=== PATIENT | female | born 1935 | race Hispanic/Latino ===

== ENCOUNTER 2016-05-26 16:02 | Inpatient (IN) | payer OTHER, MEDICARE ==
[2016-05-26 16:33] VITALS: BMI 25.3
[2016-05-26] MEDS ORDERED: Levalbuterol 0.63 MG/3 ML Inhal Soln UD IH PRN (17:02)
[2016-05-26] MEDS: Silver Sulfadiazine 1% Cream (20 gm) TOP SCH (18:01)
[2016-05-26] MEDS: Levalbuterol 0.63 MG/3 ML Inhal Soln UD IH SCH (20:22)
[2016-05-27] MEDS: Levalbuterol 0.63 MG/3 ML Inhal Soln UD IH SCH ×3 (07:45→20:16)
--- NOTE | 2016-05-27 08:32 | CON ---
DATE: 05/26/2016 REFERRING PHYSICIAN: Dr. England. REASON FOR CONSULT: Cough and shortness of breath, history of pulmonary hypertension, also has sleep apnea syndrome but noncompliant with CPAP and BiPAP. HISTORY OF PRESENT ILLNESS: This is an 80-year-old female with past medical history significant for chronic obstructive lung disease, gastroesophageal reflux disease, cardiac diastolic dysfunction, pul monary hypertension, hyperlipidemia, memory impairment, history of rheumatoid arthritis, who came in to acute side of the hospital with shortness of breath, cough, leg swelling. Received diuretics and felt much better. Presently admitted to [facility] to continue care. She has a known history of sleep temperature regulator pyrometer ea syndrome. Did not use CPAP and BiPAP, was claustrophobic. PAST MEDICAL HISTORY: Chronic obstructive lung disease, history of cardiac diastolic dysfunction, sl eep apnea syndrome, hypertension, hyperlipidemia, coronary artery disease; rheumatoid arthritis, been on methotrexate; and thrombocytopenia. ALLERGIES: SHE IS ALLERGIC TO LEVAQUIN, ALBUTEROL, CODEINE. SOCIAL HISTORY: Presently nonsmoker, nondrinker. FAMILY HISTORY: No significant cardiopulmonary disease reported. MEDICATIONS: She is on Colace 100 mg twice a day, Coreg 3.125 mg twice a day, Ecotrin 81 mg daily, L asix 40 mg twice a day, Lipitor 40 mg daily, Lovenox 40 mg daily, Pepcid 40 mg at bedtime, Plavix 75 mg daily, Remeron 30 mg at bedtime, Rocephin 1 g IV daily, Xopenex inhaler q. 6 hours p.r.n. and q. 8 hours around the clock. REVIEW OF SYSTEMS: No headache. Has a stuffy nose and rhinitis, short of breath, mild cough. No ch est pain. No nausea, no vomiting, no diarrhea. Still has trace leg swelling with some erythema. PHYSICAL EXAMINATION: GENERAL: Sitting up in a chair in no acute distress. VITAL SIGNS: Temp is 98, heart rate is 84, respiratory rate is 20, blood pressure 137/85, pulse ox 9 5% on room air. HEENT: Moist mucous membrane. Crowded airway. Nasal mucosa is congested. NECK: Supple. No JVD. LUNGS: Has scattered rhonchi. HEART: S1, S2. ABDOMEN: Soft, nontender. No organomegaly. EXTREMITIES: Does have a trace edema with mild erythema. NEUROLOGIC: Awake, alert, follows simple commands, but forgetful. LABORATORY DATA: Shows hemoglobin 12.9, hematocrit 37.3, WBC 4.8, platelet is 121. INR is 1.14 and PTT 26. Had blood gases done 3 days ago which shows VBG pH 7.31, pCO2 of 61 and O2 of 24. Sodium 14 4, potassium 3.9, chloride 101, bicarbonate 34, BUN 29, creatinine 1.1, glucose is 85, calcium is 9.6 , phosphorus is 4.4, magnesium 2.0. TSH 3.37. She had a V/Q scan done today which shows limited study, particularly the ventilation study. No defi nite evidence of segmental mismatched perfusion defect. Low probability ventilation perfusion scan o f pulmonary embolism. Venous ultrasound: There is no DVT. Had echocardiogram done which shows righ t ventricle systolic pressure is 46, left ventricular ejection fraction is 65, and there is diastolic left ventricular heart failure. Chest x-ray done 3 days ago shows no active pulmonary disease repor lula. There is a pacemaker device. IMPRESSION AND PLAN: Cardiac diastolic dysfunction with pulmonary hypertension, history of chronic l dennis disease, also has a history of sleep apnea syndrome; rheumatoid arthritis, been on methotrexate; recently has a loss of memory, is this Alzheimer's type dementia? I will suggest trying her on CPAP 7 cm, 35% oxygen, while sleeping. I doubt she can keep it but it is worth to try it because, especia lly with cognitive deficits, pulmonary hypertension may be the contribution from sleep apnea syndrome . Continue inhaled bronchodilator. Continue diuretics. Fall precautions. Pulmonary hypertension c ould also be contribution from her connective tissue disease. Thank you, and will follow with you. Berenice Whitt MD cc: [id number] TT: 05/27/2016 08:31:12 Confirmation # [id number] Dictation # [id number] mn
[2016-05-27] MEDS ORDERED: Enoxaparin 40 mg Syringe SC SCH (10:00)
[2016-05-27] MEDS ORDERED: cefTRIAXone 1 gm 100 ML IVPB SCH (10:00)
[2016-05-27] MEDS: Silver Sulfadiazine 1% Cream (20 gm) TOP SCH ×2 (10:20→17:37)
[2016-05-27] MEDS: Multivitamin With Minerals Tab PO SCH (10:21)
[2016-05-27] MEDS: Fluticasone Nasal 50 mcg/Spray NS SCH (10:54)
--- NOTE | 2016-05-27 12:40 | CON ---
DATE: 05/27/2016 REASON FOR CONSULTATION: Cardiac evaluation, shortness of breath, leg edema and congestive heart modesta lure. BRIEF CLINICAL HISTORY: This is an 80-year-old female with past medical history of coronary artery d isease and multiple stents, history of paroxysmal atrial fibrillation, history of obstructive sleep a pnea, history of pharyngeal dysphagia, history of sick sinus syndrome, status post permanent pacemake r, admitted with decompensated congestive heart failure. The patient underwent treatment for CHF in acute medical care floor in telemetry. Now patient transferred to TCU for continuity of the care. C ardiac consult was called for continuity of the care in transitional care unit. PAST MEDICAL HISTORY: Significant for sick sinus syndrome, status post permanent pacemaker; loop rec order that was implanted because of recurrent syncope, found to have 6-second pause, so loop recorder was upgraded to permanent pacemaker; history of cardiac catheterization in 2015. Last stent was do ne on 05/28/2015 where the patient had a stent in the circumflex. History of thrombocytopenia post s tent; off of Plavix for a while. MOST RECENT CARDIAC WORKUP: The patient had echocardiography 05/27/2015 shows normal LV function, mi ld aortic stenosis, trace to mild mitral regurgitation, mild tricuspid regurgitation. Last stress te st 11/18/2015 shows no reversible ischemia 6 months post PTCA, ejection fraction 71%. Last catheteri zation on 05/28/2015 that revealed dominant right coronary artery, left anterior descending artery pa tent stent noted with mild stenosis/40% stenosis noted, distal circumflex and ramus intermedius small caliber vessels, right coronary artery is a large caliber vessel, 60-70%, FFR of 0.79 so not done. PTCA of the circumflex was done and plain balloon angioplasty of the circumflex was done. Again, FFR was 0.91 RCA, so PTCA of RCA was not done. SOCIAL HISTORY: Denies smoking. Denies any history of alcohol abuse. CURRENT MEDICATIONS: The patient is taking multivitamin, Xopenex, Pepcid, Colace, Plavix, aspirin, B enicar, atorvastatin. REVIEW OF SYSTEMS: As per HPI. PHYSICAL EXAMINATION: VITAL SIGNS: Temperature afebrile, heart rate 70, blood pressure 133/75. HEENT: PERRLA. Extraocular muscles intact. NECK: Supple. No carotid bruits. No thyromegaly. CHEST: Clear to auscultation. HEART: S1, S2 regular. ABDOMEN: Soft. EXTREMITIES: Clubbing and cyanosis negative. BLOOD WORKUP: WBC 4.8, hemoglobin 12.9, hematocrit 37.3, platelet count 121. Chemistry shows sodium 144, potassium 3.9, chloride 101, carbon dioxide 34, anion gap of 13, BUN 29, creatinine 1.1. IMPRESSION: Decompensated congestive heart failure, acute on chronic, secondary to diastolic dysfunc tion; mild aortic stenosis, sick sinus syndrome, status post permanent pacemaker; paroxysmal atrial f ibrillation; coronary artery disease, status post multiple stents. No evidence of acute coronary syn drome. Hypertension, hyperlipidemia; obstructive sleep apnea, possible laryngeal dysfunction. RECOMMENDATION: Continue aspirin, continue Plavix, continue Lasix, continue atorvastatin, continue D VT prophylaxis. Continue rehabilitation. CV status is stable. No further cardiac workup is planned . Thank you, Dr. England, for providing the opportunity in taking care of this patient. Will follow marck eduardo. Berenice Maravilla MD cc: [id number] TT: 05/27/2016 12:39:39 Confirmation # [id number] Dictation # [id number]
--- NOTE | 2016-05-27 20:21 | PN ---
DATE: 05/27/2016 REFERRING PHYSICIAN: Dr. England. SUBJECTIVELY: The patient is lying in the bed, head at 45 degrees. Has a nasal voice, mild cough, a nd shortness of breath. No nausea, no vomiting, no diarrhea. Does have leg swelling. OBJECTIVELY: No acute distress. Temp is 98, heart rate is 80, respiratory rate is 20, blood pressure 115/62, pulse ox 100% on nasal c annula. HENT: Moist mucous membranes. Crowded airway. No facial tenderness. NECK: Supple, no JVD. LUNGS: Has fair airflow with few rhonchi. HEART: S1 and S2. ABDOMEN: Soft, nontender. EXTREMITIES: Does have edema. NEUROLOGICALLY: Awake, alert. Follows simple commands. She is very hard of hearing. MEDICATIONS: She is on Colace 100 mg twice a day, Coreg 3.125 mg twice a day, Ecotrin 81 mg daily, F lonase 1 spray each nostril daily, Lasix 40 mg twice a day, Lipitor 40 mg daily, Lovenox 40 mg subQ d aily, Pepcid 40 mg daily, Plavix 75 mg daily, Remeron 30 mg at bedtime, Rocephin 1 g daily, Singulair 10 mg at bedtime, multivitamins daily, Xopenex inhaled q. 6 hours p.r.n. LABORATORY DATA: Shows magnesium today is 2.1. IMPRESSION AND PLAN: Cardiac diastolic dysfunction with pulmonary hypertension, history of chronic l dennis disease, sleep apnea syndrome, rheumatoid arthritis -- been on methotrexate. Will get a CT of the sinuses if no recent one available. If that is clear, will try again CPAP whi le sleeping. Continue p.o. and inhaled bronchodilator. Gastric prophylaxis. DVT prophylaxis. Thank you, and will follow with you. Berenice Whitt MD cc: [id number] TT: 05/27/2016 20:20:30 Confirmation # [id number] Dictation # [id number] colby
[2016-05-27] MEDS: Oxymetazoline 0.05% Nasal Spray (30 ml) NS SCH (21:49)
[2016-05-28] MEDS: Enoxaparin 40 mg Syringe SC SCH (05:19)
[2016-05-28] MEDS ORDERED: cefTRIAXone 1 gm 100 ML IVPB SCH (06:00)
[2016-05-28] MEDS: Levalbuterol 0.63 MG/3 ML Inhal Soln UD IH SCH ×3 (07:25→20:25)
[2016-05-28] MEDS: Oxymetazoline 0.05% Nasal Spray (30 ml) NS SCH ×2 (08:01→21:47)
[2016-05-28] MEDS: Multivitamin With Minerals Tab PO SCH (10:02)
[2016-05-28] MEDS: Fluticasone Nasal 50 mcg/Spray NS SCH (10:03)
[2016-05-28] MEDS: Silver Sulfadiazine 1% Cream (20 gm) TOP SCH ×2 (10:04→17:31)
--- NOTE | 2016-05-28 12:19 | CON ---
DATE: 05/28/2016 The patient is in bed. The patient was seen in room 321, bed 1. CHIEF COMPLAINT: Weakness. HISTORY OF PRESENT ILLNESS: This is an 80-year-old female with past medical history significant for chronic obstructive lung disease, GERD, coronary artery disease with diastolic dysfunction, pulmonary hypertension, hyperlipidemia and rheumatoid arthritis, who was admitted to the acute side with acute shortness of breath. The patient treated and improved, now transferred to transitional care for fur ther treatment. Infectious disease consultation requested by Dr. England for cellulitis of the lower extremity. REVIEW OF SYSTEMS: Reveals the patient has not had any fevers and no chills. She does have shortnes s of breath. She does have cough. No abdominal pain, no diarrhea or constipation. No headaches or blurred vision. PAST MEDICAL HISTORY: Significant for congestive heart failure, coronary artery disease, myocardial infarction, chronic obstructive lung disease, hypertension, diverticulitis, renal cyst, cataract. PAST SURGICAL HISTORY: Significant for cardiac stents with PTCA, right knee replacement, left eye montoya rgery, left lumpectomy of the breast, right rotator cuff surgery. ALLERGIES: THE PATIENT IS ALLERGIC TO CODEINE, ACETAMINOPHEN, LEVAQUIN AND ALBUTEROL. MEDICATIONS: Include the patient to be on vitamins and Remeron, Xopenex, Lasix, Pepcid, Lovenox, Sherwin vix, Coreg, aspirin, Lipitor. PHYSICAL EXAMINATION: GENERAL: The patient is in bed. VITAL SIGNS: Temperature of 98, blood pressure is 120/70, heart rate of 79, respiratory rate of 18. HEENT: Unremarkable. NECK: Supple. LUNGS: Have decreased breath sounds. HEART: Normal S1, S2. ABDOMEN: Soft, nontender. EXTREMITIES: Examination of THE lower extremities reveals there is bilateral lower extremity edema w ith cellulitis and no discharge. Pulses are intact. LABORATORY EXAMINATION: Reveals the patient's white count of 4.8, hemoglobin of 12, platelets of 121 . Chemistries reveal creatinine is 1.1, BUN of 74. Urinalysis is noted. ASSESSMENT AND PLAN: An 80-year-old female with chronic obstructive pulmonary disease, gastroesophag eal reflux disease, congestive heart failure, diastolic; myocardial infarction, hypertension, diverti cular disease, diverticulitis, renal cysts and cataract and hyperlipidemia and pulmonary hypertension , presenting with bilateral lower extremity cellulitis in the face of acute diastolic congestive hear t failure on top of chronic congestive heart failure with mild aortic stenosis and sick sinus syndrom e with a pacemaker. We will treat the patient with Teflaro. We will follow the patient's exam clini myranda and we will make further recommendations. Gino Baer MD cc: 350 TT: 05/28/2016 12:17:46 Confirmation # [id number] Dictation # [id number] tn
--- NOTE | 2016-05-28 20:03 | PN ---
DATE: 05/28/2016 REFERRING PHYSICIAN: Dr. England. SUBJECTIVE: She is ambulating in the room with the help of therapy. Night was unremarkable. She go t some sleep. Still complaining about some throat soreness and change in voice. Nasal airflow is mu ch better today. Cough is better. No nausea, no vomiting, no diarrhea. No leg pain or leg swelling . OBJECTIVE: GENERAL: In no acute distress. VITAL SIGNS: Temperature is 98, heart rate is 70, respiratory rate is 20, blood pressure 129/71, pul se ox 97% on room air. HEENT: Dry mucous membranes. Crowded airway. NECK: Supple, no JVD. Has thrush. LUNGS: Has a fair airflow with a few rhonchi. HEART: S1, S2. ABDOMEN: Soft, nontender. No organomegaly. EXTREMITIES: There is no edema. NEUROLOGIC: Awake, alert, follows simple commands. MEDICATIONS: She is on Afrin 0.05 inhaled twice a day, ceftaroline 400 mg twice a day, Colace 100 mg twice a day, Coreg 3.125 mg twice a day, Ecotrin 81 mg daily, Flonase 1 spray each nostril daily, La six 40 mg twice a day, Lipitor 40 mg daily, Lovenox 40 mg daily, Pepcid 40 mg daily, Plavix 75 mg bozena ly, Remeron 30 mg at bedtime, Singulair 10 mg daily, multivitamins daily, Xopenex inhaled q.6 hours p .r.n. and q.8 hours around the clock. LABORATORY DATA: Shows no new labs are available since yesterday. IMPRESSION AND PLAN: Cardiac diastolic dysfunction, pulmonary hypertension, history of chronic lung disease, sleep apnea syndrome, rheumatoid arthritis, has been on methotrexate. Has some oropharyngea l thrush; will add Diflucan for a few days. Continue antihistamine, inhibitors, inhaled steroi ds, bronchodilators. Gastric prophylaxis and deep venous thrombosis prophylaxis. Fall precaution. Encourage CPAP use. Thank you and will follow with you. Berenice Whitt MD cc: 336 TT: 05/28/2016 20:02:37 Confirmation # [id number] Dictation # [id number] dn
[2016-05-29] MEDS: Enoxaparin 40 mg Syringe SC SCH (05:39)
[2016-05-29] MEDS: Levalbuterol 0.63 MG/3 ML Inhal Soln UD IH SCH ×3 (08:08→19:18)
[2016-05-29] MEDS: Oxymetazoline 0.05% Nasal Spray (30 ml) NS SCH ×2 (08:12→21:21)
[2016-05-29] MEDS: Multivitamin With Minerals Tab PO SCH (09:32)
[2016-05-29] MEDS: Silver Sulfadiazine 1% Cream (20 gm) TOP SCH ×2 (09:32→17:17)
[2016-05-29] MEDS: Fluticasone Nasal 50 mcg/Spray NS SCH (09:32)
--- NOTE | 2016-05-29 13:03 | PN ---
DATE: 05/29/2016 The patient is in bed in no acute distress, nontoxic. PHYSICAL EXAMINATION: VITAL SIGNS: Temperature is 98, blood pressure is 140/60, respiratory rate of 18. HEENT: Unremarkable. NECK: Supple. LUNGS: Have decreased breath sounds. HEART: Normal S1, S2. ABDOMEN: Soft, nontender. ASSESSMENT AND PLAN: This is an 80-year-old female seen earlier today in 321 with chronic obstructiv e lung disease, gastroesophageal reflux disease, congestive heart failure, diastolic congestive heart failure, myocardial infarction, hypertension, diverticular disease, diverticulitis by history and re nal cyst and cataract and hyperlipidemia and pulmonary hypertension and this admission, presenting wi th bilateral lower extremity cellulitis with acute diastolic congestive heart failure on top of chron ic congestive heart failure with mild aortic stenosis and a sick sinus syndrome with a pacemaker, on Teflaro day #2. We will follow closely with you. Gino Baer MD cc: 350 TT: 05/29/2016 13:02:32 Confirmation # [id number] Dictation # [id number] mn
--- NOTE | 2016-05-29 17:06 | PN ---
DATE: 05/29/2016 REFERRING PHYSICIAN: Dr. England SUBJECTIVE: She is sitting side of the bed. Speech therapy is at bedside. Night was unremarkable. Not very fond of CPAP/BiPAP. Feels better. Oropharyngeal area no pain today. No nausea, no vomiti ng, no diarrhea. No leg pain or leg swelling. OBJECTIVE: GENERAL: No acute distress. VITAL SIGNS: Temp is 98, heart rate is 79, respiratory rate is 20, blood pressure 140/65, pulse ox 9 7% on nasal cannula. HEENT: Dry mucous membrane. No ulcer or oral thrush noted. NECK: Supple. No JVD. LUNGS: Has a fair airflow with few rhonchi. HEART: S1 and S2. ABDOMEN: Soft, nontender. No organomegaly. EXTREMITIES: There is no edema. NEUROLOGIC: Awake, alert, follows simple commands. MEDICATIONS: She is on Afrin 0.05 one 1 spray each nostril twice a day, ceftaroline 400 mg daily, Co lace 100 mg twice a day, Coreg 3.125 mg twice a day, Diflucan 100 mg daily, Ecotrin 81 mg daily, Flon ase 1 spray each nostril daily, Lasix 40 mg twice a day, Lipitor 40 mg daily, Lovenox 40 mg daily, Pe pcid 25 mg daily, Remeron is 30 mg at bedtime, Singulair 10 mg at bedtime, multivitamins daily, Xopen ex inhaled q. 6 hours. MICROBIOLOGY: Blood cultures have been negative. IMPRESSION AND PLAN: Cardiac diastolic dysfunction, pulmonary hypertension, history of chronic lung disease, sleep apnea syndrome, rheumatoid arthritis, history of methotrexate use. Case discussed wit h Dr. England in detail. Also spoke to speech therapy. Will continue to encourage CPAP use. Keep he ad at 45 degrees. Continue leukotriene inhibitor, antihistamine, steroid. Use inhaled bronchodilato rs, diuretics. Fall precautions, aspiration precautions. Continue therapy. Thank you and we will follow with you. Berenice Whitt MD cc: 336 TT: 05/29/2016 17:05:50 Confirmation # [id number] Dictation # [id number] en
[2016-05-30] MEDS: Enoxaparin 40 mg Syringe SC SCH (05:46)
[2016-05-30] MEDS: Levalbuterol 0.63 MG/3 ML Inhal Soln UD IH SCH ×3 (07:19→20:36)
[2016-05-30] MEDS: Oxymetazoline 0.05% Nasal Spray (30 ml) NS SCH ×2 (07:50→23:35)
--- NOTE | 2016-05-30 08:10 | PN ---
DATE: 05/28/2016 The patient seems comfortable, no distress. Leg edema is down. She is still on IV Rocephin. The pa elinor has no chest pain, no short of breath. Discussed the patient all her results, VQ scan and claudia rial Doppler. She seems comfortable. PHYSICAL EXAMINATION: VITAL SIGNS: Temperature is 97.4, heart rate 70, blood pressure 129/71, respirations 18, saturation 97%. HEAD AND NECK: Normal. No JVD, no thyromegaly. CHEST: Clear, good air entry. CARDIAC: First sound, second sound normal. ABDOMEN: Soft, obese, nontender. EXTREMITIES: Mild edema lower extremity. NEUROLOGIC: Normal. LABORATORY STUDIES: Shows no labs. IMPRESSION: 1. Bilateral leg cellulitis. ID consultation, Dr. Baer, seen the patient. The patient on Tef laro. 2. Bilateral leg edema, secondary to congestive heart failure. Continue Lasix. 3. Congestive heart failure, pulmonary hypertension, mild, probably secondary to diastolic heart modesta lure, possibility patient may have obstructive sleep apnea. The patient will go for a sleep study. At this time, continue current management. Follow up clinically. 4. Coronary artery disease, acid reflux, history of asthma. PLAN: Continue current management. Follow up clinically. Currently, patient getting Ecotrin, Lasix , Lipitor, Lovenox for deep venous thrombosis prophylaxis, Plavix, Pepcid, Silvadene both lower extre mities, Xopenex and multivitamins, Singulair. Forest England MD cc: 223 TT: 05/30/2016 08:08:56 Confirmation # [id number] Dictation # [id number] en
--- NOTE | 2016-05-30 08:11 | PN ---
DATE: 05/29/2016 The patient seems stable, comfortable, no distress. PHYSICAL EXAMINATION: VITAL SIGNS: Temperature is 97.4, heart rate 77, blood pressure 129/790, saturation 96%. HEAD AND NECK: Normal. No JVD, no thyromegaly. CHEST: Clear, good air entry. CARDIAC: First sound, second sound normal. ABDOMEN: Soft, nontender. EXTREMITIES: Mild edema. Decreased redness. NEUROLOGIC: Normal. IMPRESSION: 1. Cellulitis both lower extremities. Continue Teflaro. 2. Congestive heart failure, acute diastolic on top of chronic. Continue Lasix 40 b.i.d. 3. Hypertension, hypercholesterolemia, coronary artery disease. Continue current medicines. Follow up clinically. 4. Unsteadiness, weakness. Continue physical therapy. The patient will be going out for and she will return back. PLAN: Continue current management. Follow up clinically. Forest England MD cc: 223 TT: 05/30/2016 08:11:02 Confirmation # [id number] Dictation # [id number] en
[2016-05-30] MEDS: Silver Sulfadiazine 1% Cream (20 gm) TOP SCH ×2 (10:00→17:13)
[2016-05-30] MEDS: Multivitamin With Minerals Tab PO SCH (10:01)
[2016-05-30] MEDS: Fluticasone Nasal 50 mcg/Spray NS SCH (10:04)
--- NOTE | 2016-05-30 10:15 | HP ---
DATE OF NOTE: 05/27/2016. REASON FOR ADMISSION: The patient currently admitted for congestive heart failure and lower extremit y edema, also lower extremity cellulitis. HISTORY OF PRESENT ILLNESS: The patient was initially admitted with congestive heart failure, acute diastolic on top of diastolic, also mild pulmonary hypertension. The patient was evaluated and treat ed with IV Lasix. She had an echo which shows good systolic left ventricular functions and enlarged left atrium with abnormal relaxation with high pulmonary pressures in the upper 40s. The patient was evaluated also for clots. Venous Doppler was negative and V/Q scan was low probability. She also h ad arterial Doppler of lower extremity, which was negative. The patient was admitted to TCU for cont inuation of IV therapy, IV antibiotic, Lasix and continuation of current therapy. The patient does h ave a history of coronary artery disease, hypertension, which seems stable. She had last stress test in 05/2015. PAST MEDICAL HISTORY: As above, coronary artery disease, hypertension, hypercholesterolemia, permane nt pacemaker. Cardiac catheterization in 2015 and the last stent was 05/28/2015. The patient also hidalgo s a history of thrombocytopenia secondary to methotrexate, which was resolved and she also has a hist ory of renal insufficiency, which resolved. SOCIAL HISTORY: She lives by herself in a first floor apartment. Her daughter has second floor apar tment. She does not smoke, does not drink. CURRENT MEDICATIONS: The patient getting Xopenex, multivitamins, Plavix, Colace, Pepcid, aspirin, Be nicar and atorvastatin. REVIEW OF SYSTEMS: As in the present illness. PHYSICAL EXAMINATION: VITAL SIGNS: Temperature 97.5, heart rate 85, blood pressure 140/74, respirations 18, saturation 100 %. HEAD AND NECK: Normal. No JVD, no thyromegaly. CHEST: Clear, good entry. CARDIAC: First and second sounds are normal. ABDOMEN: Soft, obese, nontender. EXTREMITIES: Lower extremities, there is bilateral mild edema and there is bilateral mild redness. NEUROLOGIC: Normal. LABORATORY DATA: Magnesium 2.1. IMPRESSION AND PLAN: 1. Acute diastolic heart failure on top of chronic. Continue Lasix, change it to 40 b.i.d. later. 2. Edema, lower extremity, negative venous Doppler, probably secondary to congestive heart failure o r possibly a component of sleep apnea. 3. Bilateral leg cellulitis. Continue Rocephin for now. We will get Dr. aBer for ID consult and will follow up clinically. 4. History of asthma, chronic obstructive pulmonary disease, acid reflux. Continue Xopenex. 5. Coronary artery disease, hypercholesterolemia. Continue Plavix, Lipitor and follow up clinically , and aspirin. Continue current management. Follow up clinically. Forest England MD cc: 223 TT: 05/30/2016 10:14:44 grupo
--- NOTE | 2016-05-30 12:15 | PN ---
DATE: 05/30/2016 The patient is in room 321, bed 1. REASON FOR CONSULTATION: Congestive heart failure, coronary artery disease, history of PTCA. HISTORY OF PRESENT ILLNESS: The patient is an 80-year-old female with past medical history significa nt for coronary artery disease, multiple stents, history of paroxysmal atrial fibrillation, history o f obstructive sleep apnea, history of pharyngeal dysphagia, sick sinus syndrome, status post permanen t pacemaker insertion, admitted with decompensated congestive heart failure. The patient underwent treatment on medical floor and she improved and now she is transferred to transitional care unit for deconditioning and physical therapy. The patient complaining arthritic pains into both hand and shou lder and back. The patient known to have arthritis. The patient denies any chest pain. Shortness o f breath is stable. The patient's cardiac workup history has been mentioned in our consult of 2016. His last stress test was 11/18/2015. It was negative for ischemia and LV ejection fraction wa s 71%. PHYSICAL EXAMINATION: VITAL SIGNS: Blood pressure 118/68. Earlier it was recorded 137/96, respirations 18, pulse 68, temp erature 98. HEAD: Normocephalic. EYES: Pupils normal. Conjunctivae are normal. NECK: JVP low. Carotid equal. THORAX: AP diameter normal. LUNGS: No rales. CARDIOVASCULAR: S1, S2, systolic murmur, no rub. ABDOMEN: Soft, nontender, no organomegaly. EXTREMITIES: No clubbing, no cyanosis. LABORATORY DATA: Magnesium level 2.1. Other labs were reported in our previous notes on the medical floor. DIAGNOSES: Decompensated congestive heart failure, acute on chronic, secondary to diastolic dysfunct ion, mild aortic stenosis, sick sinus syndrome, status post permanent pacemaker insertion, paroxysmal atrial fibrillation, coronary artery disease, status post multiple stents, hypertension, hyperlipide arian, obstructive sleep apnea, possible laryngeal dysfunction, arthritis. PLAN: We will continue Lovenox 40 mg daily, Pepcid 40 mg at bedtime, Plavix 75 mg daily, Remeron 30 mg at bedtime. The patient is also getting Singulair 10 mg at bedtime, Teflaro 400 mg IV b.i.d., Xop enex hand nebulizer therapy. We will continue present therapy and we will follow with you. Continue physical therapy. Berenice Osman MD cc: [phone] TT: 05/30/2016 12:15:32 Confirmation # [id number] Dictation # [id number] jn
--- NOTE | 2016-05-30 15:58 | CP.PCM.PN ---
Subjective - Date & Time of Evaluation Date of Evaluation: 05/30/16 Time of Evaluation: 10:40 - Subjective Subjective: Legs feel better, no acute events overnight, less swelling of the legs, no fevers overnight. Objective - Vital Signs/Intake and Output Vital Signs (last 24 hours): Temp Pulse Resp BP Pulse Ox 97.9 F 68 18 118/68 94 L 05/30/16 10:00 05/30/16 10:00 05/30/16 10:00 05/30/16 10:05 05/30/16 10:00 Intake and Output: 05/30/16 05/30/16 06:59 18:59 Intake Total 520 420 Balance 520 420 - Medications Medications: Current Medications Aspirin (Ecotrin) 81 mg PO 0800 LYNDSEY PRN Reason: Protocol Last Admin: 05/30/16 07:52 Dose: 81 mg Atorvastatin Calcium (Lipitor) 40 mg PO DIN LYNDSEY PRN Reason: Protocol Last Admin: 05/29/16 17:17 Dose: 40 mg Carvedilol (Coreg) 3.125 mg PO 0800,1800 LYNDSEY PRN Reason: Protocol Last Admin: 05/30/16 07:51 Dose: 3.125 mg Clopidogrel Bisulfate (Plavix) 75 mg PO DAILY LYNDESY PRN Reason: Protocol Last Admin: 05/30/16 10:00 Dose: 75 mg Docusate Sodium (Colace) 100 mg PO BID LYNDSEY PRN Reason: Protocol Last Admin: 05/30/16 10:04 Dose: 100 mg Enoxaparin Sodium (Lovenox) 40 mg SC 0600 LYNDSEY PRN Reason: Protocol Last Admin: 05/30/16 05:46 Dose: 40 mg Famotidine (Pepcid) 40 mg PO HS LYNDSEY PRN Reason: Protocol Last Admin: 05/29/16 21:22 Dose: 40 mg Fluconazole (Diflucan) 100 mg PO DAILY LYNDSEY PRN Reason: Protocol Last Admin: 05/30/16 10:04 Dose: 100 mg Fluticasone Propionate (Flonase) 1 actuation NS DAILY LYNDSEY Last Admin: 05/30/16 10:04 Dose: 1 spr Furosemide (Lasix) 40 mg PO BID LYNDSEY PRN Reason: Protocol Last Admin: 05/30/16 10:05 Dose: 40 mg Ceftaroline Fosamil 400 mg/ (Sodium Chloride) 100 mls @ 100 mls/hr IVPB 0600, 1800 LYNDSEY PRN Reason: Protocol Stop: 06/04/16 06:01 Last Admin: 05/30/16 05:45 Dose: 100 mls/hr Levalbuterol HCl (Xopenex) 0.63 mg IH TIDRESP LYNDSEY PRN Reason: Protocol Last Admin: 05/30/16 13:26 Dose: Not Given Levalbuterol HCl (Xopenex) 0.63 mg IH I0RIYUL PRN; Protocol PRN Reason: Shortness of Breath Meloxicam (Mobic) 15 mg PO DAILY LYNDSEY PRN Reason: Protocol Mirtazapine (Remeron) 30 mg PO HS LYNDSEY PRN Reason: Protocol Last Admin: 05/29/16 21:22 Dose: 30 mg Montelukast Sodium (Singulair) 10 mg PO HS LYNDSEY Last Admin: 05/29/16 21:22 Dose: 10 mg Multivitamins/Minerals (Therapeutic-M Tab) 1 tab PO DAILY LYNDSEY PRN Reason: Protocol Last Admin: 05/30/16 10:01 Dose: 1 tab Oxymetazoline HCl (Afrin 0.05%) 0 ml NS Q12H [facility] Stop: 05/30/16 23:59 Last Admin: 05/30/16 07:50 Dose: 2 spr Silver Sulfadiazine (Silvadene 1% 20 Gm) 0 ea TOP BID LYNDSEY PRN Reason: Protocol Last Admin: 05/30/16 10:00 Dose: 1 appl - Constitutional Appears: Non-toxic, No Acute Distress - Head Exam Head Exam: NORMAL INSPECTION - Respiratory Exam Respiratory Exam: Decreased Breath Sounds - Cardiovascular Exam Cardiovascular Exam: +S1, +S2 - GI/Abdominal Exam GI & Abdominal Exam: Soft. absent: Tenderness - Extremities Exam Additional comments: decreased sweling and erythema of both lower extremities Assessment and Plan - Assessment and Plan (Free Text) Plan: Assessment bilateral lower extremity cellulitis, clinically improving, in a patient with acute decompensated heart failure (which is also clinically improving) COPD GERD chronic CHF CAD HTN history of diverticulitis dyslipidemia sick sinus syndrome S/P pacemaker placement pulmonary HTN Plan continue Teflaro (day 3) and continue to monitor clinically; aim for 5-7 days of antibiotics
--- NOTE | 2016-05-30 21:27 | PN ---
DATE: 05/30/2016 REFERRING PHYSICIAN: Dr. England. SUBJECTIVE: She is sitting side of the bed. Daughter at bedside. Night was unremarkable. Yesterday she went out for [employer] parade. Still has some stuffy nose, mild cough, no sputum produc tion, no nausea, no vomiting, diarrhea. No leg pain or leg swelling. OBJECTIVE: GENERAL: No acute distress. VITAL SIGNS: Temperature is 98, heart rate 62, respiratory rate is 20, blood pressure 126/67, pulse ox 100% on nasal cannula. HEENT: Moist mucous membrane. No ulcer or oral thrush noted. NECK: Supple. No JVD. Nasal mucosa looks okay. LUNGS: Have a few scattered rhonchi. HEART: S1 and S2. ABDOMEN: Soft, nontender, no splenomegaly. EXTREMITIES: No edema. NEUROLOGIC: The patient follows simple commands. MEDICATIONS: She is on Ecotrin 81 mg daily, Flonase 1 spray each nostril daily, Lasix 40 mg twice a day, Lipitor 40 mg daily, Lovenox 40 mg daily, Mobic 15 mg daily, Pepcid 40 mg daily, Plavix 75 mg da [place], prednisone 10 mg for 4 days is started, Remeron 30 mg at bedtime, Singulair 10 mg daily, multivi tamins daily, Xopenex inhaled q. 6 hours. LABORATORY DATA: Microbiology: Blood cultures have been negative. IMPRESSION AND PLAN: Cardiac diastolic dysfunction, pulmonary hypertension, history of chronic lung disease, sleep apnea syndrome, rheumatoid arthritis, history of methotrexate use. I spoke to the amanda rhoades and her daughter in detail. Known to have sleep apnea, but refusing to use CPAP. Case also dis cussed with Dr. England. We will add Mucinex twice a day. Continue Tessalon Perles for now, antibiot ics. Will be started on prednisone tomorrow. Keep head elevated at 45 degrees. We will follow with you. Berenice Whitt MD cc: [phone] TT: 05/30/2016 21:26:44 Confirmation # [id number] Dictation # [id number] grupo
[2016-05-30] MEDS: guaiFENesin-DM 600-30 mg ER Tab PO SCH (21:55)
[2016-05-31] MEDS: Enoxaparin 40 mg Syringe SC SCH (06:00)
[2016-05-31] MEDS: Levalbuterol 0.63 MG/3 ML Inhal Soln UD IH SCH ×3 (07:35→20:01)
[2016-05-31] MEDS: guaiFENesin-DM 600-30 mg ER Tab PO SCH (09:32)
[2016-05-31] MEDS: Multivitamin With Minerals Tab PO SCH (09:32)
[2016-05-31] MEDS: Fluticasone Nasal 50 mcg/Spray NS SCH (09:33)
[2016-05-31] MEDS: Silver Sulfadiazine 1% Cream (20 gm) TOP SCH ×2 (10:03→17:34)
--- NOTE | 2016-05-31 13:38 | PN ---
DATE: 05/31/2016 REASON FOR CONSULTATION AND FOLLOWUP: Congestive heart failure, coronary artery disease, history of PTCA. BRIEF CLINICAL HISTORY: This is an 80-year-old female with a past medical history significant for co ronary artery disease status multiple stent, status post ____ pacemaker, admitted with to acute care and now patient is in transitional care unit for the continuity of care. Denies any chest pain, shor tness of breath. Complained of cough. PHYSICAL EXAMINATION: As follows: VITAL SIGNS: Temperature afebrile, heart rate 63, blood pressure 112/60. HEENT: PERRLA, intact. NECK: Supple. No carotid bruits. No thyromegaly. CHEST: Clear to auscultation. HEART: S1, S2 regular. ABDOMEN: Soft. EXTREMITIES: Clubbing and cyanosis negative. BLOOD WORKUP: Magnesium on 05/27 was 2.1. IMPRESSION: Coronary artery disease, status post multiple stent, congestive heart failure improved, fluid overload, preserved left ventricular function, congestive heart failure secondary to diastolic dysfunction, mild aortic stenosis, sick sinus syndrome, status post permanent pacemaker, hypertension , hyperlipidemia. RECOMMENDATION: Continue DVT prophylaxis. Continue aspirin. Continue Plavix. Continue Seroquel. We will give antitussive medication for cough suppression. We will follow with you. Thank you, Dr. England, for providing the opportunity in taking care of this patient. Berenice Maravilla MD cc: [phone] TT: 05/31/2016 13:37:21 Confirmation # [id number] Dictation # [id number]
--- NOTE | 2016-05-31 17:04 | CP.PCM.PN ---
Subjective - Date & Time of Evaluation Date of Evaluation: 05/31/16 Time of Evaluation: 10:20 - Subjective Subjective: Comfortable, afebrile, not in distress. Objective - Vital Signs/Intake and Output Vital Signs (last 24 hours): Temp Pulse Resp BP Pulse Ox 97 F L 63 18 112/60 98 05/31/16 10:00 05/31/16 10:00 05/31/16 10:00 05/31/16 10:00 05/31/16 10:00 Intake and Output: 05/31/16 05/31/16 06:59 18:59 Intake Total 420 Balance 420 - Medications Medications: Current Medications Aspirin (Ecotrin) 81 mg PO 0800 LYNDSEY PRN Reason: Protocol Last Admin: 05/31/16 08:01 Dose: 81 mg Atorvastatin Calcium (Lipitor) 40 mg PO DIN LYNDSEY PRN Reason: Protocol Last Admin: 05/30/16 17:10 Dose: 40 mg Carvedilol (Coreg) 3.125 mg PO 0800,1800 LYNDSEY PRN Reason: Protocol Last Admin: 05/31/16 08:01 Dose: 3.125 mg Clopidogrel Bisulfate (Plavix) 75 mg PO 0800 LYNDSEY PRN Reason: Protocol Last Admin: 05/31/16 08:01 Dose: 75 mg Docusate Sodium (Colace) 100 mg PO BID LYNDSEY PRN Reason: Protocol Last Admin: 05/31/16 09:32 Dose: 100 mg Enoxaparin Sodium (Lovenox) 40 mg SC 0600 LYNDSEY PRN Reason: Protocol Last Admin: 05/31/16 06:00 Dose: 40 mg Famotidine (Pepcid) 40 mg PO HS LYNDSEY PRN Reason: Protocol Last Admin: 05/30/16 21:56 Dose: 40 mg Fluconazole (Diflucan) 100 mg PO 0800 LYNDSEY PRN Reason: Protocol Last Admin: 05/31/16 08:01 Dose: 100 mg Fluticasone Propionate (Flonase) 1 actuation NS DAILY [facility] Last Admin: 05/31/16 09:33 Dose: 1 spr Furosemide (Lasix) 40 mg PO BID LYNDSEY PRN Reason: Protocol Last Admin: 05/31/16 09:32 Dose: 40 mg Guaifenesin/Dextromethorphan (Robitussin Dm) 5 ml PO Q4H PRN PRN Reason: Cough Ceftaroline Fosamil 400 mg/ (Sodium Chloride) 100 mls @ 100 mls/hr IVPB 0600, 1800 LYNDSEY PRN Reason: Protocol Stop: 06/04/16 06:01 Last Admin: 05/31/16 06:00 Dose: 100 mls/hr Levalbuterol HCl (Xopenex) 0.63 mg IH TIDRESP LYNDSEY PRN Reason: Protocol Last Admin: 05/31/16 14:08 Dose: 0.63 mg Levalbuterol HCl (Xopenex) 0.63 mg IH [id number] PRN; Protocol PRN Reason: Shortness of Breath Meloxicam (Mobic) 15 mg PO DAILY LYNDSEY PRN Reason: Protocol Last Admin: 05/31/16 09:32 Dose: 15 mg Mirtazapine (Remeron) 30 mg PO HS LYNDSEY PRN Reason: Protocol Last Admin: 05/30/16 21:56 Dose: 30 mg Montelukast Sodium (Singulair) 10 mg PO HS LYNDSEY Last Admin: 05/30/16 21:57 Dose: 10 mg Multivitamins/Minerals (Therapeutic-M Tab) 1 tab PO DAILY LYNDSEY PRN Reason: Protocol Last Admin: 05/31/16 09:32 Dose: 1 tab Prednisone (Prednisone Tab) 10 mg PO 0800 LYNDSEY PRN Reason: Protocol Stop: 06/04/16 10:00 Last Admin: 05/31/16 08:01 Dose: 10 mg Silver Sulfadiazine (Silvadene 1% 20 Gm) 0 ea TOP BID LYNDSEY PRN Reason: Protocol Last Admin: 05/31/16 10:03 Dose: 1 appl - Constitutional Appears: Non-toxic, No Acute Distress - Head Exam Head Exam: NORMAL INSPECTION - ENT Exam ENT Exam: Mucous Membranes Moist - Neck Exam Neck Exam: absent: Lymphadenopathy, Meningismus - Respiratory Exam Respiratory Exam: Decreased Breath Sounds - Cardiovascular Exam Cardiovascular Exam: +S1, +S2 - GI/Abdominal Exam GI & Abdominal Exam: Soft. absent: Tenderness Assessment and Plan - Assessment and Plan (Free Text) Plan: Assessment bilateral lower extremity cellulitis, clinically improving, in a patient with acute decompensated heart failure (which is also clinically improving) COPD GERD chronic CHF CAD HTN history of diverticulitis dyslipidemia sick sinus syndrome S/P pacemaker placement pulmonary HTN Plan continue Teflaro (day 4) and continue to monitor clinically; aim for 5-7 days of antibiotics
--- NOTE | 2016-05-31 19:28 | CP.PCM.PN ---
Subjective - Date & Time of Evaluation Date of Evaluation: 05/31/16 Time of Evaluation: 19:27 - Subjective Subjective: # 22 angiocath was inserted in right forearm. Dx:Poor venous access. Objective - Vital Signs/Intake and Output Vital Signs (last 24 hours): Temp Pulse Resp BP Pulse Ox 97 F L 63 18 138/78 98 05/31/16 10:00 05/31/16 17:33 05/31/16 10:00 05/31/16 17:34 05/31/16 10:00 Intake and Output: 05/31/16 06/01/16 18:59 06:59 Intake Total 420 Balance 420 - Medications Medications: Current Medications Aspirin (Ecotrin) 81 mg PO 0800 LYNDSEY PRN Reason: Protocol Last Admin: 05/31/16 08:01 Dose: 81 mg Atorvastatin Calcium (Lipitor) 40 mg PO DIN LYNDSEY PRN Reason: Protocol Last Admin: 05/31/16 17:34 Dose: 40 mg Carvedilol (Coreg) 3.125 mg PO 0800,1800 LYNDSEY PRN Reason: Protocol Last Admin: 05/31/16 17:33 Dose: 3.125 mg Clopidogrel Bisulfate (Plavix) 75 mg PO 0800 LYNDSEY PRN Reason: Protocol Last Admin: 05/31/16 08:01 Dose: 75 mg Docusate Sodium (Colace) 100 mg PO BID LYNDSEY PRN Reason: Protocol Last Admin: 05/31/16 17:33 Dose: 100 mg Enoxaparin Sodium (Lovenox) 40 mg SC 0600 LYNDSEY PRN Reason: Protocol Last Admin: 05/31/16 06:00 Dose: 40 mg Famotidine (Pepcid) 40 mg PO HS LYNDSEY PRN Reason: Protocol Last Admin: 05/30/16 21:56 Dose: 40 mg Fluconazole (Diflucan) 100 mg PO 0800 LYNDSEY PRN Reason: Protocol Last Admin: 05/31/16 08:01 Dose: 100 mg Fluticasone Propionate (Flonase) 1 actuation NS DAILY LYNDSEY Last Admin: 05/31/16 09:33 Dose: 1 spr Furosemide (Lasix) 40 mg PO BID LYNDSEY PRN Reason: Protocol Last Admin: 05/31/16 17:34 Dose: 40 mg Guaifenesin/Dextromethorphan (Robitussin Dm) 5 ml PO Q4H PRN PRN Reason: Cough Ceftaroline Fosamil 400 mg/ (Sodium Chloride) 100 mls @ 100 mls/hr IVPB 0600, 1800 LYNDSEY PRN Reason: Protocol Stop: 06/04/16 06:01 Last Admin: 05/31/16 17:34 Dose: 100 mls/hr Levalbuterol HCl (Xopenex) 0.63 mg IH TIDRESP LYNDSEY PRN Reason: Protocol Last Admin: 05/31/16 14:08 Dose: 0.63 mg Levalbuterol HCl (Xopenex) 0.63 mg IH [id number] PRN; Protocol PRN Reason: Shortness of Breath Meloxicam (Mobic) 15 mg PO DAILY LYNDSEY PRN Reason: Protocol Last Admin: 05/31/16 09:32 Dose: 15 mg Mirtazapine (Remeron) 30 mg PO HS LYNDSEY PRN Reason: Protocol Last Admin: 05/30/16 21:56 Dose: 30 mg Montelukast Sodium (Singulair) 10 mg PO HS LYNDSEY Last Admin: 05/30/16 21:57 Dose: 10 mg Multivitamins/Minerals (Therapeutic-M Tab) 1 tab PO DAILY LYNDSEY PRN Reason: Protocol Last Admin: 05/31/16 09:32 Dose: 1 tab Prednisone (Prednisone Tab) 10 mg PO 0800 LYNDSEY PRN Reason: Protocol Stop: 06/04/16 10:00 Last Admin: 05/31/16 08:01 Dose: 10 mg Silver Sulfadiazine (Silvadene 1% 20 Gm) 0 ea TOP BID LYNDSEY PRN Reason: Protocol Last Admin: 05/31/16 17:34 Dose: 1 appl
--- NOTE | 2016-06-01 01:20 | PN ---
DATE: 05/31/2016 REFERRING PHYSICIAN: Dr. England. SUBJECTIVE: She is lying in the bed, sleepy, arousable, was snoring, having apnea events. Nursing s taff at bedside. Refusing to use CPAP and BiPAP, has some stuffy nose, mild cough, no sputum product ion, no nausea, no vomiting, diarrhea. No leg pain or leg swelling. OBJECTIVE: GENERAL: No acute distress. VITAL SIGNS: Temp is 98, heart rate 63, respiratory rate is 18, blood pressure 138/78, pulse ox 98% on nasal cannula. HEENT: Moist mucous membrane. Crowded airway. Mallampati score is 4. NECK: Supple. No JVD. LUNGS: Has a fair airflow with few rhonchi. HEART: S1 and S2. ABDOMEN: Soft, nontender. No organomegaly. EXTREMITIES: There is not much edema. NEUROLOGIC: Sleepy, arousable, follows simple command. MEDICATIONS: She is on ceftaroline 400 mg twice a day, Colace 100 mg twice a day, Coreg 3.125 mg twi ce a day, Diflucan 100 mg daily, Ecotrin 81 mg daily, Flonase 1 spray each nostril daily, Lasix 40 mg twice a day, Lipitor 40 mg daily, Lovenox 40 mg daily, Mobic 15 mg daily, Pepcid 20 mg daily, Plavix 75 mg daily, prednisone 10 mg daily, Remeron 30 mg at bedtime, Robitussin-DM 5 mL q. 4 hours p.r.n. , Silvadene cream at affected area, Singulair 10 mg daily, multivitamins daily, Xopenex inhaled q. 6 hours. LABORATORY DATA: Reviewed. No new lab is available. Microbiology: Blood cultures have been negati ve. IMPRESSION AND PLAN: Cardiac diastolic dysfunction, pulmonary hypertension, chronic lung disease, sl eep apnea syndrome, rheumatoid arthritis on steroids. I had a long discussion with the patient and [facility] staff about sleep apnea and its consequences. Encourage the patient to use CPAP. She does no t like nasal or full face mask. Hospital does not carry nasal pillow mask. Outpatient can offer her nasal pillow make, will try it. For now keep head elevated at 45 degree. Continue bronchodilator. Continue diuretics. Careful with sedation. Thank you and we will follow with you. Berenice Whitt MD cc: [phone] TT: 06/01/2016 01:19:59 Confirmation # [id number] Dictation # [id number] jn
[2016-06-01] MEDS: Enoxaparin 40 mg Syringe SC SCH (05:58)
[2016-06-01] MEDS: Levalbuterol 0.63 MG/3 ML Inhal Soln UD IH SCH ×3 (07:20→20:01)
[2016-06-01] MEDS: Fluticasone Nasal 50 mcg/Spray NS SCH (09:57)
[2016-06-01] MEDS: Multivitamin With Minerals Tab PO SCH (10:00)
--- NOTE | 2016-06-01 10:03 | PN ---
DATE: 05/31/2016 The patient is comfortable, no distress. Her pain is much better. No new complaints. Her physical therapy is doing better. PHYSICAL EXAMINATION: VITAL SIGNS: Temperature 97, heart rate 63, blood pressure 112/60, respiration 18, saturation 98%. HEAD AND NECK: Normal. No JVD, no thyromegaly. CHEST: Clear, good air entry. CARDIAC: First and second sounds are normal. ABDOMEN: Soft, nontender. EXTREMITIES: Mild edema, improved significantly. NEUROLOGIC: Normal. IMPRESSION AND PLAN: 1. Generalized weakness, unsteady gait. Continue physical therapy. 2. Congestive heart failure with acute diastolic heart failure on top of chronic. Continue diuretic s. Questionable obstructive sleep apnea. The patient may need a sleep study. 3. Hypertension, stable. 4. Coronary artery disease. The patient has no chest pain. Seems stable. Seen by options advisor, Dr Petey Maravilla. Continue current treatment. 5. Rheumatoid arthritis, history of thrombocytopenia in the past secondary to methotrexate; seems to be doing well. The patient currently on prednisone plus Mobic p.o. daily, seems to be doing better. 6. Bilateral leg cellulitis. Continue Teflaro. PLAN: Continue current treatment and medication. MEDICATION THE PATIENT HAS HERE: She is getting Coreg 3.125 mg p.o. daily, Diflucan 100 mg daily, as pirin 81 mg once a day, Flonase, Lasix 40 p.o. b.i.d., Lipitor 40 mg p.o. at bedtime, Lovenox 40 subQ daily, Mobic 15 mg p.o. daily, Pepcid 40 mg p.o. daily, Plavix 75 mg p.o. daily, prednisone 10 mg 1 a day for 3 more days, Remeron 30 mg once a day, Silvadene cream to both lower extremities, Singulai r 10 mg once a day, multivitamins once a day, Xopenex bronchodilator q.i.d. Continue current medicines. Follow up clinically. Forest England MD cc: [phone] TT: 06/01/2016 10:02:42 Confirmation # [id number] Dictation # [id number] mn
--- NOTE | 2016-06-01 10:14 | PN ---
DATE: 05/30/2016 The patient seems to be doing better. She complained less of pain on current medications. She has n o chest pain, no shortness of breath. PHYSICAL EXAMINATION: VITAL SIGNS: Temperature 97.9, heart rate 62, blood pressure 125/67, respiration 18, saturation 100% . HEAD AND NECK: Normal. No JVD, no thyromegaly. CHEST: Clear, good entry. CARDIAC: First sound and second sound are normal. ABDOMEN: Soft, obese, nontender. EXTREMITIES: No edema. NEUROLOGIC: Normal. LABORATORY DATA: No labs done. IMPRESSION AND PLAN: 1. Cellulitis, both lower extremities. Continue Teflaro IV antibiotic. 2. Chronic diastolic heart failure with acute exacerbation. Continue Lasix, doing well, currently o n 40 mg. 3. Acid reflux, history of asthma, COPD. Continue bronchodilators. 4. Hypertension, hypercholesterolemia, coronary artery disease. Continue current medications. 5. Generalized weakness. Continue physical therapy. 6. Rheumatoid arthritis. The patient currently on Mobic. The patient was given steroids, prednison e 10 mg to help her symptoms and Mobic 15 mg. Will continue current therapy. 7. Continue gastrointestinal and deep vein thrombosis prophylaxis. Follow up clinically. Forest England MD cc: [phone] TT: 06/01/2016 10:14:26 Confirmation # [id number] Dictation # [id number]
[2016-06-01] MEDS: Silver Sulfadiazine 1% Cream (20 gm) TOP SCH ×2 (10:25→17:28)
--- NOTE | 2016-06-01 12:23 | PN ---
DATE: 06/01/2016 The patient is in room 321, bed 1. REASON FOR CONSULTATION AND FOLLOWUP: Congestive heart failure, coronary artery disease, history of PTCA. HISTORY OF PRESENT ILLNESS: The patient is an 80-year-old female with past medical history significa nt for coronary artery disease, status post multiple stents, status post pacemaker insertion, admitte d with swelling of the legs and shortness of breath on acute medical unit. The patient improved with therapy, and now she is in transitional care unit for deconditioning and physical therapy. The milana ent complains of cough and general aches and pain. PHYSICAL EXAMINATION: VITAL SIGNS: Blood pressure 90/52, respirations 18, pulse 71, temperature 97.2. HEAD: Normocephalic. EYES: Pupils are normal. Conjunctivae are normal. NOSE AND THROAT: Normal. NECK: JVP low. Carotids equal. THORAX: AP diameter normal. LUNGS: No rales. CARDIOVASCULAR: S1, S2. ABDOMEN: Soft, nontender. No organomegaly. EXTREMITIES: The patient's edema on the legs has cleared. LABORATORY DATA: Magnesium is 2.1. Other labs are done on the medical floor and reported on previo us notes. DIAGNOSES: Coronary artery disease status post multiple stents, congestive heart failure -improved, fluid overload, preserved left ventricular systolic function, congestive heart failure secondary to d iastolic dysfunction, mild aortic stenosis, status post permanent pacemaker insertion for sick sinus syndrome, hypertension, hyperlipidemia. PLAN: We will continue physical therapy and continue present medication - Coreg 3.125 b.i.d., aspiri n 81 mg p.o. daily, furosemide 40 p.o. b.i.d., Lipitor 40 mg daily, Lovenox 40 mg subQ daily, Mobic 1 5 mg p.o. daily, Plavix 75 mg p.o. daily, Singulair 10 mg at bedtime, prednisone 10 mg p.o. daily. We will continue present therapy. We will check SMA-7, magnesium, phosphorus, and CBC in the morning . Berenice Osman MD cc: [phone] TT: 06/01/2016 12:22:10 Confirmation # [id number] Dictation # [id number] jn
--- NOTE | 2016-06-01 15:15 | CP.PCM.PN ---
Subjective - Date & Time of Evaluation Date of Evaluation: 06/01/16 Time of Evaluation: 14:35 - Subjective Subjective: Comfortable in bed, legs feels better, no fevers, no events overnight, no nausea , no diarrhea. Objective - Vital Signs/Intake and Output Vital Signs (last 24 hours): Temp Pulse Resp BP Pulse Ox 97.2 F L 71 18 90/52 L 94 L 06/01/16 10:00 06/01/16 10:00 06/01/16 10:00 06/01/16 10:00 06/01/16 10:00 Intake and Output: 06/01/16 06/01/16 06:59 18:59 Intake Total 420 Balance 420 - Medications Medications: Current Medications Aspirin (Ecotrin) 81 mg PO 0800 LYNDSEY PRN Reason: Protocol Last Admin: 06/01/16 07:39 Dose: 81 mg Atorvastatin Calcium (Lipitor) 40 mg PO DIN LYNDSEY PRN Reason: Protocol Last Admin: 05/31/16 17:34 Dose: 40 mg Carvedilol (Coreg) 3.125 mg PO 0800,1800 LYNDSEY PRN Reason: Protocol Last Admin: 06/01/16 07:38 Dose: 3.125 mg Clopidogrel Bisulfate (Plavix) 75 mg PO 0800 LYNDSEY PRN Reason: Protocol Last Admin: 06/01/16 07:39 Dose: 75 mg Docusate Sodium (Colace) 100 mg PO BID LYNDSEY PRN Reason: Protocol Last Admin: 06/01/16 09:56 Dose: 100 mg Enoxaparin Sodium (Lovenox) 40 mg SC 0600 LYNDSEY PRN Reason: Protocol Last Admin: 06/01/16 05:58 Dose: 40 mg Famotidine (Pepcid) 40 mg PO HS LYNDSEY PRN Reason: Protocol Last Admin: 05/31/16 21:47 Dose: Not Given Fluconazole (Diflucan) 100 mg PO 0800 LYNDSEY PRN Reason: Protocol Last Admin: 06/01/16 07:39 Dose: 100 mg Fluticasone Propionate (Flonase) 1 actuation NS DAILY [facility] Last Admin: 06/01/16 09:57 Dose: 1 spr Furosemide (Lasix) 40 mg PO BID LYNDSEY PRN Reason: Protocol Last Admin: 06/01/16 09:57 Dose: Not Given Guaifenesin/Dextromethorphan (Robitussin Dm) 5 ml PO Q4H PRN PRN Reason: Cough Ceftaroline Fosamil 400 mg/ (Sodium Chloride) 100 mls @ 100 mls/hr IVPB 0600, 1800 LYNDSEY PRN Reason: Protocol Stop: 06/04/16 06:01 Last Admin: 06/01/16 06:01 Dose: 100 mls/hr Levalbuterol HCl (Xopenex) 0.63 mg IH TIDRESP LYNDSEY PRN Reason: Protocol Last Admin: 06/01/16 07:20 Dose: 0.63 mg Levalbuterol HCl (Xopenex) 0.63 mg IH [id number] PRN; Protocol PRN Reason: Shortness of Breath Meloxicam (Mobic) 15 mg PO DAILY LYNDSEY PRN Reason: Protocol Last Admin: 06/01/16 09:58 Dose: 15 mg Mirtazapine (Remeron) 30 mg PO HS LYNDSEY PRN Reason: Protocol Last Admin: 05/31/16 21:47 Dose: Not Given Montelukast Sodium (Singulair) 10 mg PO HS LYNDSEY Last Admin: 05/31/16 21:47 Dose: Not Given Multivitamins/Minerals (Therapeutic-M Tab) 1 tab PO DAILY LYNDSEY PRN Reason: Protocol Last Admin: 06/01/16 10:00 Dose: 1 tab Prednisone (Prednisone Tab) 10 mg PO 0800 LYNDSEY PRN Reason: Protocol Stop: 06/04/16 10:00 Last Admin: 06/01/16 07:39 Dose: 10 mg Silver Sulfadiazine (Silvadene 1% 20 Gm) 0 ea TOP BID LYNDSEY PRN Reason: Protocol Last Admin: 05/31/16 17:34 Dose: 1 appl - Constitutional Appears: Non-toxic, No Acute Distress - Head Exam Head Exam: NORMAL INSPECTION - ENT Exam ENT Exam: Mucous Membranes Moist - Neck Exam Neck Exam: absent: Lymphadenopathy, Meningismus - Respiratory Exam Respiratory Exam: Decreased Breath Sounds - Cardiovascular Exam Cardiovascular Exam: +S1, +S2 - GI/Abdominal Exam GI & Abdominal Exam: Soft. absent: Tenderness - Extremities Exam Additional comments: much improved redness and swelling of both lower extremities Assessment and Plan - Assessment and Plan (Free Text) Plan: Assessment bilateral lower extremity cellulitis, clinically improving, in a patient with acute decompensated heart failure (which is also clinically improving) COPD GERD chronic CHF CAD HTN history of diverticulitis dyslipidemia sick sinus syndrome S/P pacemaker placement pulmonary HTN Plan continue Teflaro (day 5);aim for 5-7 days of antibiotics - may d/c antibiotics by tomorrow will follow clinically
--- NOTE | 2016-06-01 15:30 | PN ---
DATE: 06/01/2016 REFERRING PHYSICIAN: Dr. England. SUBJECTIVE: The patient is lying in the bed, sleepy, arousable, refused to use BiPAP last night. No nausea, no vomiting. Mild cough. No dysuria. No leg pain or leg swelling. OBJECTIVE: GENERAL: No acute distress. VITAL SIGNS: Temp is 98, heart rate is 71, respiratory rate is 18, blood pressure 90/52, pulse ox 94 % on 35% oxygen. HEENT: Dry mucous membrane. Crowded airway. NECK: Supple, no JVD. LUNGS: Have a fair airflow with few rhonchi. HEART: S1, S2. ABDOMEN: Soft, nontender. No organomegaly. EXTREMITIES: There is no edema. NEUROLOGIC: Sleepy, arousable, follows simple command. MEDICATIONS: She is on ceftaroline 400 mg twice a day, Colace 100 mg twice a day, Coreg 3.125 mg twi ce a day, Diflucan 100 mg daily, Ecotrin 81 mg daily, Flonase 1 spray to each nostril daily, Lasix 40 mg twice a day, Lipitor 40 mg daily, Lovenox 40 mg subQ daily, Mobic 15 mg daily, Pepcid 40 mg at be dtime, Plavix 75 mg daily, prednisone 10 mg daily, Remeron 30 mg at bedtime, Robitussin 5 mL q. 4 tyron rs p.r.n., Singulair 10 mg daily, multivitamins daily, Xopenex so inhaled q. 6 hours. LABORATORY DATA: Reviewed. No new lab is available since yesterday. MICROBIOLOGY: Blood culture has been negative. IMPRESSION AND PLAN: Cardiac diastolic dysfunction, pulmonary hypertension, chronic lung disease, sl eep apnea syndrome, rheumatoid arthritis, on steroids presently. I spoke to nursing staff and reques lula if we can place hen CPAP while sleeping at daytime. Keep head at 45 degrees. Avoid sedatives. Gastric prophylaxis. Continue diuretics, bronchodilators, continue therapy. We will follow with you . Berenice Whitt MD cc: [id number] TT: 06/01/2016 15:29:30 Confirmation # [id number] Dictation # [id number] tn
[2016-06-02] MEDS: Enoxaparin 40 mg Syringe SC SCH (05:48)
[2016-06-02] MEDS: Levalbuterol 0.63 MG/3 ML Inhal Soln UD IH SCH ×3 (07:24→19:47)
[2016-06-02 08:02] LABS: ADD MANUAL DIFF? NO
[2016-06-02 08:08] LABS: BASO # 0.03 K/mm3 (0.0-2.0); BASO % 0.5 % (0.0-3.0); EOS # 0.2 (0.0-0.7); EOS % 3.1 % (1.5-5.0); GRAN # 2.48 (1.4-6.5); GRAN % 44.9 % (50.0-68.0); HEMATOCRIT 35.9 % (36.0-48.0); LYMPH # 2.5 (1.2-3.4); LYMPH % 44.8 % (22.0-35.0); MEAN CELL VOLUME 96.2 fL (80.0-105.0); MEAN CORPUSCULAR HEMOGLOBIN 33.5 pg (25.0-35.0); MEAN CORPUSCULAR HGB CONC 34.8 g/dl (31.0-37.0); MEAN PLATELET VOLUME 8.9 fl (7.0-11.0); MONO # 0.4 (0.1-0.6); MONO % 6.7 % (1.0-6.0); PLATELET COUNT 135 10^3/uL (120.0-450.0); WHITE BLOOD COUNT 5.5 10^3/ul (4.5-11.0)
[2016-06-02 09:07] LABS: CALCIUM 9.5 mg/dL (8.4-10.5); MAGNESIUM 2.3 mg/dL (1.7-2.2); PHOSPHOROUS 3.6 mg/dL (2.5-4.5)
[2016-06-02] MEDS: Fluticasone Nasal 50 mcg/Spray NS SCH (09:56)
[2016-06-02] MEDS: Multivitamin With Minerals Tab PO SCH (10:00)
[2016-06-02] MEDS: Silver Sulfadiazine 1% Cream (20 gm) TOP SCH ×2 (10:06→17:45)
--- NOTE | 2016-06-02 12:07 | PN ---
DATE: 06/01/2016 The patient seen in TCU, walking with a walker, steady, comfortable, no leg swelling and has no new c omplaint. Her arthritis pain is much better. PHYSICAL EXAMINATION: VITAL SIGNS: Temperature is 98.4, heart rate 70, blood pressure 146/77, respirations 18, saturation 100% on 3 liters. HEAD AND NECK: Normal. No JVD, no thyromegaly. CHEST: Clear. Good air entry. CARDIAC: First sound, second sound normal. ABDOMEN: Soft, nontender. EXTREMITIES: No edema. NEUROLOGIC: Normal. IMPRESSION AND PLAN: 1. Acute diastolic heart failure on top of chronic with pulmonary hypertension. Continue diuretics and will follow up clinically. We will repeat labs in the morning. 2. Obstructive sleep apnea. The patient does have a history of obstructive sleep apnea, compliance with CPAP unclear. We will get repeat overnight polysomnography by Dr. Whitt as outpatient with tit ration study to follow up on that. We will continue current management. Continue inhaled bronchodil ator Xopenex. 3. Coronary artery disease, history of multiple stents, plus cardiac catheterization was 05/27/2015. 4. History of renal insufficiency, stable. Creatinine within normal range. 5. Hypercholesterolemia, history of rheumatoid arthritis. Continue Mobic. Continue prednisone. Co ntinue Protonix, Lipitor. Continue gastrointestinal and deep vein thrombosis prophylaxis. 6. Generalized weakness, unsteadiness. The patient doing great on physical therapy. Continue physi pietro therapy as it is. We will follow up clinically. Forest England MD cc: [phone] TT: 06/02/2016 12:06:20 Confirmation # [id number] Dictation # [id number] en
--- NOTE | 2016-06-02 13:20 | PN ---
DATE: 06/02/2016 The patient is in room 321, bed 1. REASON FOR CONSULTATION AND FOLLOWUP: Congestive heart failure, coronary artery disease, history of PTCA. HISTORY OF PRESENT ILLNESS: The patient is an 80-year-old female with past medical history significa nt for coronary artery disease, status post multiple stents, status post pacemaker insertion. Admitt ed with swelling of legs and shortness of breath to medical floor, where she was treated medically, i mproved and she transferred to transitional care unit for deconditioning and physical therapy. The p atient lying flat in bed without any respiratory distress. She still has cough, but no chest pain, n o palpitation. PHYSICAL EXAMINATION: VITAL SIGNS: Blood pressure 117/83, respirations 18, pulse 62, temperature 97.7. HEAD: Normocephalic. EYES: Pupils normal. Conjunctivae normal. NOSE AND THROAT: Normal. NECK: JVP low. Carotid equal. THORAX: AP diameter normal. LUNGS: Clear. CARDIOVASCULAR: S1, S2. ABDOMEN: Soft, no tenderness, no organomegaly. EXTREMITIES: No clubbing, no cyanosis. Edema of legs has cleared. LABORATORY DATA: WBC 5.5, hemoglobin 12.5, hematocrit 35.9, platelets 135. Sodium 142, potassium 4. 0, BUN 40, creatinine 1.3, magnesium 2.3, random glucose 85, calcium 9.5, phosphorus 3.6. DIAGNOSES: Coronary artery disease, status post multiple stents, congestive heart failure which has improved, congestive heart failure related to fluid overload and left ventricular diastolic dysfuncti on, preserved left ventricular systolic function, mild aortic stenosis, status post permanent pacemak er insertion for sick sinus syndrome, hypertension, hyperlipidemia. PLAN: To continue to ambulate the patient. We will continue present medicine, Coreg 3.125 b.i.d., a spirin 81 mg p.o. daily, furosemide 40 p.o. b.i.d., Lipitor 40 daily, Lovenox 40 mg subQ daily, Mobic 15 mg p.o. daily, Plavix 75 mg p.o. daily, Singulair 10 mg at bedtime, prednisone 10 mg p.o. daily. We will continue present therapy. Mohammad Y Osman MD cc: [id number] TT: 06/02/2016 13:19:34 Confirmation # [id number] Dictation # [id number] en
--- NOTE | 2016-06-02 16:38 | CP.PCM.PN ---
Subjective - Date & Time of Evaluation Date of Evaluation: 06/02/16 Time of Evaluation: 07:50 - Subjective Subjective: Patient is comfortable, no pain in the legs, much improved, no fevers overnight. Objective - Vital Signs/Intake and Output Vital Signs (last 24 hours): Temp Pulse Resp BP Pulse Ox 97.7 F 62 18 117/83 97 06/02/16 10:00 06/02/16 10:00 06/02/16 10:00 06/02/16 10:00 06/02/16 10:00 Intake and Output: 06/02/16 06/02/16 06:59 18:59 Intake Total 420 Balance 420 - Medications Medications: Current Medications Aspirin (Ecotrin) 81 mg PO 0800 LYNDSEY PRN Reason: Protocol Last Admin: 06/02/16 08:07 Dose: 81 mg Atorvastatin Calcium (Lipitor) 40 mg PO DIN LYNDSEY PRN Reason: Protocol Last Admin: 06/01/16 17:27 Dose: 40 mg Carvedilol (Coreg) 3.125 mg PO 0800,1800 LYNDSEY PRN Reason: Protocol Last Admin: 06/02/16 08:05 Dose: 3.125 mg Clopidogrel Bisulfate (Plavix) 75 mg PO 0800 LYNDSEY PRN Reason: Protocol Last Admin: 06/02/16 08:08 Dose: 75 mg Docusate Sodium (Colace) 100 mg PO BID LYNDSEY PRN Reason: Protocol Last Admin: 06/02/16 09:54 Dose: 100 mg Enoxaparin Sodium (Lovenox) 40 mg SC 0600 LYNDSEY PRN Reason: Protocol Last Admin: 06/02/16 05:48 Dose: 40 mg Famotidine (Pepcid) 40 mg PO HS LYNDSEY PRN Reason: Protocol Last Admin: 06/01/16 21:29 Dose: 40 mg Fluconazole (Diflucan) 100 mg PO 0800 LYNDSEY PRN Reason: Protocol Last Admin: 06/02/16 08:06 Dose: 100 mg Fluticasone Propionate (Flonase) 1 actuation NS DAILY [facility] Last Admin: 06/02/16 09:56 Dose: 1 spr Furosemide (Lasix) 40 mg PO BID LYNDSEY PRN Reason: Protocol Last Admin: 06/02/16 09:57 Dose: 40 mg Guaifenesin/Dextromethorphan (Robitussin Dm) 5 ml PO Q4H PRN PRN Reason: Cough Levalbuterol HCl (Xopenex) 0.63 mg IH TIDRESP LYNDSEY PRN Reason: Protocol Last Admin: 06/02/16 13:03 Dose: 0.63 mg Levalbuterol HCl (Xopenex) 0.63 mg IH [id number] PRN; Protocol PRN Reason: Shortness of Breath Meloxicam (Mobic) 15 mg PO DAILY LYNDSEY PRN Reason: Protocol Last Admin: 06/02/16 10:00 Dose: 15 mg Mirtazapine (Remeron) 30 mg PO HS LYNDSEY PRN Reason: Protocol Last Admin: 06/01/16 21:29 Dose: 30 mg Montelukast Sodium (Singulair) 10 mg PO HS LYNDSEY Last Admin: 06/01/16 21:29 Dose: 10 mg Multivitamins/Minerals (Therapeutic-M Tab) 1 tab PO DAILY LYNDSEY PRN Reason: Protocol Last Admin: 06/02/16 10:00 Dose: 1 tab Prednisone (Prednisone Tab) 10 mg PO 0800 LYNDSEY PRN Reason: Protocol Stop: 06/04/16 10:00 Last Admin: 06/02/16 08:09 Dose: 10 mg Silver Sulfadiazine (Silvadene 1% 20 Gm) 0 ea TOP BID LYNDSEY PRN Reason: Protocol Last Admin: 06/02/16 10:06 Dose: 1 appl - Labs Labs: 06/02/16 07:45 06/02/16 07:45 - Constitutional Appears: Non-toxic, No Acute Distress - Head Exam Head Exam: NORMAL INSPECTION - ENT Exam ENT Exam: Mucous Membranes Moist - Neck Exam Neck Exam: absent: Lymphadenopathy, Meningismus - Respiratory Exam Respiratory Exam: Decreased Breath Sounds - Cardiovascular Exam Cardiovascular Exam: +S1, +S2 - GI/Abdominal Exam GI & Abdominal Exam: Soft. absent: Tenderness - Extremities Exam Additional comments: much improved swelling and erythema of the lower extremities Assessment and Plan - Assessment and Plan (Free Text) Plan: Assessment bilateral lower extremity cellulitis, clinically improved, in a patient with acute decompensated heart failure (which is also clinically improving) COPD GERD chronic CHF CAD HTN history of diverticulitis dyslipidemia sick sinus syndrome S/P pacemaker placement pulmonary HTN Plan will d/c antibiotics (teflaro) and observe will follow clinically
--- NOTE | 2016-06-03 02:25 | PN ---
DATE: 06/02/2016 REFERRING PHYSICIAN: Dr. England. SUBJECTIVE: The patient is lying in the bed, night was unremarkable. Tolerated CPAP for 4 hours, do ing well in therapy. No headaches, no rhinitis. Cough is better. No nausea, no vomiting, diarrhea. No leg pain or leg swelling. OBJECTIVE: GENERAL: No acute distress. VITAL SIGNS: Temperature is 98, heart rate is 70, respiratory rate is 20, blood pressure 110/65, pul se ox 98%. HEENT: Moist mucous membrane. Crowded airway. NECK: Supple. No JVD. LUNGS: Has a fair airflow with rhonchi. HEART: S1, S2. ABDOMEN: Soft, nontender. No organomegaly. EXTREMITIES: There is no edema. NEUROLOGIC: Awake, alert, follows simple command. MEDICATIONS: She is on Colace 100 mg twice a day, Coreg 3.125 mg twice a day, Diflucan 100 mg daily, Ecotrin 81 mg daily, Flonase 1 spray each nostril daily, Lasix 40 mg twice a day, Lipitor 40 mg jey y, Lovenox 40 mg subQ daily, Mobic 15 mcg p.o. daily, Pepcid 40 mg daily, Plavix 75 mg daily, prednis one 10 mg daily, Remeron 30 mg at bedtime, Robitussin-DM 5 mcg every 4 hours p.r.n., Singulair 10 mg at bedtime, multivitamins daily, Xopenex inhaler every 6 hours. LABORATORY DATA: Shows hemoglobin 12.5, hematocrit 35.9, WBC 5.5, platelet is 135. Sodium 142, pota ssium 4.0, chloride 102, bicarbonate 30, BUN 40, creatinine 1.3, glucose 85, calcium 9.5, magnesium 2 .3. MICROBIOLOGY: Blood culture has been negative. IMPRESSION AND PLAN: Cardiac diastolic dysfunction, pulmonary hypertension, chronic lung disease, sl eep apnea syndrome, rheumatoid arthritis. Pulmonary point of view, doing okay. Last night used CPAP for 4 hours. We will continue to encourage CPAP use. Keep head at 45 degree. Careful with sedatio n, aspiration precaution. Gastric prophylaxis. Fall precaution. Thank you and will follow with you . Berenice Whitt MD cc: [phone] TT: 06/03/2016 02:24:42 Confirmation # [id number] Dictation # [id number] mn
[2016-06-03] MEDS: Enoxaparin 40 mg Syringe SC SCH (05:56)
[2016-06-03] MEDS: Levalbuterol 0.63 MG/3 ML Inhal Soln UD IH SCH ×3 (07:19→20:37)
[2016-06-03] MEDS: Fluticasone Nasal 50 mcg/Spray NS SCH (10:38)
[2016-06-03] MEDS: Multivitamin With Minerals Tab PO SCH (10:39)
[2016-06-03] MEDS: Silver Sulfadiazine 1% Cream (20 gm) TOP SCH ×2 (10:39→18:02)
[2016-06-03 11:22] VITALS: RESP 18
--- NOTE | 2016-06-03 13:11 | PN ---
DATE: 06/03/2016 The patient is in room 321, bed 1. REASON FOR CONSULTATION AND FOLLOWUP: Congestive heart failure, coronary artery disease, history of PTCA. HISTORY OF PRESENT ILLNESS: The patient is an 80-year-old female with past medical history significa nt for coronary artery disease, status post multiple stents, status post pacemaker insertion. Admitt ed with swelling of legs and shortness of breath to medical floor, where she was treated medically. She is improved and transferred to transitional care unit for deconditioning and physical therapy. T he patient denies any chest pain or shortness of breath. She complains of cough and she is asymptoma tic during physical therapy. PHYSICAL EXAMINATION: VITAL SIGNS: Blood pressure 126/80, respirations 18, pulse 59, temperature 97.7. HEAD: Normocephalic. EYES: Pupils normal. Conjunctivae normal. NOSE AND THROAT: Normal. NECK: JVP low. Carotid equal. THORAX: AP diameter normal. LUNGS: Clear. CARDIOVASCULAR: S1, S2. ABDOMEN: Soft, no tenderness, no organomegaly. EXTREMITIES: No clubbing, no cyanosis, no edema. LABORATORIES: WBC 5.5, hemoglobin 12.5, hematocrit 35.9, platelets 135. Sodium 142, potassium 4.0, BUN 40, creatinine 1.3, glucose 85, calcium 9.5, phosphorus 3.6, magnesium 2.3. DIAGNOSES: Coronary artery disease, status post multiple stents, congestive heart failure, which has improved, congestive heart failure related to fluid overload and left ventricular diastolic dysfunct ion, preserved left ventricular systolic function, mild aortic stenosis, status post permanent pacema ker insertion for sick sinus syndrome, hypertension, hyperlipidemia. PLAN: To continue physical therapy and continue Coreg 3.125 b.i.d., aspirin 81 mg p.o. daily, furose mide 40 mg p.o. b.i.d., Lipitor 40 mg p.o. daily, Lovenox 40 mg subQ daily, Mobic 15 mg p.o. daily, P epcid 40 mg p.o. at bedtime, Plavix 75 mg daily, Remeron 30 mg p.o. at bedtime, Singulair 10 mg at be dtime, Xopenex hand nebulizer therapy, prednisone 10 mg daily. We will continue to follow with you. Berenice Osman MD cc: [id number] TT: 06/03/2016 13:10:50 Confirmation # [id number] Dictation # [id number] en
--- NOTE | 2016-06-03 17:01 | CP.PCM.PN ---
Subjective - Date & Time of Evaluation Date of Evaluation: 06/03/16 Time of Evaluation: 10:00 - Subjective Subjective: Comfortable, afebrile, not in distress, no leg pain. Objective - Vital Signs/Intake and Output Vital Signs (last 24 hours): Temp Pulse Resp BP Pulse Ox 97.5 F L 60 18 103/59 L 97 06/03/16 16:00 06/03/16 16:00 06/03/16 16:00 06/03/16 16:00 06/03/16 16:00 Intake and Output: 06/03/16 06/03/16 06:59 18:59 Intake Total 600 600 Balance 600 600 - Medications Medications: Current Medications Aspirin (Ecotrin) 81 mg PO 0800 LYNDSEY PRN Reason: Protocol Last Admin: 06/03/16 07:42 Dose: 81 mg Atorvastatin Calcium (Lipitor) 40 mg PO DIN LYNDSEY PRN Reason: Protocol Last Admin: 06/02/16 17:45 Dose: 40 mg Carvedilol (Coreg) 3.125 mg PO 0800,1800 LYNDSEY PRN Reason: Protocol Last Admin: 06/03/16 07:40 Dose: 3.125 mg Clopidogrel Bisulfate (Plavix) 75 mg PO 0800 LYNDSEY PRN Reason: Protocol Last Admin: 06/03/16 07:40 Dose: 75 mg Docusate Sodium (Colace) 100 mg PO BID LYNDSEY PRN Reason: Protocol Last Admin: 06/03/16 10:38 Dose: 100 mg Enoxaparin Sodium (Lovenox) 40 mg SC 0600 LYNDSEY PRN Reason: Protocol Last Admin: 06/03/16 05:56 Dose: 40 mg Famotidine (Pepcid) 40 mg PO HS LYNDSEY PRN Reason: Protocol Last Admin: 06/02/16 21:35 Dose: 40 mg Fluconazole (Diflucan) 100 mg PO 0800 LYNDSEY PRN Reason: Protocol Last Admin: 06/03/16 07:41 Dose: 100 mg Fluticasone Propionate (Flonase) 1 actuation NS DAILY [facility] Last Admin: 06/03/16 10:38 Dose: 1 spr Furosemide (Lasix) 40 mg PO BID LYNDSEY PRN Reason: Protocol Last Admin: 06/03/16 10:38 Dose: 40 mg Guaifenesin/Dextromethorphan (Robitussin Dm) 5 ml PO Q4H PRN PRN Reason: Cough Levalbuterol HCl (Xopenex) 0.63 mg IH TIDRESP LYNDSEY PRN Reason: Protocol Last Admin: 06/03/16 13:32 Dose: 0.63 mg Levalbuterol HCl (Xopenex) 0.63 mg IH [id number] PRN; Protocol PRN Reason: Shortness of Breath Meloxicam (Mobic) 15 mg PO DAILY LYNDSEY PRN Reason: Protocol Last Admin: 06/03/16 10:39 Dose: 15 mg Mirtazapine (Remeron) 30 mg PO HS LYNDSEY PRN Reason: Protocol Last Admin: 06/02/16 21:35 Dose: 30 mg Montelukast Sodium (Singulair) 10 mg PO HS LYNDSEY Last Admin: 06/02/16 21:35 Dose: 10 mg Multivitamins/Minerals (Therapeutic-M Tab) 1 tab PO DAILY LYNDSEY PRN Reason: Protocol Last Admin: 06/03/16 10:39 Dose: 1 tab Prednisone (Prednisone Tab) 10 mg PO 0800 LYNDSEY PRN Reason: Protocol Stop: 06/04/16 10:00 Last Admin: 06/03/16 07:42 Dose: 10 mg Silver Sulfadiazine (Silvadene 1% 20 Gm) 0 ea TOP BID LYNDSEY PRN Reason: Protocol Last Admin: 06/03/16 10:39 Dose: 1 appl - Labs Labs: 06/02/16 07:45 06/02/16 07:45 - Constitutional Appears: Non-toxic, No Acute Distress - Head Exam Head Exam: NORMAL INSPECTION - ENT Exam ENT Exam: Mucous Membranes Moist - Neck Exam Neck Exam: absent: Lymphadenopathy, Meningismus - Respiratory Exam Respiratory Exam: Decreased Breath Sounds - Cardiovascular Exam Cardiovascular Exam: +S1, +S2 - GI/Abdominal Exam GI & Abdominal Exam: Soft. absent: Tenderness Assessment and Plan - Assessment and Plan (Free Text) Plan: Assessment bilateral lower extremity cellulitis, clinically improved and S/P treatment, in a patient with acute decompensated heart failure (which is also clinically improving) COPD GERD chronic CHF CAD HTN history of diverticulitis dyslipidemia sick sinus syndrome S/P pacemaker placement pulmonary HTN Plan continue to monitor off antibiotics since she is at risk for hospital-acquired infections
--- NOTE | 2016-06-03 17:35 | PN ---
DATE: 06/03/2016 REFERRING PHYSICIAN: Dr. England. SUBJECTIVE: She is lying in the bed, sleepy, arousable. She tolerated BiPAP for a few hours last ni ght and feels better, more awake and alert. Decreased cough. No nausea, no vomiting or diarrhea. N o leg pain or leg swelling. OBJECTIVE: GENERAL: No acute distress. VITAL SIGNS: Temperature is 98, heart rate is 60, respiratory rate is 20, blood pressure 103/59 and pulse ox 97% on room air. HEENT: Dry mucous membrane. Crowded airway. NECK: Supple. No JVD. LUNGS: Have fair airflow with a few rhonchi. HEART: S1, S2. ABDOMEN: Soft, nontender. No organomegaly. EXTREMITIES: There is no edema. NEUROLOGIC: Awake, alert, follows simple commands. MEDICATIONS: She is on Colace 100 mg twice a day, Coreg 3.125 mg twice a day, Diflucan 100 mg daily, Ecotrin 81 mg daily, Flonase 1 spray each nostril daily, Lasix 40 mg twice a day, Lipitor 40 mg jey y, Lovenox 40 mg daily, Mobic 15 mg p.o. daily, Pepcid 40 mg at bedtime, Plavix 75 mg daily, predniso ne 10 mg daily, Remeron 30 mg at bedtime, Robitussin-DM 5 mL q. 4 hours p.r.n., Singulair 10 mg daily , multivitamins daily, Xopenex inhaled q. 6 hours. LABORATORY DATA: Reviewed. No new lab is available since yesterday. MICROBIOLOGY: Blood culture has been negative. IMPRESSION AND PLAN: Cardiac diastolic dysfunction, pulmonary hypertension, chronic lung disease, sl eep apnea syndrome, rheumatoid arthritis. Will continue to encourage CPAP use. Keep head elevated a t 45 degrees. Gastric prophylaxis. Deep venous thrombosis prophylaxis. Bronchodilator. Continue t herapy. Thank you, and will follow with you. Berenice Whitt MD cc: [id number] TT: 06/03/2016 17:34:11 Confirmation # [id number] Dictation # [id number] mn
[2016-06-04] MEDS: Enoxaparin 40 mg Syringe SC SCH (05:59)
[2016-06-04] MEDS: Levalbuterol 0.63 MG/3 ML Inhal Soln UD IH SCH ×3 (07:23→21:17)
--- NOTE | 2016-06-04 10:41 | PN ---
DATE: 06/03/2016 The patient had sitting in the bed next to her boyfriend. She is talking, in no distress. No new complaint. No respiratory distress. The patient tried the CPAP. She then complained of joint pains and difficulty getting out of bed to chair because of arthritis in her back and her neck and hands. PHYSICAL EXAMINATION: VITAL SIGNS: Temperature 97.7, heart rate 59, blood pressure 126/80, respirations 18, saturation 98% on room air. HEAD AND NECK: Normal. No JVD, no thyromegaly. CHEST: Clear. Good air entry. CARDIAC: First and second sounds are normal. ABDOMEN: Soft, nontender. EXTREMITIES: No edema. NEUROLOGIC: Normal. MUSCULOSKELETAL: As before. The patient does have decreased range of motions from her neck due to pain, also decreased range of motion of her back flexion, extension and lateral flexion due associated pain symptoms. The patient has difficulty getting out of bed to chair due to her pain in her lower back and neck. IMPRESSION AND PLAN: 1. Severe osteoarthritis of with rheumatoid arthritis. 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 I explained to her about the methotrexate. She will try Arava for her underlying rheumatoid arthritis and monitor her blood count. 2. History of transient thrombocytopenia due to methotrexate. The patient advised not to use it, this information was given to her 8th grade mathematics teacher. 3. Acute congestive heart failure, diastolic on top of chronic diastolic. The patient does have underlying coronary artery disease.patient has orthopnea need to keep head more than 30 degree up 4. Pulmonary hypertension, probably secondary to left-sided diastolic heart failure, chronic or underlying hypoxia due to underlying obstructive sleep apnea..patient advised to keep the head of the bed more than 30 degree 5. Hypertension, hypercholesterolemia, coronary artery disease. PLAN: Continue current treatment. Continue diuretics. Follow up clinically. The patient seems stable and she will follow up with sleep study as outpatient as well as with 8th grade mathematics teacher as outpatient. CURRENT MEDICATIONS: Colace 100 mg b.i.d., Coreg 3.125 mg twice a day, Diflucan 100 mg once a day, aspirin 81 mg 1 a day, Flonase, Lasix 40 b.i.d., Lipitor 40 p.o. at bedtime, Lovenox 40 subQ daily, Mobic 50 mg p.o. daily, Pepcid 40 mg once a day, Plavix 75 mg once a day, Remeron 30 mg p.o. at bedtime , Robitussin-DM, Silvadene cream to lower extremity, Singulair, multivitamins, _ ___ and Xopenex nebulizer treatment. The patient seems to be doing very well other than her significant symptoms of arthritis and seems she needs a hospital bed, which she will alleviate some very suffering. Forest England MD cc: 223 TT: 06/04/2016 10:40:43 Confirmation # [id number] Dictation # [id number] jn MTDD
--- NOTE | 2016-06-04 10:46 | PN ---
DATE: 06/02/2016 The patient complained of pain in her joints in her shoulders, hands, neck and back. She was on steroids plus Mobic, but seems not helping and PERCOCET SHE IS ALLERGIC. Currently, she has no respiratory distress. She tried the BiPAP machine at night for a few hours. Also, the patient walked with a walker. PHYSICAL EXAMINATION: VITAL SIGNS: Temperature 97.3, heart rate 70, blood pressure 104/62, respirations 18, saturating 98%. HEAD AND NECK: Normal. There is decreased range of motion due to pain. There is tenderness in C-spine and in both shoulder supraspinatus areas. CHEST: Clear, good air entry. CARDIAC: First sound, second sound normal. ABDOMEN: Soft, nontender. EXTREMITIES: No edema. NEUROLOGIC: She moves all extremities. MUSCULOSKELETAL: She is tender in the C-spine and lumbosacral area, both wrists , hands and decreased range of motion in both shoulders. The patient has difficulty with ambulation and getting out of bed to chair also. LABORATORY DATA: As follows: White count 5.5, hemoglobin 12.5, hematocrit 35.9 , platelets 135. Chemistry shows sodium 142, potassium 4, chloride 102, bicarb 30, BUN 40, creatinine 1.3. Magnesium 2.3. IMPRESSION AND PLAN: 1. Acute diastolic heart failure on top of chronic, mild hypertension, mild pulmonary hypertension, possibility of underlying right-sided failure secondary to left-sided diastolic failure.patient advised to keep the head of the bed more than 30 degree for dyspnea relieve 2. Chronic airway disease. She has asthma, reflux-induced bronchospasm and hoarseness. She also has obstructive sleep apnea in the past. The patient will go under sleep study for evaluation of her underlying sleep apnea as an etiology of her pulmonary hypertension. 3. Rheumatoid arthritis. We will call her doctor about her medications. Methotrexate, she did have thrombocytopenia related to that medication, and she was advised to be stopped. 4. Coronary artery disease, hypertension, hypercholesterolemia, history of renal insufficiency, transient; acid reflux. 5. Continue current treatment. 6. Gait disorder. The patient has significant musculoskeletal symptoms with difficulty ambulation, especially getting out of bed to bedside. She needs some assistance, like electric chair. Electric bed would add additional help to get her out of bed and help her move around from bed to chair. The patient does have chronic osteoarthritis of the lumbosacral area with decreased range of motion, also same in the neck. The patient also has a history of bilateral knee replacements. The patient has a history of generalized osteoarthritis as well as rheumatoid arthritis. She also has severe neck disk disease. Continue current treatment. Forest England MD cc: 223 TT: 06/04/2016 10:45:22 Confirmation # [id number] Dictation # [id number] tn MTDD
[2016-06-04] MEDS: guaiFENesin DM 100 mg-10 mg/5 ml UD PO PRN ×2 (11:19→17:30)
[2016-06-04] MEDS: Silver Sulfadiazine 1% Cream (20 gm) TOP SCH ×2 (11:20→17:32)
[2016-06-04] MEDS: Fluticasone Nasal 50 mcg/Spray NS SCH (11:20)
[2016-06-04] MEDS: Multivitamin With Minerals Tab PO SCH (11:20)
--- NOTE | 2016-06-04 13:07 | PN ---
DATE: 06/04/2016 The patient is in bed in no acute distress, nontoxic. PHYSICAL EXAMINATION: VITAL SIGNS: Temperature is 98, blood pressure is 113/60, respiratory rate of 16. HEENT: Unremarkable. NECK: Supple. LUNGS: Have decreased breath sounds. HEART: Normal S1, S2. ABDOMEN: Soft, nontender. LABORATORY DATA: Reveals a white count of 5.5, hemoglobin of 12, platelets of 135. Chemistries reve al the BUN of 40, creatinine of 1.3. ASSESSMENT AND PLAN: This is an 80-year-old with bilateral lower extremity cellulitis, clinically im proved, status post treatment in patient with acute decompensated heart failure with chronic obstruct susan lung disease, gastroesophageal reflux disease, chronic congestive heart failure, coronary artery disease, hypertension, history of diverticulitis, dyslipidemia. Currently off of antibiotics, afebri le. The patient is at risk for developing nosocomial infections. Gino Baer MD cc: [id number] TT: 06/04/2016 13:07:01 Confirmation # [id number] Dictation # [id number] grupo
--- NOTE | 2016-06-04 21:27 | PN ---
DATE: 06/04/2016 REFERRING PHYSICIAN: Dr. England. SUBJECTIVE: She is lying in the bed, feels much better. Tolerated BiPAP for a few hours last night. No headache, no rhinitis. Cough is better. No nausea, no vomiting or diarrhea. No leg pain or le g swelling. OBJECTIVE: GENERAL: No acute distress. VITAL SIGNS: Temperature is 98, heart rate is 71, respiratory rate is 20, blood pressure 113/65, pul se ox 100% on BiPAP in the morning. HEENT: Dry mucous membranes. NECK: Supple, no JVD. LUNGS: Have a fair airflow with few rhonchi. HEART: S1, S2. ABDOMEN: Soft, nontender. No organomegaly. EXTREMITIES: There is no edema. NEUROLOGIC: Awake, alert, follows simple command. MEDICATIONS: She is on Colace 100 mg twice a day, Coreg 3.125 mg twice a day, Diflucan 100 mg daily, Ecotrin 81 mg daily, Flonase 1 spray each daily, Lasix 40 mg twice a day, Lipitor 40 mg daily, Loven ox 40 mg subQ daily, Mobic 15 mg daily, Pepcid 40 mg daily, Plavix 75 mg daily, Remeron 30 mg at bedt alfredo, Robitussin-DM 5 mL q.4 hours p.r.n., Singulair 10 mg at bedtime therapeutic, multivitamins 1 tab daily, Xopenex inhaler q.6 hours. LABORATORY DATA: Reviewed. No new lab is available. Microbiology: Blood cultures have been negati ve. IMPRESSION AND PLAN: Cardiac diastolic dysfunction, pulmonary hypertension, chronic lung disease, sl eep apnea syndrome, rheumatoid arthritis. Pulmonary point of view, doing well. Will continue to enc ourage CPAP use. Keep head 45 degrees. Gastric prophylaxis. Deep venous thrombosis prophylaxis. B ronchodilators. Continue therapy. Will not need outpatient split sleep study to qualify her s leep apnea or CPAP for her. Will follow with you. Berenice Whitt MD cc: [id number] TT: 06/04/2016 21:26:26 Confirmation # [id number] Dictation # [id number] mn
[2016-06-05] MEDS: Enoxaparin 40 mg Syringe SC SCH (05:37)
[2016-06-05] MEDS: Levalbuterol 0.63 MG/3 ML Inhal Soln UD IH SCH ×3 (08:45→20:26)
[2016-06-05] MEDS: guaiFENesin DM 100 mg-10 mg/5 ml UD PO PRN ×3 (08:51→17:51)
[2016-06-05] MEDS: Silver Sulfadiazine 1% Cream (20 gm) TOP SCH ×2 (10:45→17:50)
[2016-06-05] MEDS: Multivitamin With Minerals Tab PO SCH (10:45)
[2016-06-05] MEDS: Fluticasone Nasal 50 mcg/Spray NS SCH (10:46)
--- NOTE | 2016-06-05 10:52 | PN ---
DATE: 06/05/2016 The patient is in bed, in no acute distress. He was seen earlier this morning in room 321. PHYSICAL EXAMINATION: VITAL SIGNS: Temperature is 97, blood pressure is 120/70, respiratory rate of 18. HEENT: Unremarkable. NECK: Supple. LUNGS: Have decreased breath sounds. HEART: Normal S1, S2. ABDOMEN: Soft, nontender. LABORATORY EXAMINATION: Reveals a white count of 5.5, hemoglobin of 12, platelets of 135. Chemistri es reveals the BUN of 40, creatinine of 1.3. Microbiology is noted. The blood cultures are negative . Review of the orders reveals the patient to be off of antibiotics. Dr. Whitt's note from yesterday is reviewed. ASSESSMENT AND PLAN: An 80-year-old with bilateral lower extremity cellulitis, status post treatment in patient with acute decompensated heart failure and chronic obstructive lung disease and gastroeso phageal reflux disease and chronic congestive heart failure, coronary artery disease, hypertension, h istory of diverticulitis, dyslipidemia. Currently off of antibiotics. The patient is at risk for de veloping nosocomial infections. Gino Baer MD cc: 350 TT: 06/05/2016 10:52:02 Confirmation # [id number] Dictation # [id number] en
--- NOTE | 2016-06-05 22:26 | PN ---
DATE: 06/05/2016 REFERRING PHYSICIAN: Dr. England. SUBJECTIVE: She has come back from shower with the help of nursing staff, night was unremarkable. F or a few hours used the BiPAP and feels better, willing to undergo sleep study and use CPAP. No head ache, no rhinitis, no nausea, no vomiting, no diarrhea. No leg pain or leg swelling. OBJECTIVE: GENERAL: In no acute distress. VITAL SIGNS: Temperature is 98, heart rate is 97, respiratory rate is 20, blood pressure 93/70, puls e ox 97% on room air. HEENT: Moist mucous membrane. Crowded airway. NECK: Supple. No JVD. Nasal mucosa mildly erythematous. LUNGS: Has a fair airflow with few rhonchi. HEART: S1, S2. ABDOMEN: Soft, nontender. No organomegaly. EXTREMITIES: There is no edema. NEUROLOGIC: Awake, alert, follows simple command. MEDICATIONS: She is on Colace 100 mg twice a day, Coreg 3.125 mg twice a day, Diflucan 100 mg daily, Ecotrin 81 mg daily, Flonase 1 spray each nostril daily, Lasix 40 mg twice a day, Lipitor 40 mg jey y, Mobic 15 mg daily, Pepcid 40 mg daily, Plavix 75 mg daily, Remeron 30 mg at bedtime, Robitussin-DM 5 mL q.4 hours p.r.n., Singulair 10 mg daily, multivitamins daily, Xopenex inhaled q.6 hours, Xopene x q.6 hours p.r.n. LABORATORY DATA: Reviewed. No new lab is available since yesterday. Microbiology: Blood cultures have been negative. IMPRESSION AND PLAN: Cardiac diastolic dysfunction, pulmonary hypertension, chronic lung disease, sl eep apnea syndrome, rheumatoid arthritis. Pulmonary point of view, she is doing better. I spoke to the patient's daughter at bedside. All the questions answered. Encouraged her to continue to use CP AP. We will schedule her a sleep study as an outpatient CPAP. Continue p.o. and inhaled bronc hodilator. Gastric prophylaxis. Diuretics. Fall precautions. Thank you and will follow with you. Berenice Whitt MD cc: 336 TT: 06/05/2016 22:25:34 Confirmation # [id number] Dictation # [id number] mn
[2016-06-06 06:52] LABS: CALCIUM 9.3 mg/dL (8.4-10.5); MAGNESIUM 2.5 mg/dL (1.7-2.2)
[2016-06-06] MEDS: Levalbuterol 0.63 MG/3 ML Inhal Soln UD IH SCH ×2 (07:36→13:03)
--- NOTE | 2016-06-06 08:26 | PN ---
DATE: 06/04/2016 The patient is stable clinically and still complains of joint pains, neck and whole spine pain. She has no chest pain, no shortness of breath. Leg swelling is better. The patient is also supposed to be discharged home, but she still feels she needs more physical therapy. PHYSICAL EXAMINATION: VITAL SIGNS: Temperature 98, heart rate 92, blood pressure 130/62, respirations 20. The patient is getting BiPAP on and off. HEAD AND NECK: Normal. No JVD, no thyromegaly. CHEST: Clear, good air entry. CARDIAC: First sound and second sound normal. ABDOMEN: Soft, obese, nontender. EXTREMITIES: No edema. NEUROLOGIC: Normal. LABORATORY DATA: The patient had blood cultures x 2 before and they were negative. IMPRESSION: Generalized weakness, gait instability, chronic osteoarthritis, chronic joint pain and back pain, history of rheumatoid arthritis. PLAN: 1. Continue current therapy. The patient getting Mobic and steroids and will continue physical therapy. 2. Acute diastolic heart failure on top of chronic diastolic heart failure with mild pulmonary hypertension. Continue diuretics and BiPAP at night. Also , the patient is getting her current medications for coronary artery disease. She is getting Lipitor. She is getting Plavix and also getting Coreg 3.125 b.i.d.advised to keep the head of the bed more than 30 degree 3. Coronary artery disease, hypercholesterolemia, hypertension, chronic obstructive pulmonary disease, acid reflux, history of reflux, laryngitis. Continue current therapy. CURRENT MEDICATIONS: Coreg 3.125 mg b.i.d., Diflucan 100 mg p.o. daily, Ecotrin 81 mg daily, Flonase w spray each nostril once a day, Lipitor 40 mg once a day, Mobic 50 mg p.o. daily, Pepcid 40 mg daily, Plavix 75 mg daily, Remeron 30 mg daily, Singulair and Xopenex q.i.d. nebulizer, Silvadene to both lower extremities. Continue current therapy, followup clinically. Forest England MD cc: 223 TT: 06/05/2016 22:02:13 Confirmation # [id number] Dictation # [id number] [place] BAER
[2016-06-06] MEDS: Multivitamin With Minerals Tab PO SCH (10:00)
[2016-06-06] MEDS: Fluticasone Nasal 50 mcg/Spray NS SCH (10:00)
[2016-06-06] MEDS: Silver Sulfadiazine 1% Cream (20 gm) TOP SCH ×2 (10:01→17:33)
[2016-06-06 11:13] VITALS: BP 132/76; PULSE 80; TEMP 97.8; O2SAT 94
[2016-06-06] MEDS: guaiFENesin DM 100 mg-10 mg/5 ml UD PO PRN (17:37)
--- NOTE | 2016-06-07 07:24 | PN ---
DATE: 06/06/2016 REASON FOR CONSULTATION AND FOLLOWUP: Congestive heart failure, coronary artery disease, history of PTCA. BRIEF CLINICAL HISTORY: This is an 80-year-old female with past medical history significant for barbara nary artery disease status post multiple stents, status post pacemaker, admitted with swelling of the leg and shortness of breath. The patient was treated medically, improved, and now in [facility] unit for continuity of care. Denies any chest pain, shortness of breath, any palpitation. Cough also improved. PHYSICAL EXAMINATION: VITAL SIGNS: Temperature afebrile, heart rate 80, blood pressure 120/80. HEENT: PERRLA. Extraocular muscles intact. NECK: Supple. No carotid bruits. No thyromegaly. CHEST: Clear to auscultation. HEART: S1, S2 regular. ABDOMEN: Soft. EXTREMITIES: Clubbing, cyanosis negative. BLOOD WORKUP: On 06/02/2016: WBC 5.5, hemoglobin 12.5, hematocrit 35.9, platelet count 135. Chemis try as of 06/06/2016: Sodium 140, potassium 5, chloride 99, carbon dioxide 32, anion gap of 14, BUN 65, creatinine 1.6. IMPRESSION: Prerenal azotemia; hyperkalemia, borderline; coronary artery disease, status post percut aneous transluminal coronary angioplasty; decompensated congestive heart failure, acute on chronic di astolic dysfunction; paroxysmal atrial fibrillation, coronary artery disease, now patient is in ethan l sinus, status post pacemaker, sick sinus syndrome; hypertension, hyperlipidemia. RECOMMENDATION: Ambulate. Continue Lasix. Avoid supplement of potassium because potassium is going up. Continue Coreg, continue aspirin, continue atorvastatin, continue Plavix, continue guaifenesin. Hold Lasix. Will follow with you. Thank you, Dr. England, for providing the opportunity in taking care of the patient. Will repeat the blood workup within a day or 2. Berenice Maravilla MD cc: [id number] TT: 06/07/2016 07:24:01 Confirmation # [id number] Dictation # [id number] mn
--- NOTE | 2016-06-07 08:29 | PN ---
DATE: 06/06/2016 REFERRING PHYSICIAN: Dr. England. SUBJECTIVE: The patient is lying in the bed, head at 45 degrees. Could not use CPAP last night. No headaches, no rhinitis. No nausea, no vomiting or diarrhea. No leg pain or leg swelling. OBJECTIVE: GENERAL: No acute distress. VITAL SIGNS: Temp is 98, heart is 80, respiratory rate is 20, blood pressure 132/76, pulse ox 94% on 2 liter nasal cannula. HEENT: Moist mucous membranes. Crowded airway. Mallampati score is 4. NECK: Supple. No JVD. LUNGS: Have a fair airflow with few rhonchi. HEART: S1 and S2. ABDOMEN: Soft, nontender. No organomegaly. EXTREMITIES: There is no edema. NEUROLOGIC: Awake, alert, follows simple command. MEDICATIONS: The patient is on Colace 100 mg twice a day, Coreg 3.125 mg twice a day, Ecotrin 81 mg daily, Flonase 1 spray in each nostril daily, Lipitor 40 mg daily, Pepcid 40 mg daily, Plavix 75 mg d aily, Remeron 30 mg at bedtime, Robitussin-DM 5 mL q. 4 hours p.r.n., Singulair 10 mg daily, multivi tamins daily, Xopenex inhaled q. 6 hours. LABORATORY DATA: Reviewed. Sodium 140, potassium 4.0, chloride 99, bicarbonate 32, BUN 65, creatini ne 1.6, calcium is 9.3, magnesium 2.5. Microbiology: Blood cultures have been negative. IMPRESSION AND PLAN: Cardiac diastolic dysfunction, pulmonary hypertension, chronic lung disease, sl eep apnea syndrome, rheumatoid arthritis. Pulmonary point of view, she is doing okay. Will continue and encourage BiPAP use, keep head elevated at 45 degrees, bronchodilator. May decrease her Lasix t o 20 mg twice a day. Follow up electrolytes closely. Fall precaution. Thank you and will follow with you. Berenice Whitt MD cc: 336 TT: 06/07/2016 08:28:27 Confirmation # [id number] Dictation # [id number] mn
--- NOTE | 2016-06-07 22:18 | DS ---
The patient clinically stable. She is still clinically stable. She is feeling better. Still had so me neck pain and joint pain, but is better. She has no chest pain, no short of breath at this time e xcept with exertions. Leg edema is better and clinically seems better, and she will be discharged ho tx. PHYSICAL EXAMINATION ON 06/06/2016: Temperature 97.8, heart rate 80, blood pressure 132/76, respiration 18, saturation 94%. HEAD AND NECK EXAMINATION: Normal. No JVD, no thyromegaly. CHEST EXAMINATION: Clear, good entry. CARDIAC: First sound, second sound normal. ABDOMEN: Soft, obese, nontender. EXTREMITIES: No edema. NEUROLOGICALLY: She moves all extremities. She is alert, awake, oriented x 3. She is normal. LABORATORY: Today, her sodium 140, potassium 5, chloride 99, bicarbonate 32, BUN 65, creatinine 1.6, blood sugar 93, magnesium 2.5. The patient seemed cardiologists and seems stable. DISCHARGE DIAGNOSES: 1. Acute congestive heart failure, acute diastolic on top of chronic diastolic. Due to her creatinin e and high BUN and evaluation of her edema, will hold off on Lasix for a couple of days, then would r esume Lasix once a day, and will see her in the office and repeat her basic metabolic panel. Veronica stahl also will hold off on that day and will continue current therapy. The patient also advised to ophelia orozcoin her head elevated more than 30 degrees for symptomatic relief and for her present symptoms due to her underlying cardiopulmonary disease, congestive heart failure, chronic obstructive pulmonary di sease, and obstructive sleep apnea. Will continue followup on that. 2. Obstructive sleep apnea. Most likely patient will benefit continued BiPAP. She will get an outpa tient sleep study and I will follow up on that. 3. Chronic obstructive pulmonary disease. Continue inhaled bronchodilators. The patient was given n ebulizer treatment and she was given Xopenex. 4. Acute renal insufficiency, probably diuretic related. Hold off on diuresis for a couple of days a nd resume Lasix; instead of twice a day will give once a day. 5. Chronic renal disease. 6. Hypercholesterolemia. 7. Hypertension. 8. Rheumatoid arthritis, osteoarthritis. Continue Lipitor, aspirin, Plavix. Will follow up clinically. The patient[facility] and all her meds was given, which she can . The patient also advised to fol low up with the rheumatology to follow up as outpatient. MEDICATIONS ON DISCHARGE: As follows: Remeron 30 mg at night, Xopenex nebulizer treatment, Lasix. She will start it after 2 days, 40 mg once a day. Pepcid 40 at bedtime, Colace 100 b.i.d. Plavix 75 mg p.o. once a day, Coreg 3.125 mg b.i.d., Cepacol p.r.n., Lipitor 40 once a day, Ecotrin 81 mg once a day, Tylenol 650 one q. 4 hours p.r.n. The patient advised not to take any Motrin, YAHIR Sutherland. Forest England MD cc: 223 TT: 06/07/2016 22:17:24 jn
== END 2016-06-06 19:00 | disposition home or self-care (01) | DRG 281 ==
LOC: TRCU 16:02
PROVIDERS: ADMIT Internal Medicine; ATTEND Internal Medicine
PROC: F07Z9FZ Gait Training/Functional Ambulation Treatment using Assistive, Adaptive, Supportive or Protective Equipment (ICD-10-PCS; principal; 2016-05-27)
PROC: F07M6ZZ Therapeutic Exercise Treatment of Musculoskeletal System - Whole Body (ICD-10-PCS; 2016-05-27)
PROC: F08Z2ZZ Grooming/Personal Hygiene Treatment (ICD-10-PCS; 2016-05-27)
PROC: F08Z1ZZ Dressing Techniques Treatment (ICD-10-PCS; 2016-05-27)
PROC: F08Z0ZZ Bathing/Showering Techniques Treatment (ICD-10-PCS; 2016-05-27)
DX: I50.33 Acute on chronic diastolic (congestive) heart failure (principal); I21.3 ST elevation (STEMI) myocardial infarction of unspecified site; I13.0 Hypertensive heart and chronic kidney disease with heart failure and stage 1 through stage 4 chronic kidney disease, or unspecified chronic kidney disease; B37.89 Other sites of candidiasis; D69.59 Other secondary thrombocytopenia; I27.2 Other secondary pulmonary hypertension; K57.92 Diverticulitis of intestine, part unspecified, without perforation or abscess without bleeding; L03.115 Cellulitis of right lower limb; L03.116 Cellulitis of left lower limb; E87.5 Hyperkalemia; I48.0 Paroxysmal atrial fibrillation; G47.33 Obstructive sleep apnea (adult) (pediatric); E66.9 Obesity, unspecified; E78.00 Pure hypercholesterolemia, unspecified; E78.5 Hyperlipidemia, unspecified; G89.29 Other chronic pain; H26.9 Unspecified cataract; M06.9 Rheumatoid arthritis, unspecified; M15.9 Polyosteoarthritis, unspecified; I25.10 Atherosclerotic heart disease of native coronary artery without angina pectoris; I25.2 Old myocardial infarction; I35.0 Nonrheumatic aortic (valve) stenosis; J44.9 Chronic obstructive pulmonary disease, unspecified; J45.909 Unspecified asthma, uncomplicated; K21.9 Gastro-esophageal reflux disease without esophagitis; N18.9 Chronic kidney disease, unspecified; N28.1 Cyst of kidney, acquired; R09.02 Hypoxemia; T50.2X5A Adverse effect of carbonic-anhydrase inhibitors, benzothiadiazides and other diuretics, initial encounter; Z79.02 Long term (current) use of antithrombotics/antiplatelets; Z91.19 Patient's noncompliance with other medical treatment and regimen; Z95.0 Presence of cardiac pacemaker; Z95.5 Presence of coronary angioplasty implant and graft; Z96.653 Presence of artificial knee joint, bilateral; Z88.1 Allergy status to other antibiotic agents; Z88.5 Allergy status to narcotic agent; Z88.8 Allergy status to other drugs, medicaments and biological substances; R41.3 Other amnesia; I08.3 Combined rheumatic disorders of mitral, aortic and tricuspid valves; J04.0 Acute laryngitis

== ENCOUNTER 2016-06-14 14:30 | Inpatient (IN) | payer MEDICARE ==
--- NOTE | 2016-06-14 16:19 | RAD ---
PROCEDURE: Right Hip and pelvis Radiographs. HISTORY: hip pain COMPARISON: None. FINDINGS: BONES: Normal. No fracture. JOINTS: Normal. SOFT TISSUES: Normal. OTHER FINDINGS: None. IMPRESSION: Negative study
--- NOTE | 2016-06-14 16:21 | RAD ---
PROCEDURE: Radiographs of the right humerus. HISTORY: fall COMPARISON: None. FINDINGS: BONES: Normal. No fracture or focal lesion. SOFT TISSUES: Normal. OTHER FINDINGS: None. IMPRESSION: Normal radiographs of right humerus.
--- NOTE | 2016-06-14 16:24 | RAD ---
PROCEDURE: Radiographs of the Right Shoulder HISTORY: fall COMPARISON: No prior. FINDINGS: BONES: Normal. No fracture. JOINTS: Normal. Glenohumeral and acromioclavicular joints preserved. No osteoarthritis. SOFT TISSUES: Normal. OTHER FINDINGS: Calcified fragments are seen along the inferior border of the humeral head and adjacent to the coracoid. These may represent loose bodies within the joint IMPRESSION: Probable loose bodies
--- NOTE | 2016-06-14 16:27 | RAD ---
PROCEDURE: Right knee three views HISTORY: knee pain COMPARISON: TECHNIQUE: Three views including patella FINDINGS: There is right the knee prosthesis with no fracture or loosening. The patella is unremarkable IMPRESSION: Negative study
--- NOTE | 2016-06-14 16:40 | CT ---
PROCEDURE: CT HEAD WITHOUT CONTRAST. HISTORY: fall/ COMPARISON: 04/19/2016. TECHNIQUE: Axial computed tomography images were obtained through the head/brain without intravenous contrast. Radiation dose: Total exam DLP = 774.23 mGy-cm. This CT exam was performed using one or more of the following dose reduction techniques: Automated exposure control, adjustment of the mA and/or kV according to patient size, and/or use of iterative reconstruction technique. FINDINGS: HEMORRHAGE: No intracranial hemorrhage. BRAIN: No mass effect or edema. Age related senescent change VENTRICLES: Unremarkable. No hydrocephalus. CALVARIUM: Unremarkable. PARANASAL SINUSES: Unremarkable as visualized. No significant inflammatory changes. MASTOID AIR CELLS: Unremarkable as visualized. No inflammatory changes. OTHER FINDINGS: None. IMPRESSION: No acute intracranial abnormalities. No significant findings to account for the clinical presentation. No significant interval change compared to the prior examination(s).
[2016-06-14 17:02] LABS: ADD MANUAL DIFF? NO
[2016-06-14 17:05] LABS: BASO # 0.01 K/mm3 (0.0-2.0); BASO % 0.2 % (0.0-3.0); EOS # 0.1 (0.0-0.7); EOS % 1.8 % (1.5-5.0); GRAN # 4.33 (1.4-6.5); GRAN % 72.6 % (50.0-68.0); HEMATOCRIT 38.6 % (36.0-48.0); LYMPH # 1.1 (1.2-3.4); LYMPH % 18.4 % (22.0-35.0); MEAN CELL VOLUME 92.8 fL (80.0-105.0); MEAN CORPUSCULAR HEMOGLOBIN 31.5 pg (25.0-35.0); MEAN CORPUSCULAR HGB CONC 33.9 g/dl (31.0-37.0); MONO # 0.4 (0.1-0.6); PLATELET COUNT 96 10^3/uL (120.0-450.0); RED CELL DISTRIBUTION WIDTH 16.2 % (11.5-14.5)
[2016-06-14 17:22] LABS: ALB/GLOB RATIO 1.2 (1.1-1.8); BILIRUBIN,TOTAL 1.5 mg/dL (0.2-1.3); CALCIUM 9.8 mg/dL (8.4-10.5); POTASSIUM 4.8 mmol/L (3.6-5.0); TOTAL PROTEIN 7.9 g/dL (5.8-8.3)
[2016-06-14 17:34] LABS: TROPONIN I 0.08 ng/mL
--- NOTE | 2016-06-14 18:34 | RAD ---
PROCEDURE: Chest portable HISTORY: fall COMPARISON: 05/22/2016. TECHNIQUE: Technique: Single view portable semi erect @ 16:54. FINDINGS: No active pulmonary disease. No pulmonary nodules, masses or infiltrates. No evidence of acute, significant cardiovascular disease. No significant pleural, osseous or subdiaphragmatic abnormalities. Position/ configuration of pacemaker^ IMPRESSION: No active disease. No acute/significant interval changes.
--- NOTE | 2016-06-14 20:44 | ED PDOC ---
Arrival/HPI - General Chief Complaint: Trauma Time Seen by Provider: 06/14/16 15:11 Historian: Patient - History of Present Illness Narrative History of Present Illness (Text): 06/14/16 20:43 80-year-old female presents today status post fall yesterday. Patient states she was walking with her walker felt dizzy and thinks she may have tripped and fallen to the ground. Patient states she landed on her right side injuring her shoulder or upper arm her right hip and her right knee. Patient states there was no loss of consciousness. Patient states she's been feeling dizzy on and off for a very long time. She denies chest pain or shortness of breath. Patient states she is feeling a little more short of breath with exertion. Patient also states she's had a worsening cough over the past few days. She denies nausea vomiting diarrhea or constipation. Denies headaches at the present time. Denies neck or back pain. Patient denies numbness or tingling in the extremities. Patient states she woke up today with inability to ambulate due to severe pain in the right leg Past Medical History - Provider Review Nursing Documentation Reviewed: Yes - Travel History Have you recently traveled outside [place] w/in the past 3 mons?: No - Infectious Disease Hx of Infectious Diseases: None - Tetanus Immunization Tetanus Immunization: Unknown - Past Medical History Past Medical History: No Previous - Cardiac Hx Cardiac Disorders: Yes Hx Congestive Heart Failure: Yes Hx Hypertension: Yes - Pulmonary Hx Chronic Obstructive Pulmonary Disease (COPD): Yes - Neurological HX Cerebrovascular Accident: Yes - HEENT Hx Cataracts: Yes (sx l eye) Hx Deafness: Yes (hearing aid uses left only) Other/Comment: glasses - Renal Hx Renal Disorder: Yes (HX Renal cyst) - Endocrine/Metabolic Hx Endocrine Disorders: No - Hematological/Oncological Hx Cancer: Yes (skin) Hx Shingles: Yes Other/Comment: melanoma skin ca removed from back - Integumentary Other/Comment: red buttocks skin discolorations to arms chest and back, 1cm round dry scab to lle from fal few weeks ago - Musculoskeletal/Rheumatological Hx Rheumatoid Arthritis: Yes - Gastrointestinal Hx Gastrointestinal Disorders: Yes (reflux) Hx Diverticulitis: Yes - Genitourinary/Gynecological Hx Incontinence: Yes (dribbles) Other/Comment: right and left lumpectomy - Psychiatric Hx Psychophysiologic Disorder: Yes Hx Anxiety: Yes Hx Bipolar Disorder: No Hx Depression: No Hx Emotional Abuse: No Hx Hallucinations: No Hx Panic Disorder: No Hx Post Traumatic Stress Disorder: No Hx Psychosis: No Hx Physical Abuse: No Hx Schizophrenia: No Hx Sexual Abuse: No Hx Substance Use: No - Past Surgical History Past Surgical History: Non-Contributing - Surgical History Hx Cholecystectomy: Yes Other/Comment: Back Sx, r knee replacement, r rotator cuff sx, loop recorder 03/21. r& l lumpectomy - Anesthesia Hx Anesthesia: Yes Hx Anesthesia Reactions: No Hx Malignant Hyperthermia: No - Suicidal Assessment Feels Threatened In Home Enviroment: No Family/Social History - Physician Review Nursing Documentation Reviewed: Yes Family/Social History: Unknown Family HX Smoking Status: Never Smoked Hx Alcohol Use: No Hx Substance Use: No Hx Substance Use Treatment: No Allergies/Home Meds Allergies/Adverse Reactions: Allergies acetaminophen Allergy (Mild, Verified 06/14/16 15:08) ANAPHYLAXIS codeine Allergy (Mild, Verified 06/14/16 15:08) RASH levofloxacin [From Levaquin] Allergy (Verified 06/14/16 15:08) ANAPHYLAXIS albuterol Adverse Reaction (Verified 06/14/16 15:08) DIZZINESS Review of Systems - Review of Systems Constitutional: absent: Fatigue, Fevers ENT: absent: Sinus Congestion Respiratory: Cough, Other (Dyspnea on exertion). absent: SOB Cardiovascular: absent: Chest Pain, Palpitations Gastrointestinal: absent: Abdominal Pain, Diarrhea, Nausea, Vomiting Genitourinary Female: absent: Dysuria Musculoskeletal: Arthralgias. absent: Back Pain, Neck Pain Skin: absent: Rash, Pruritis Neurological: Dizziness. absent: Headache Psychiatric: absent: Anxiety, Depression Physical Exam Vital Signs Reviewed: Yes Vital Signs Temp Pulse Resp BP Pulse Ox 06/14/16 18:22 150/77 06/14/16 18:09 72 17 150/77 95 06/14/16 15:12 88 16 131/68 99 06/14/16 15:03 98.1 F 88 18 131/68 96 Temperature: Afebrile Blood Pressure: Normal Pulse: Regular Respiratory Rate: Normal Appearance: Positive for: Well-Appearing, Non-Toxic, Comfortable Pain Distress: None Mental Status: Positive for: Alert and Oriented X 3 - Systems Exam Head: Present: Atraumatic Pupils: Present: PERRL Conjunctiva: Present: Normal Mouth: Present: Moist Mucous Membranes Neck: Present: Normal Range of Motion. No: MIDLINE TENDERNESS, Paraspinal Tenderness Respiratory/Chest: Present: Clear to Auscultation, Good Air Exchange. No: Respiratory Distress, Accessory Muscle Use, Wheezes, Rales, Retracting, Tachypneic Cardiovascular: Present: Regular Rate and Rhythm Abdomen: No: Tenderness Back: Present: Normal Inspection. No: Midline Tenderness, Paraspinal Tenderness Upper Extremity: Present: Normal Inspection, NORMAL PULSES, Tenderness (Right arm: There is tenderness noted over the anterior and lateral aspect of the right shoulder and the right humerus), Neurovascularly Intact, Capillary Refill < 2s. No: Normal ROM (Limited abduction of the right shoulder), Swelling, Erythema, Deformity Lower Extremity: Present: Normal Inspection, Normal ROM, Tenderness (Right knee : There is tenderness noted over the anterior aspect of the knee. There is pain with flexion. Pelvis is stable. There is tenderness noted of the posterior aspect of the right hip. There is limited abduction of the hip. Sensation and distal pulses intact. Cap refill less than 2. There is no lower leg edema.), Swelling, Neurovascularly Intact, Capillary Refill < 2 s. No: CALF TENDERNESS, Erythema, Deformity Medical Decision Making ED Course and Treatment: 06/14/16 20:51 80-year-old female with dizziness and fall since yesterday with inability to ambulate due to pain in the right knee and right hip. CAT scan of the head shows no acute intracranial abnormality X-rays of the right shoulder show no fracture X-rays of the right humerus show no fracture X-rays of the right hip show no fracture X-rays of the right knee show no fracture CBC within normal limits CMP BUN; 39 creatinine 1.3 Troponin elevated 0.08 BNP [id number] large jump since previous admission Chest x-ray shows no active disease Case was discussed in depth with Dr. villela will admit observational status to tele for CHF, leg pain, arm pain, difficulty ambulating. consult dr. leigh. lasix 40mg IV ordered. discussed all results with patient; she is in agreement for observational status admission; states she just isnt feeling right. pt was seen and evaluated by dr. limon. impression; CHF, leg pain, arm pain, knee pain, hip pain, difficulty ambulating tele observation - Lab Interpretations Lab Results: 06/14/16 16:45 06/14/16 16:45 Lab Results 06/14/16 16:45: WBC 6.0, RBC 4.16, Hgb 13.1, Hct 38.6, MCV 92.8, MCH 31.5, MCHC 33.9, RDW 16.2 H, Plt Count 96 L, MPV 9.0, Gran % 72.6 H, Lymph % (Auto) 18.4 L , [place] % (Auto) 7.0 H, Eos % (Auto) 1.8, Baso % (Auto) 0.2, Gran # 4.33, Lymph # 1.1 L, [place] # 0.4, Eos # 0.1, Baso # 0.01, Sodium 141, Potassium 4.8, Chloride 103, Carbon Dioxide 26, Anion Gap 17, BUN 39 H, Creatinine 1.3, Est GFR ( Amer) 47, Est GFR (Non-Af Amer) 39, Random Glucose 81, Calcium 9.8 , Total Bilirubin 1.5 H, AST 46 H, ALT 36, Alkaline Phosphatase 107, Lactate Dehydrogenase 617, Total Creatine Kinase 41, Troponin I 0.08 D, NT-Pro-B Natriuret Pep 88506 H, Total Protein 7.9, Albumin 4.3, Globulin 3.6, Albumin/ Globulin Ratio 1.2 - RAD Interpretation Radiology Orders: 06/14/16 15:23 HUMERUS RIGHT [RAD] Stat Hip Right [HIP MIN 2V W/ PELVIS RT] [RAD] Stat KNEE W PATELLA RIGHT 3 VIEW [RAD] Stat SHOULDER RIGHT [RAD] Stat 06/14/16 15:46 HEAD W/O CONTRAST [CT] Stat 06/14/16 16:32 CHEST PORTABLE [RAD] Stat - Medication Orders Current Medication Orders: Discontinued Medications Furosemide (Lasix) 40 mg IVP STAT STA Stop: 06/14/16 17:47 Last Admin: 06/14/16 18:22 Dose: 40 MG MAR Blood Pressure Document 06/14/16 18:22 SYLVAIN (Rec: 06/14/16 18:22 [id number] Blood Pressure Blood Pressure (100/60-150/90 mm Hg) 150/77 IVP Administration Document 06/14/16 18:22 SYLVAIN (Rec: 06/14/16 18:22 SYLVAIN [facility] [id number]) Charges for Administration # of IVP Administrations 1 Disposition/Present on Arrival - Present on Arrival Any Indicators Present on Arrival: No History of DVT/PE: No History of Uncontrolled Diabetes: No Urinary Catheter: No History of Decub. Ulcer: No History Surgical Site Infection Following: None - Disposition Have Diagnosis and Disposition been Completed?: Yes Diagnosis: Congestive heart failure (CHF), Dizziness, Hip pain, Knee pain, Shoulder pain, Inability to ambulate due to knee Disposition: HOSPITALIZED Disposition Time: 16:50 Patient Plan: Observation Patient Problems: Current Active Problems Problem Status Diagnosed Anemia, macrocytic Acute Colitis Acute Congestive heart failure (CHF) Acute Coronary arteriosclerosis in [place] artery Acute Dizziness Acute Edema Acute Gastroenteritis Acute Sciatica Acute Shock Acute Thrombocytopenia Acute Transaminitis Acute COPD (chronic obstructive pulmonary disease) Chronic Dyslipidemia Chronic Gait instability Chronic Hypertension Chronic Pacemaker Chronic Presence of stent in coronary artery in patient with coronary artery disease Chronic Acute diarrhea Resolved Condition: GOOD
[2016-06-14] MEDS ORDERED: Enoxaparin 60 mg Syringe SC STA (22:44)
--- NOTE | 2016-06-14 23:10 | CP.PCM.PN ---
Subjective - Date & Time of Evaluation Date of Evaluation: 06/14/16 Time of Evaluation: 23:04 - Subjective Subjective: Patient was seen by me because ER nurse called me and told to look at EKG. Patient has no complaints now. This 80 year old woman was admitted with history of fall ,dizziness yesterday , chest pain/CHF. Has PMH of HTN,CHF, COPD, CVA, skin cancer, cataract , deafness, GERD, diverticulitis , Rheumatoid arthritis. EKG shows NSR, flipped T waves in anterior lateral leads.Reviewed EKG with who asked me to enter order for ASA and Lovenox. Objective - Vital Signs/Intake and Output Vital Signs (last 24 hours): Temp Pulse Resp BP Pulse Ox 98.1 F 70 18 131/70 99 06/14/16 15:03 06/14/16 22:20 06/14/16 22:20 06/14/16 21:48 06/14/16 22:20 - Medications Medications: Current Medications Aspirin (Ecotrin) 81 mg PO DAILY LYNDSEY Enoxaparin Sodium (Lovenox) 60 mg SC DAILY LYNDSEY PRN Reason: Protocol - Constitutional Appears: Well, No Acute Distress - Head Exam Head Exam: ATRAUMATIC, NORMAL INSPECTION, NORMOCEPHALIC - Eye Exam Eye Exam: Normal appearance - ENT Exam ENT Exam: Normal External Ear Exam - Neck Exam Neck Exam: Normal Inspection - Respiratory Exam Respiratory Exam: NORMAL BREATHING PATTERN - Cardiovascular Exam Cardiovascular Exam: absent: JVD - GI/Abdominal Exam GI & Abdominal Exam: absent: Distended - Rectal Exam Rectal Exam: Deferred - Extremities Exam Extremities Exam: Normal Inspection - Back Exam Back Exam: NORMAL INSPECTION - Neurological Exam Neurological Exam: Alert, Oriented x3 - Psychiatric Exam Psychiatric exam: Normal Affect, Normal Mood - Skin Skin Exam: Normal Color Assessment and Plan - Assessment and Plan (Free Text) Assessment: A/P :EKG changes. Cardiac ishcemia. CHF. HTN. COPD. ASA 81 mg PO daily. Lovenox 60 mg Q12H. Continue present management.
[2016-06-15 00:16] VITALS: BMI 25.0
[2016-06-15] MEDS: Enoxaparin 60 mg Syringe SC SCH ×2 (00:26→11:41)
[2016-06-15] MEDS ORDERED: Levalbuterol 0.63 MG/3 ML Inhal Soln UD IH PRN (08:55)
[2016-06-15 08:56] LABS: ADD MANUAL DIFF? NO
[2016-06-15 08:58] LABS: BASO # 0.02 K/mm3 (0.0-2.0); BASO % 0.4 % (0.0-3.0); EOS # 0.1 (0.0-0.7); EOS % 2.5 % (1.5-5.0); GRAN # 2.53 (1.4-6.5); GRAN % 51.8 % (50.0-68.0); HEMATOCRIT 36.6 % (36.0-48.0); LYMPH # 1.9 (1.2-3.4); LYMPH % 38.3 % (22.0-35.0); MEAN CELL VOLUME 93.6 fL (80.0-105.0); MEAN CORPUSCULAR HGB CONC 35.2 g/dl (31.0-37.0); MEAN PLATELET VOLUME 8.8 fl (7.0-11.0); MONO # 0.3 (0.1-0.6); PLATELET COUNT 78 10^3/uL (120.0-450.0); RED CELL DISTRIBUTION WIDTH 17.7 % (11.5-14.5); WHITE BLOOD COUNT 4.9 10^3/ul (4.5-11.0)
[2016-06-15 09:08] LABS: ALB/GLOB RATIO 1.1 (1.1-1.8); BILIRUBIN,TOTAL 1.1 mg/dL (0.2-1.3); CALCIUM 9.5 mg/dL (8.4-10.5); MAGNESIUM 1.9 mg/dL (1.7-2.2); POTASSIUM 4.1 mmol/L (3.6-5.0); TOTAL PROTEIN 7.2 g/dL (5.8-8.3)
--- NOTE | 2016-06-15 09:55 | CON ---
DATE: 06/15/2016 ADDENDUM TYPE OF DICTATION: Addendum to initial consult dictated this morning. The patient had a recent echo dated 05/24/2016 that shows ejection fraction 65%, right ventricle sever noemi dilated, systolic function of RV is moderately reduced, no aortic regurgitation is present, mild mitral regurgitation, moderate to severe tricuspid regurgitation, RV systolic pressure of 46. In view of above acute coronary syndrome, abnormal EKG, we will arrange cardiac catheterization donn liu. We will discuss with the family, especially the daughter. Discussed with the patient. We will proceed for cardiac catheterization. Continue aspirin, Plavix, Lovenox and keep n.p.o. after 12:00 midnight for cardiac catheterization in the morning. Berenice Maravilla MD cc: [id number] TT: 06/15/2016 09:54:56 Confirmation # [id number] Dictation # [id number] en
[2016-06-15] MEDS ORDERED: Enoxaparin 60 mg Syringe SC SCH (10:00)
--- NOTE | 2016-06-15 10:10 | CON ---
DATE: 06/15/2016 SERVICE: Cardiology. CONSULTING PHYSICIAN: Dr. Berenice Maravilla. REASON FOR CONSULTATION: Abnormal EKG, coronary artery disease, status post multiple stents, status post pacemaker. BRIEF CLINICAL HISTORY: This is an 80-year-old female with past medical history significant for mult iple stents, coronary artery disease, paroxysmal atrial fibrillation, chronic obstructive pulmonary d isease, history of pharyngeal dysphagia, sick sinus syndrome, status post permanent pacemaker, admitt ed after a fall. The patient tripped and complained of cough, sometimes occasionally tightness in th e chest. EKG revealed significant T inversion in anterior lead as well as inferior lead which is new from before; complained of tightness in chest as well. PAST MEDICAL HISTORY: Significant for sick sinus syndrome, status post permanent pacemaker which was upgraded after loop recorder was placed and found to be 6-seconjd pause. History of multiple stents . Last stent was done on 05/28/2015 when the patient had a stent in the circumflex, history of thromb ocytopenia, status post off Plavix for 1 week, resolved. Previous cardiac workup as follows: The patient had echocardiography 05/27/2015 with normal LV functi on, mild aortic stenosis, trace to mild mitral regurgitation, mild tricuspid regurgitation. Last str ess test on 11/18/2015 shows no reversible ischemia, 6-month post PTCA after the stent, ejection fract ion 71%. Last catheterization on 05/28/2015 revealed dominant right coronary artery, left anterior d escending artery patent stent noted with mild in-stent stenosis 40%, stent noted in the distal circum flex, proximal to mid stent noted in circumflex was patent. Ramus intermedius small caliber vessel. Right coronary artery is a large caliber vessel with a ____ stenosis, but FFR was 0.91 in RCA, so PT CA of RCA was not done and PTCA of the circumflex was done with plain balloon angioplasty. SOCIAL HISTORY: Denies smoking. Denies any history of alcohol abuse. CURRENT MEDICATIONS: The patient is taking multivitamin, Remeron, Xopenex, Lasix, Pepcid, clopidogre l, Coreg, aspirin, acetaminophen. REVIEW OF SYSTEMS: As per HPI. PHYSICAL EXAMINATION: VITAL SIGNS: Temperature afebrile, heart rate 67, blood pressure 145/76. HEENT: PERRLA. Extraocular muscles intact. NECK: Supple. No carotid bruits. No thyromegaly. CHEST: Clear to auscultation. HEART: S1, S2 regular. ABDOMEN: Soft. EXTREMITIES: Clubbing and cyanosis negative. LABORATORY DATA: Blood workup as follows: WBC 4.9, hemoglobin 12.9, hematocrit 36.6, platelet count 78. Chemistry shows sodium 130, potassium 4.1, chloride 104, carbon dioxide 27, anion gap of 12, BU N 38, creatinine 1.3. Troponin 0.08, BNP 10,500. IMPRESSION: Acute coronary syndrome, status post fall, abnormal EKG, T inversion in anterior lead as well as in inferior lead, coronary artery disease, status post multiple stents in left anterior desc ending, circumflex and right coronary artery. RECOMMENDATION: We will give the Lovenox and consider cardiac catheterization tomorrow. Discussed w ith the patient, discussed with the patient's daughter, Claire, and we will keep n.p.o. after 12:00 mid night for cardiac catheterization tomorrow. Thank you, Dr. England, for providing us the opportunity in taking care of the patient. History of pacemaker, history of multiple stents, history of pharyngeal dysphagia, history of COPD, h istory of congestive heart failure. Further recommendation after the cardiac catheterization. We wi ll follow with you. Berneice Maravilla MD cc:Forest England MD [id number] TT: 06/15/2016 10:09:36 Confirmation # [id number] Dictation # [id number] tn
[2016-06-15] MEDS: Multivitamin With Minerals Tab PO SCH (11:42)
--- NOTE | 2016-06-15 13:59 | HP ---
An 80-year-old female who came in with syncope. HISTORY OF PRESENT ILLNESS: An 80-year-old female with history of recurrent syncope, fall, unsteadin ess due to multiple musculoskeletal symptoms including her both knee problems and chronic multiple ba ck and disk disease. The patient has no chest pain, no short of breath. She just found herself on t he floor. She was being released within a week ago because of symptoms of congestive heart failure w harleen was treated with Lasix and was diuresed a little bit more than we do and her Lasix was twice a d ay. We decreased it to once a day. The patient came into the hospital with the above complaint. Th ere was no edema and she did not complain of any edema of lower extremity, did not complain of chest pain, no short of breath. She did have a history of coronary artery disease, multiple stents, hypert ension, hypercholesterolemia. 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 The patient seen by insole taper as outpatient on [place]. The patient also has a history of recurrent syncope. ALLERGIES: SHE IS ALLERGIC TO CODEINE, LEVOFLOXACIN AND ALBUTEROL MAKES HER HAVING PALPITATIONS. Adam peters does take Tylenol without any allergies. Tylenol is okay. She has no allergy to Tylenol. REVIEW OF SYSTEMS: As in the present illness, she had unsteady gait, syncope, dizziness, urine incon tinence and gait problems. PHYSICAL EXAMINATION: GENERAL: The patient seen on the floor. She just came from Emergency Room to the floor. The patien t transferred to the bed. No chest pain, no respiratory distress. She is alert, awake, oriented x 3 . VITAL SIGNS: The patient does have a temperature 98.3, heart rate 85, blood pressure is 149/99, resp irations 20, saturation 97% on room air. HEAD AND NECK: There is decreased range of motion of the neck because of mild pain, mild decreased r lauren of motion. CHEST: Clear, good air entry. CARDIAC: First sound, second sound normal. ABDOMEN: Soft, nontender. EXTREMITIES: There is no edema bilaterally. NEUROLOGIC: She moves all extremities. LABORATORY DATA: White count 6, hemoglobin 16.1, hematocrit 38.6, platelets are 96. Chemistry: Sod ium 141, potassium 4.8, chloride 103, bicarb 26, BUN 39, creatinine 1.3, bilirubin 1.5, AST 46, ALT 3 6, alk phos 107 and proBNP is 10,500. Troponin is high at 0.08. EKG shows ST-T changes. No ST elev ations. There was T-wave inversion in chest leads and lateral leads. Previous EKG shows pacemaker r hythm. The patient's chest x-ray shows no congestive heart failure, no active pulmonary disease. Th e patient also had x-rays of the ____, knees and shoulders and was negative. CT of the head shows no bleeding and a chest x-ray here, it shows no active pulmonary disease, no pulmonary nodules, masses or infiltrates. IMPRESSION AND PLAN: 1. This is an 80-year-old female came in with syncope, positive troponin, EKG changes, non-ST elevat ions. We will admit the patient for non-ST elevated myocardial infarction. We will get cardiology c onsult. We will give Lovenox, aspirin, Plavix, beta blockers. We will follow up clinically. Keep t he patient on telemetry. 2. History of rheumatoid. We will evaluate the patient, possible patient went back to methotrexate. Platelets are low. We will get a hematology consult on the case. 3. Hypertension, hypercholesterolemia, renal insufficiency. We will resume her medicines and we patience l follow up clinically. Forest England MD cc: [phone] TT: 06/15/2016 13:58:42 tn
--- NOTE | 2016-06-15 16:50 | CARD ---
APPROVED REPORT EKG Measurement Heart [id number] <Conclusion> Normal sinus rhythm ST & T wave abnormality, consider inferior ischemia ST & T wave abnormality, consider anterolateral ischemia Prolonged QT Abnormal ECG
[2016-06-15] MEDS: Levalbuterol 0.63 MG/3 ML Inhal Soln UD IH SCH (19:54)
--- NOTE | 2016-06-15 22:20 | PN ---
DATE: 06/15/2016 The patient today was seen. She is comfortable, no distress. No chest pain, and she still has some cough. The patient had still unsteady gait and difficulty to ambulate. PHYSICAL EXAMINATION: Temperature 97.6, heart rate is 78, blood pressure 132/80, respirations 20. HEAD AND NECK: Normal. No JVD, no thyromegaly. CHEST EXAMINATION: Clear, good air entry. CARDIAC: First sound, second sound normal. ABDOMEN: Soft and nontender. EXTREMITIES: No edema. NEUROLOGICALLY: Normal. LABORATORY: White count 4.9, hemoglobin 12.9, hematocrit 36.6, platelet is 78. Chemistry: Sodium 1 39, potassium 4.1, chloride 104, bicarb 27, BUN 38, creatinine 1.3. Liver functions test is normal. The patient also had repeat troponin which came down a little bit, 0.06. TSH is normal 1.44. IMPRESSION AND PLAN: 1. Acute non-ST elevation myocardial infarctions. The patient will go for cardiac catheterization to reggie by Dr. Maravilla, and further workup will be dependent on the initial evaluations, whether stents w ill needed or not. 2. Hypertension, hypercholesterolemia, renal insufficiency, acute congestive heart failure secondary to myocardial infarctions. Continue Lasix, continue current medication. 3. Chronic back pain, chronic osteoarthritis, chronic rheumatoid arthritis, multiple disk disease in the spine and back, with history of knee replacement. Will continue physical therapy. 4. Thrombocytopenia, etiology. 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 Will get Dr. Velasquez to evaluate th e low platelets, and will continue current treatment for now. Forest England MD cc: [id number] TT: 06/15/2016 22:19:44 Confirmation # [id number] Dictation # [id number] colby
--- NOTE | 2016-06-16 00:53 | CON ---
DATE: 06/15/2016 LOCATION: The patient is currently in 276, bed 1. SUBJECTIVE: This is a patient who is known to me. REASON FOR CONSULTATION: I have been asked to see the patient for thrombocytopenia. The patient was admitted to the hospital with syncope. She has history of recurrent syncope, fall, unsteadiness of gait due to multiple symptoms involving her musculoskeletal system including both knee problems, front desk monitor lorelei multiple discogenic disease of the back. PAST MEDICAL HISTORY: History for coronary artery disease with multiple stents. Multiple stents, hi story of hypertension, history of hypercholesterolemia. In this background, the patient has history of rheumatoid arthritis, pacemaker and also has had a history of a mass in the left breast picked up on an incidental finding, which I believe has yet still not been completely worked up. The patient a lso has a history of mild dementia and has been treated for shingles in the past. The patient has a diagnosis of rheumatoid arthritis, being treated with methotrexate and, in the past when she was seen by us in 11/2015, she had progressive thrombocytopenia where the platelet count had gone down from 1 00,000 down to 30,000. with a combination of both Plavix and methotrexate, and after the medic ations were held the platelet counts gradually improved and the thrombocytopenia resolved. The patie nt sees a terrazzo installer as an outpatient on [place]. ALLERGIES: THE PATIENT IS ALLERGIC TO CODEINE, LEVAQUIN, ALBUTEROL. Makes her have palpitations. S he has no allergies to Tylenol. REVIEW OF SYSTEMS: The patient denies any history of shortness of breath, headache, dizziness, nause a or vomiting. She has unsteady gait and urinary incontinence. PHYSICAL EXAMINATION: GENERAL: The patient is awake, alert, and oriented x 3. Denies any chest pain or respiratory distre ss. VITAL SIGNS: Reveal a T-max of 98.4, heart rate is 85, blood pressure is 149/99, respirations 20, O2 sat is 97% on room air. HEENT: Head is normocephalic, atraumatic. The patient is having limited range of motion in the neck because of mild pain. Range of motion is decreased secondary to arthritic changes. LUNGS: Clear to percussion and auscultation. Examined the oropharynx. Reveals no petechiae. No or opharyngeal lesions. CARDIOVASCULAR: Reveals S1 and S2 to be normal. The patient is noted to have borderline tachycardia . ABDOMEN: Soft, nontender. Bowel sounds are present. No rebound, rigidity or guarding is noted. EXTREMITIES: Reveals no cyanosis, clubbing or edema. NEUROLOGIC: Reveals no focal deficits. Higher functions are normal. LABORATORY DATA: From today reveals a white count of 6, hemoglobin 16, hematocrit 38, platelet count 96,000. Sodium is 141, K is 4.8, chloride 103, bicarbonate 26, BUN 39, creatinine 1.3, bilirubin 1. 5, AST is 46, ALT 36, alkaline phosphatase is 107, proBNP is 10,500. Troponin at 0.08. The patient has signs and symptoms of an acute coronary syndrome and has been set up for a cardiac ca theterization in the morning. CAT scan of the head shows no bleeding. Chest x-ray shows no active p ulmonary disease or any pulmonary nodules. ASSESSMENT NOTES AND PLAN: An 80-year-old female with thrombocytopenia and a background history of s yncope, positive troponin, EKG changes, nonspecific ST elevation. Will be going for cardiac catheter ization in a.m. History of rheumatoid arthritis, but the methotrexate currently is on hold. Platele t counts are slipping and will make a decision after the cardiac catheterization and speak to Dr. Heath larson; however, proceed because patient may have to be on blood thinners post-cath depending on wha t is found at the time of catheterization, but she will still continue to need antiplatelet agents an d the patient may have a tough time and we may have to symptomatically transfuse blood, but will hold off on Plavix and hold off on platelets because it could aggravate the situation by increasing the r isk for more blockages as far as the coronary artery disease is concerned. We will continue to monit or the patient very carefully and we can empirically start the patient on low dose steroids. She prema uld respond to the same. In the meantime, the patient's methotrexate is on hold for now. We will sp eak to Dr. England in detail as well as with Dr. Maravilla. Routine post exam instructions have been given to the patient. Will follow the counts very carefully with you. Thank you for allowing me to participate in the management of this patient. Kentrell Velasquez MD cc: [id number] TT: 06/16/2016 00:53:32 Confirmation # [id number] Dictation # [id number] mn
[2016-06-16] MEDS ORDERED: DiphenhydrAMINE 50 mg/ml Inj IVP STA (00:54)
--- NOTE | 2016-06-16 00:55 | CP.PCM.PN ---
Subjective - Date & Time of Evaluation Date of Evaluation: 06/16/16 Time of Evaluation: 00:54 - Subjective Subjective: S:Patient was seen at bed side. She requested for something to help he fall asleep. Has no other complaints now. States that she feels anxious about procedure she is going to have in the morning .(Cardiac catheterization.) Pertinent medical record was reviewed. O: Last Vital Signs 3 Temp 97.7 F 06/16/16 00:01 Pulse 71 06/16/16 02:00 Resp 20 06/16/16 00:01 BP 130/91 H 06/16/16 00:01 Pulse Ox 96 06/15/16 00:01 Awake, alert, not in distress. LUNGS:Normal breathing pattern. NEURO:Speech normal. A:Adjustment insomnia. P:Benadryl 25 mg IV x 1. Objective - Vital Signs/Intake and Output Vital Signs (last 24 hours): Temp Pulse Resp BP Pulse Ox 97.7 F 69 20 130/91 H 96 06/16/16 00:01 06/16/16 00:01 06/16/16 00:01 06/16/16 00:01 06/15/16 00:01 Intake and Output: 06/15/16 06/16/16 18:59 06:59 Intake Total 300 Balance 300 - Medications Medications: Current Medications Aspirin (Ecotrin) 81 mg PO DAILY [facility] Last Admin: 06/15/16 11:42 Dose: 81 mg Atorvastatin Calcium (Lipitor) 40 mg PO DIN [facility] Last Admin: 06/15/16 17:36 Dose: 40 mg Carvedilol (Coreg) 3.125 mg PO BID [facility] Last Admin: 06/15/16 17:36 Dose: 3.125 mg Clopidogrel Bisulfate (Plavix) 75 mg PO DAILY [facility] Last Admin: 06/15/16 11:42 Dose: 75 mg Docusate Sodium (Colace) 100 mg PO BID [facility] Last Admin: 06/15/16 17:35 Dose: 100 mg Famotidine (Pepcid) 20 mg PO DAILY [facility] Last Admin: 06/15/16 11:41 Dose: 20 mg Furosemide (Lasix) 40 mg IVP DAILY [facility] Last Admin: 06/15/16 11:41 Dose: 40 mg Levalbuterol HCl (Xopenex) 0.63 mg IH [id number] [facility] Last Admin: 06/15/16 19:54 Dose: 0.63 mg Multivitamins/Minerals (Therapeutic-M Tab) 1 tab PO DAILY [facility] Last Admin: 06/15/16 11:42 Dose: 1 tab
[2016-06-16] MEDS: Levalbuterol 0.63 MG/3 ML Inhal Soln UD IH SCH ×5 (01:49→19:51)
[2016-06-16 07:48] LABS: ADD MANUAL DIFF? NO
[2016-06-16 07:53] LABS: BASO # 0.02 K/mm3 (0.0-2.0); BASO % 0.4 % (0.0-3.0); EOS # 0.2 (0.0-0.7); EOS % 4.1 % (1.5-5.0); GRAN # 1.83 (1.4-6.5); GRAN % 39.7 % (50.0-68.0); HEMATOCRIT 38.4 % (36.0-48.0); LYMPH # 2.3 (1.2-3.4); LYMPH % 49.5 % (22.0-35.0); MEAN CELL VOLUME 92.5 fL (80.0-105.0); MEAN CORPUSCULAR HEMOGLOBIN 31.8 pg (25.0-35.0); MEAN CORPUSCULAR HGB CONC 34.4 g/dl (31.0-37.0); MEAN PLATELET VOLUME 9.4 fl (7.0-11.0); MONO # 0.3 (0.1-0.6); MONO % 6.3 % (1.0-6.0); PLATELET COUNT 98 10^3/uL (120.0-450.0); RED CELL DISTRIBUTION WIDTH 17.8 % (11.5-14.5); WHITE BLOOD COUNT 4.6 10^3/ul (4.5-11.0)
[2016-06-16 08:03] LABS: ALB/GLOB RATIO 1.2 (1.1-1.8); BILIRUBIN,TOTAL 0.8 mg/dL (0.2-1.3); CALCIUM 9.8 mg/dL (8.4-10.5); POTASSIUM 4.5 mmol/L (3.6-5.0); TOTAL PROTEIN 7.2 g/dL (5.8-8.3)
[2016-06-16] MEDS ORDERED: Iodixanol 320 MG/ML 200 ML BOTTLE IV ONE (09:45)
[2016-06-16] MEDS ORDERED: Nitroglycerin 50mg in D5W 250 ML IV ONE (09:45)
[2016-06-16] MEDS ORDERED: Midazolam 2 MG/2 ML VIAL ONE (09:45)
[2016-06-16] MEDS ORDERED: Lidocaine 2% Inj (20ml) ONE (09:46)
[2016-06-16] MEDS: Multivitamin With Minerals Tab PO SCH (10:12)
[2016-06-16] MEDS ORDERED: Bacitracin 500 Units/gm Oint Foilpak UD TOP ONE (11:10)
[2016-06-16] MEDS ORDERED: Sodium Chloride 0.9% 1,000 ML IV SCH ×2 (11:15→17:05)
--- NOTE | 2016-06-16 11:40 | PN ---
DATE: 06/16/2016 REASON FOR CONSULTATION AND FOLLOWUP: Hemodynamic ST-T changes, status post multiple stents with prema rtness of breath, cardiac evaluation. BRIEF CLINICAL HISTORY: An 80-year-old female with past medical history significant for multiple alba nts in the coronaries, history of paroxysmal atrial fibrillation, syncope, status post permanent pace maker, admitted with shortness of breath and grossly abnormal EKG,. T-wave changes anterior leads, s o the patient underwent cardiac catheterization today that revealed left main essentially free of sig nificant disease, proximal LAD 50-60% in the worst view, patent stent in circumflex, patent distal st ent in LAD, patent stent in RCA, moderate disease in the RCA, medical treatment recommended. EDP was in the range of 15, LV ejection fraction 65%. Medical treatment recommended. The patient feels alr ight, no chest pain. PHYSICAL EXAMINATION: VITAL SIGNS: Temperature afebrile, heart rate 60, blood pressure 124/75. HEENT: PERRLA. Extraocular muscles intact. NECK: Supple. No carotid bruits. No thyromegaly. CHEST: Clear to auscultation. HEART: S1, S2 regular. ABDOMEN: Soft. EXTREMITIES: Clubbing and cyanosis negative. BLOOD WORKUP: As follows: WBC 4.6, hemoglobin 13.2, hematocrit 38.4, platelet count 98. Chemistry shows sodium 130, potassium 4.9, chloride 101, carbon dioxide 28, anion gap of 15, BUN 46, creatinine 1.8. IMPRESSION: Status post cardiac catheterization, nonobstructive coronary artery disease, status post multiple stents, sick sinus syndrome and acute kidney injury. RECOMMENDATION: Continue IV fluid, monitor renal function closely. Further recommendation depending upon the hospital course. We will follow with you. Aggressive medical treatment. We will follow w ith you. Thank you, Dr. England, for providing us the opportunity in taking care of the patient. We will follo w with you. Berenice Maravilla MD cc: [id number] TT: 06/16/2016 11:39:05 Confirmation # [id number] Dictation # [id number] tn
[2016-06-16] MEDS ORDERED: Bacitracin 500 Units/gm Oint Foilpak UD ONE (13:11)
[2016-06-16 17:33] LABS: CALCIUM 8.6 mg/dL (8.4-10.5); POTASSIUM 4.1 mmol/L (3.6-5.0)
--- NOTE | 2016-06-16 18:47 | CARD ---
APPROVED REPORT Procedure(s) performed: Left Heart Catheterization HISTORY disease, previous PCI (The PCI date was 05/2015), hypertension , dyslipidemia , Hx of Multiple PTCAs admitted with ACS, Michelle ST T changes in anterior precordial and inferior leads.. INDICATION The indication(s) include : unstable angina , dyspnea. CASE TECHNIQUE The patient was brought urgently to the Cardiac Catheterization Laboratory in a fasting state and was prepped and draped in a sterile manner. The left wrist was infiltrated with 2% Lidocaine subcutaneous anesthesia. A 6 Fr Glidesheath (Radial) sheath was inserted into the left radial vein without difficulty. Coronary angiography was performed using coronary diagnostic catheters. The left coronary system was accessed and visualized with a Diagnostic ,JL3.5,5FR catheter. The right coronary system was accessed and visualized with a Diagnostic Jl3.5,5FR catheter. The left ventricle was accessed and visualized with a pigtail catheter. Left ventricular/Aortic Valve gradient assessed on pullback. Left ventriculogram was performed in CROFT projection. Closure device was deployed with a Fr TR Band (Regular) without any complications. The patient tolerated the procedure well and there were no complications associated with the procedure. Vessel Analysis The patient's coronary anatomy is co-dominant. The left main coronary artery is a medium size vessel with intimal irregularities. The left main bifurcates to the left anterior descending and circumflex. The left anterior descending artery is a medium size vessel with diffuse calcification noted throughout this vessel and without significant stenosis. patent stent in mid segment There is a 55-60% stenosis in the proximal segment. The first diagonal branch is a small size vessel with intimal irregularities and without significant stenosis. The second diagonal branch is a small size vessel with intimal irregularities and without significant stenosis. The circumflex artery is a medium size vessel with diffuse calcification noted throughout this vessel and without significant stenosis. patent stent in oroximal and mid segment The first obtuse marginal branch is a small size vessel with diffuse calcification noted throughout this vessel and without significant stenosis. The second obtuse marginal branch is a small size vessel with diffuse calcification noted throughout this vessel and without significant stenosis. The left posterior descending artery is a medium size vessel with diffuse calcification noted throughout this vessel and without significant stenosis. The right coronary artery is a medium size vessel with diffuse calcification noted throughout this vessel and without significant stenosis. patent stent in mid segment There is a 40% stenosis in the proximal segment. The right posterior descending artery is a medium size vessel with diffuse calcification noted throughout this vessel and without significant stenosis. Left Ventricle The left ventricle is normal in size with normal contractility. There was no cardiomyopathy. The left ventricular ejection fraction is estimated to be 65%. The left ventricular end diastolic pressure is 15 mmHg. There was no gradient across the aortic valve upon pullback. Conclusion Non obstructive CAD, Limited proximal LAD 55-60%. All previously placed Stents in LAD,CX, and RCa are patent. Preserved LV Fx, EF-65%, EDP-15 mmof HG. Recommendations Aggressive Medical Therapy CC; Dr. England
--- NOTE | 2016-06-16 23:26 | PN ---
DATE: 06/16/2016 REASON FOR CONSULTATION AND FOLLOWUP: The patient has ongoing thrombocytopenia in the background his tory of being on aspirin and Plavix, significant coronary artery disease status post cardiac cath, an d re-study today. BRIEF CLINICAL HISTORY: The patient is 80 years old, has a significant history of coronary artery di sease, history of mild dementia, history of significant rheumatoid arthritis on methotrexate in the p ast until recently. Now admitted to the hospital after having had a syncopal episode and signs and s ymptoms suggestive of a non-ST CA, with background history of also having paroxysmal atrial fibrillat ion status post placement of permanent pacemaker. The patient had T-wave changes in the anterior leads, so underwent cardiac catheterization which show that most of the previous stents are still functioning, with a left ventricular ejection fraction of 65%. Buffet Manager had recommended medical treatment. Physically, the patient is awake, alert, and oriented. Blood pressure is 124/75, the patient's heart rate is 60. He is in no acute distress. HEAD: Normocephalic, atraumatic. Examination of the oropharynx reveals no petechia, no oropharyngea l lesions. NECK: Supple. There is no carotid bruit, no thyromegaly. LUNGS: Clear to percussion and auscultation. HEART: Reveals S1 and S2 to be normal and regular. ABDOMEN: Soft, nontender. EXTREMITIES: Reveals no cyanosis, clubbing, or edema. White count is 4.7, with a hemoglobin of 13.2, hematocrit 38, platelet count is 98,000. Electrolytes are grossly unremarkable. ASSESSMENT NOTES AND PLAN: The patient has on ongoing thrombocytopenia which is about the same. The patient is on Plavix, which is going to affect the platelet function. If the platelet count is wors ened as during a previous admission, we can try low dose steroids to bring the platelet count up. Ot herwise, I would let things ride for now. More importantly, we have to optimize medical treatment fo r her cardiac status. Platelet transfusion at this time would be contraindicated, as it might increa se the risk of blockage of the stents. Will continue to monitor the platelet count with you, along w ith other recommendations given by cardiology. Aggressive medical treatment for cardiologic dysfunct ion is in order at this time. Will follow the patient with you, and give recommendation if and when the platelet count should go do wn to 20,000. Thanking you for allowing me to participate in the management of this patient. Very truly yours, Kentrell Velasquez MD cc: [id number] TT: 06/16/2016 23:25:58 Confirmation # [id number] Dictation # [id number] jn
[2016-06-17] MEDS: Levalbuterol 0.63 MG/3 ML Inhal Soln UD IH SCH ×4 (01:05→20:55)
--- NOTE | 2016-06-17 01:57 | PN ---
DATE: 06/16/2016 SUBJECTIVE: The patient is status post cardiac catheterization, the patient is stable, no chest pain , no shortness of breath, no nausea, no vomiting. PHYSICAL EXAMINATION: VITAL SIGNS: Temperature 97.3, heart rate 60, blood pressure 118/75, respirations 20. HEAD AND NECK: Normal. No JVD, no thyromegaly. CHEST: Clear, good entry. CARDIAC: First and second sounds are normal. ABDOMEN: Soft, nontender. EXTREMITIES: No edema. NEUROLOGIC: Normal. LABORATORY DATA: White count 4.6, hemoglobin , hematocrit 38.4, platelets 100. Chemistry shows sodium 139, potassium 4.5, chloride 101, bicarbonate 28, BUN 46, creatinine is 1.8. Liver enzymes n oted normal except AST is 43. IMPRESSION AND PLAN: 1. Acute non-ST elevation myocardial infarction, status post cardiac catheterization. The patient h as nonobstructive coronary artery disease. Medical treatment: The patient had a cardiac catheteriza tion from her left radial artery. 2. Hypertension, hypercholesterolemia. Continue current medications. 3. Congestive heart failure. She is currently on Lasix. Continue that and monitor her laboratory s tudies. 4. Acute renal failure, probably secondary to medications. Could be contrast related. We will javier tor her creatinine. Repeat labs in the morning and continue IV fluids for now and will get a nephrol ogy consult, Dr. Anderson 5. Low platelets, thrombocytopenia, etiology unclear. Dr. Velasquez will follow up on that. We will see what the etiologies could be; idiopathic thrombocytopenia or autoimmune thrombocytopenia. Since the patient has a history of rheumatoid arthritis, will followup clinically and repeat labs in the mo rning. Continue current treatment. Forest England MD cc: [phone] TT: 06/17/2016 01:56:46 Confirmation # [id number] Dictation # [id number]
[2016-06-17 07:28] LABS: ADD MANUAL DIFF? NO
[2016-06-17 07:36] LABS: BASO # 0.01 K/mm3 (0.0-2.0); BASO % 0.2 % (0.0-3.0); EOS # 0.2 (0.0-0.7); EOS % 4.6 % (1.5-5.0); GRAN # 2.15 (1.4-6.5); GRAN % 52.3 % (50.0-68.0); HEMATOCRIT 34.6 % (36.0-48.0); LYMPH # 1.5 (1.2-3.4); LYMPH % 36.3 % (22.0-35.0); MEAN CELL VOLUME 94.8 fL (80.0-105.0); MEAN CORPUSCULAR HEMOGLOBIN 32.1 pg (25.0-35.0); MEAN CORPUSCULAR HGB CONC 33.8 g/dl (31.0-37.0); MONO # 0.3 (0.1-0.6); MONO % 6.6 % (1.0-6.0); PLATELET COUNT 93 10^3/uL (120.0-450.0); RED CELL DISTRIBUTION WIDTH 18.5 % (11.5-14.5); WHITE BLOOD COUNT 4.1 10^3/ul (4.5-11.0)
[2016-06-17 08:00] LABS: ALB/GLOB RATIO 1.1 (1.1-1.8); BILIRUBIN,TOTAL 0.7 mg/dL (0.2-1.3); CALCIUM 9.1 mg/dL (8.4-10.5); PHOSPHOROUS 3.9 mg/dL (2.5-4.5); POTASSIUM 4.2 mmol/L (3.6-5.0); TOTAL PROTEIN 6.2 g/dL (5.8-8.3)
[2016-06-17] MEDS: Multivitamin With Minerals Tab PO SCH (10:33)
[2016-06-17] MEDS ORDERED: guaiFENesin 100 mg/5 ml Syrup UD PO PRN (10:44)
[2016-06-17] MEDS ORDERED: Promethazine DM 6.25 mg-15 mg/5 ml Syrup PO PRN (12:30)
--- NOTE | 2016-06-17 15:46 | CON ---
DATE: 06/17/2016 REASON FOR CONSULTATION: Acute kidney injury. HISTORY OF PRESENTING ILLNESS: An 80-year-old lady, previously unknown to me, presented to the Emerg ency Room on 06/14 status post fall at home. As per the ER notes, the patient was walking and felt diz zy and tripped and fell. She landed on her right side. She injured her right shoulder, right upper arm and right hip and right knee. As per the ER note, there was no loss of consciousness. The patie nt gives a history of dizziness. She reports she has vertigo. She often comes close to falling. Sh e also complains of shortness of breath. She gives no history of nausea, vomiting or diarrhea. She denies any chest tightness. She denies any palpitations. She has restricted mobility. In the Emergency Room, initial blood work showed BUN of 38 and creatinine of 1.3. Yesterday, her cre atinine went up to 1.8; hence, consultation was requested. PAST MEDICAL AND SURGICAL HISTORY: Bilateral knee replacement, CAD, rheumatoid arthritis, lumbar dis k disease, cervical spondylitis, unsteady gait, COPD, thrombocytopenia, recurrent syncopal episodes. FAMILY HISTORY: Noncontributory. SOCIAL HISTORY: Quit smoking 40 years ago, no alcohol, no IV drug abuse. ALLERGIES: CODEINE, LEVAQUIN, ALBUTEROL, TYLENOL. MEDICATIONS: At home included Remeron, Lasix, Pepcid, Colace, Plavix, Coreg, Lipitor, Ecotrin, Tylen ol. REVIEW OF SYSTEMS: The patient complains of pain in her right knee and right hip. She complains of shortness of breath. She denies any abdominal pain, nausea, vomiting. All systems were reviewed and they are unremarkable. PHYSICAL EXAMINATION: GENERAL: Elderly lady lying in bed in mild respiratory distress. VITAL SIGNS: Blood pressure 123/58, heart rate 72, respiratory rate 20, temperature 97.5. HEENT: Normocephalic, atraumatic, positive pallor. NECK: Supple, no JVD. LUNGS: Bilateral rhonchi, minimal rales. CARDIAC: S1, S2, regular rate and rhythm, no murmur, no rub. ABDOMEN: Soft, nondistended, nontender. Bowel sounds present. EXTREMITIES: Scar over the right knee, trace edema. INTAKE AND OUTPUT: Not charted. LABORATORY DATA: WBC 4.1, hemoglobin 11.7, hematocrit 35, platelets 93. Sodium 139, potassium 4.2, chloride 102, CO2 25, BUN 34, creatinine 1.2, glucose 82, calcium 9.1, phosphorus 3.9, magnesium 2.0, AST 31, ALT 34, albumin 3.2, globulin 3.0. BNP 1920. The patient had a cardiac cath done on 06/16 which showed nonobstructive CAD, limited to proximal LAD 5 5-60% stenosis. Previous stents are all patent, preserved left ventricular function. ASSESSMENT: 1. Acute kidney injury superimposed on chronic kidney disease stage III. 2. Resolved acute kidney injury. 3. Suspect prerenal azotemia since renal function improved with hydration. 4. Coronary artery disease. 5. Rheumatoid arthritis. 6. Osteoarthritis. 7. Gait abnormalities. PLAN: 1. Avoid nephrotoxins. 2. Push p.o. fluids. 3. No further IV fluids needed. 4. Check urinalysis. 5. Switch to p.o. Lasix soon. Thank you for the courtesy of this consultation. We will follow this patient closely with you. Amaya Olivera MD cc: [id number] TT: 06/17/2016 15:45:05 Confirmation # [id number] Dictation # [id number] tn
--- NOTE | 2016-06-17 20:16 | PN ---
DATE: 06/17/2016 REASON FOR CONSULTATION AND FOLLOWUP: Dynamic ST-T changes, history of multiple stents, status post cardiac catheterization, nonobstructive coronary artery disease. BRIEF CLINICAL HISTORY: An 80-year-old female with past medical history significant for multiple alba nts, sick sinus syndrome with a permanent pacemaker, syncope, AFib, laryngeal dysfunction, motility d isorder; who admitted with dynamic ST-T changes, after a fall, and sustained a trauma to the right kn ee, which was replaced a couple of years ago. She underwent cardiac catheterization that revealed no nobstructive coronary artery disease. Denies any chest pain, shortness of breath, or palpitation. PHYSICAL EXAMINATION: VITAL SIGNS: Temperature afebrile, heart rate 60, blood pressure 123/50. HEENT: PERRLA. Extraocular muscles intact. NECK: Supple. No carotid bruits. No thyromegaly. CHEST: Clear to auscultation. HEART: S1, S2 regular. ABDOMEN: Soft. EXTREMITIES: Clubbing and cyanosis negative. BLOOD WORKUP: As follows: WBC 4.8, hemoglobin , hematocrit 34.6, platelet count 93. Chemistry shows sodium 130, potassium 4, chloride 107, carbon dioxide 25, anion gap of 11, BUN 34, creatinine 1.2. BNP 1920. IMPRESSION: Status post cardiac catheterization, nonobstructive coronary artery disease, history of thrombocytopenia and back required to hold the Plavix, history of last stent almost a year ago, hist ory of chronic obstructive pulmonary disease, history of permanent pacemaker. RECOMMENDATION: Since the platelets are trending down, and the patient is more than a year, we will hold Plavix, continue baby aspirin. We will follow with you. Thank you, Dr. England, for providing the opportunity in taking care of the patient, Darcy Mcguire. We will discontinue telemetry. We will follow closely and repeat the lab in the morning. Thank you, Dr. England, for providing the opportunity in taking care of the patient. Nancy Estrella t the lab in the morning. We will discontinue telemetry. Berenice Maravilla MD cc: [id number] TT: 06/17/2016 20:15:52 Confirmation # [id number] Dictation # [id number] ln
[2016-06-17 20:32] LABS: PH,URINE 5.5 (4.7-8.0); URINE BILIRUBIN NEGATIVE (NEGATIVE); URINE BLOOD NEGATIVE (NEGATIVE); URINE GLUCOSE (UA) NEGATIVE (NEGATIVE); URINE KETONE NEGATIVE (NEGATIVE); URINE LEUKOCYTE ESTERASE TRACE Leu/uL (NEGATIVE); URINE PROTEIN NEGATIVE mg/dL (<30 mg/dL); URINE UROBILINOGEN 0.2 E.U./dL (<1 E.U./dL)
[2016-06-17 20:34] LABS: URINE APPEARANCE CLEAR (CLEAR); URINE COLOR YELLOW (YELLOW)
[2016-06-17 20:53] LABS: URINE EPITHELIAL CELLS 0 - 2 /hpf (0-5); URINE RBC 0 - 2 /hpf (0-2); URINE WBC 0 - 2 /hpf (0-6)
[2016-06-17 20:54] LABS: URINE BACTERIA TRACE (NEG)
--- NOTE | 2016-06-17 21:13 | CON ---
DATE: 06/17/2016 REFERRING PHYSICIAN: Dr England REASON FOR CONSULT: Obstructive sleep apnea syndrome, chronic lung disease, cough, and shortness of breath. HISTORY OF PRESENT ILLNESS: This is an 80-year-old female, recently discharged from the hospital. Lizandro lópez at home, apparently had a dizzy spell, fell down, injured her right shoulder and arm. Brought eduardo rizzo the Emergency Room. Since in the hospital, has been having cough, shortness of breath, insomnia, multiple night awakening s. There is no hemoptysis, no hematemesis, no hematuria, no diarrhea reported. No leg pain or leg s welling. PAST MEDICAL HISTORY: Chronic obstructive lung disease, cardiac diastolic dysfunction, sleep apnea s yndrome, hypertension, hyperlipidemia, coronary artery disease, rheumatoid arthritis, been on methotr exate and steroids, history of thrombocytopenia. ALLERGIES: ALLERGIC TO LEVAQUIN, ALBUTEROL AND CODEINE. SOCIAL HISTORY: Presently nonsmoker, nondrinker. FAMILY HISTORY: No significant cardiopulmonary disease reported. MEDICATIONS: She is on Colace 100 mg twice a day, Coreg 3.125 mg twice a day, Ecotrin 81 mg daily, L asix 40 mg daily, Lipitor 40 mg daily, Pepcid 20 mg daily, promethazine DM 5 mL q. 6 hours p.r.n., R obitussin 100 mg q. 4 hours p.r.n., multivitamin 1 tab daily. REVIEW OF SYSTEMS: No headache. Has a stuffy nose, cough, no sputum production. No chest pain, no nausea, no vomiting, no diarrhea, no leg pain or leg swelling. Has right shoulder discomfort, multip le night awakenings. Admits to have snoring, daytime sleepy and tired. PHYSICAL EXAMINATION: GENERAL: Lying in the bed in no acute distress. VITAL SIGNS: Temp is 98, heart rate 72, respiratory rate is 20, blood pressure 123/58, pulse ox 98% on 2L nasal cannula. HEENT: Moist mucous membranes. Crowded airway. NECK: Supple, no JVD. Nasal mucosa is erythematous. LUNGS: Has scattered rhonchi and few wheezing. HEART: S1 and S2. ABDOMEN: Soft, nontender. No organomegaly. EXTREMITIES: There is no edema. NEUROLOGIC: Awake, alert, follows simple commands. LABORATORY DATA: Shows hemoglobin 11.7, hematocrit 34.6, WBC 4.1, platelet is 93. Sodium 139, potas sium 4.2, chloride 107, bicarbonate 25, BUN 34, creatinine 1.2, calcium is 9.1, phosphorus is 3.9, ma gnesium 2.0. AST 31, ALT 34, alkaline phosphatase is 85. ProBNP 1920, albumin is 6.2. Microbiology : Blood cultures have no growth detected. No infiltrate or effusion. IMPRESSION AND PLAN: Chronic obstructive lung disease, cardiac diastolic dysfunction with pulmonary hypertension, may have a sleep apnea syndrome, rheumatoid arthritis, status post fall. Pulmonary poi nt of view: Continue bronchodilators. Add antihistamines, leukotriene inhibitor, nasal steroids. W ill add CPAP 7 cm with humidified air. Fall precaution. Start physical therapy. Thank you and we w ill follow with you. Berenice Whitt MD cc: [phone] TT: 06/17/2016 21:12:56 Confirmation # [id number] Dictation # [id number] ln
[2016-06-17] MEDS: Fluticasone Nasal 50 mcg/Spray NS SCH (21:43)
[2016-06-18] MEDS: Levalbuterol 0.63 MG/3 ML Inhal Soln UD IH SCH ×3 (02:20→13:09)
[2016-06-18 05:37] VITALS: PULSE 65; RESP 20; TEMP 97.4; O2SAT 100
[2016-06-18] MEDS: Multivitamin With Minerals Tab PO SCH (09:40)
[2016-06-18] MEDS: Fluticasone Nasal 50 mcg/Spray NS SCH (09:49)
[2016-06-18] MEDS ORDERED: Enoxaparin 30 mg Syringe SC SCH (10:00)
[2016-06-18 11:37] LABS: ADD MANUAL DIFF? NO
[2016-06-18 11:47] LABS: BASO # 0.01 K/mm3 (0.0-2.0); BASO % 0.2 % (0.0-3.0); EOS # 0.2 (0.0-0.7); EOS % 3.5 % (1.5-5.0); GRAN # 3.09 (1.4-6.5); GRAN % 63.3 % (50.0-68.0); LYMPH # 1.4 (1.2-3.4); LYMPH % 28.1 % (22.0-35.0); MEAN CELL VOLUME 95.5 fL (80.0-105.0); MEAN CORPUSCULAR HEMOGLOBIN 32.1 pg (25.0-35.0); MEAN CORPUSCULAR HGB CONC 33.6 g/dl (31.0-37.0); MEAN PLATELET VOLUME 8.7 fl (7.0-11.0); MONO # 0.2 (0.1-0.6); MONO % 4.9 % (1.0-6.0); PLATELET COUNT 101 10^3/uL (120.0-450.0); RED CELL DISTRIBUTION WIDTH 19.1 % (11.5-14.5); WHITE BLOOD COUNT 4.9 10^3/ul (4.5-11.0)
[2016-06-18 11:54] LABS: CALCIUM 9.6 mg/dL (8.4-10.5); POTASSIUM 4.6 mmol/L (3.6-5.0)
--- NOTE | 2016-06-18 16:54 | PN ---
DATE: 06/18/2016 REASON FOR CONSULTATION AND FOLLOWUP: Dynamic ST-T changes, history of multiple stents, status post cardiac catheterization, nonobstructive coronary artery disease. BRIEF CLINICAL HISTORY: This is an 80-year-old female with past medical history significant for mult iple stents, sick sinus syndrome, permanent pacemaker, syncope, AFib, laryngeal dysfunction/motility disorder, who was admitted with dynamic ST-T changes after a fall and sustained trauma to the right k nee which was replaced a couple of years ago. The patient underwent cardiac catheterization that prema ws nonobstructive coronary artery disease. Denies any chest pain, shortness of breath, any complaint of cough. PHYSICAL EXAMINATION: VITAL SIGNS: Temperature afebrile, heart rate ____, blood pressure 120/70. HEENT: PERRLA. Extraocular muscles intact. NECK: Supple. No carotid bruits. No thyromegaly. CHEST: Clear to auscultation. HEART: S1, S2 regular. ABDOMEN: Soft. EXTREMITIES: Clubbing and cyanosis negative. BLOOD WORKUP: WBC 4.9, hemoglobin 12.____, hematocrit 36, platelet count 101. Chemistry shows sodiu m 140, potassium 4.____, chloride 102, carbon dioxide 31, anion gap of 12, BUN 30, creatinine 1.3. IMPRESSION: Status post cardiac catheterization with nonobstructive coronary artery disease, status post multiple stents, patent stent; history of thrombocytopenia in the past requiring holding Plavix, the patient is again thrombocytopenic; hypertension, hyperlipidemia, chronic obstructive pulmonary d isease exacerbation, chronic cough, laryngeal dysfunction. RECOMMENDATION: Hold Plavix because last sent was more than a year ago and the patient has had throm bocytopenia. Continue baby aspirin, cough medication, adequate cough medication, history of permanen t pacemaker, history of chronic obstructive pulmonary disease. Since the platelets are trending down and stent is more than 1 year old, will hold Plavix, continue baby aspirin. Continue gentle diureti cs. Continue DVT prophylaxis. Will change the Lasix to p.o. from tomorrow. Will give Robitussin co ugh syrup. Will follow with you. Thank you, Dr. England, for providing the opportunity in taking care of this patient. Berenice Maravilla MD cc: [id number] TT: 06/18/2016 16:53:38 Confirmation # [id number] Dictation # [id number] mn
--- NOTE | 2016-06-18 16:55 | PN ---
DATE: 06/18/2016 SUBJECTIVE: The patient is seen lying in bed. She is appearing comfortable. She does not appear to be in any kind of distress. PHYSICAL EXAMINATION: VITAL SIGNS: Blood pressure 120/70, heart rate 65, respiratory rate 20, temperature 97.4. HEENT: Normocephalic, atraumatic. NECK: Supple, no JVD. LUNGS: Bilateral equal air entry, scattered rhonchi. CARDIAC: S1, S2, regular rate and rhythm, no murmur, no rub. ABDOMEN: Soft, nondistended, nontender, bowel sounds present. EXTREMITIES: No lower extremity edema. INTAKE AND OUTPUT: 1140/1175. LABORATORY DATA: WBC 4.9, hemoglobin 12, hematocrit 36, platelets 101. Sodium 140, potassium 4.6, c hloride 101, CO2 of 31, BUN 30, creatinine 1.3, glucose 118. CURRENT MEDICATIONS: Claritin, Colace, Coreg 3.125 b.i.d., Ecotrin, Lasix 40 daily, Lipitor, Lovenox , Pepcid, Phenergan, Robitussin, Singulair. ASSESSMENT AND PLAN: 1. Acute kidney injury, resolved. 2. Underlying chronic kidney disease stage III/IV, stable. 3. Status post fall. 4. Status post cardiac catheterization, nonobstructive coronary artery disease, patent stents. 5. Chronic obstructive pulmonary disease. 6. Hyperlipidemia. PLAN: 1. Stable renal standpoint. 2. No evidence of secondary hyperparathyroidism, phosphorus was normal. 3. No anemia. 4. Continue physical therapy. Amaya Olivera MD cc: [phone] TT: 06/18/2016 16:54:32 Confirmation # [id number] Dictation # [id number] [place]
[2016-06-18 17:28] VITALS: BP 126/76
--- NOTE | 2016-06-18 18:29 | PN ---
DATE: 06/18/2016 REFERRING PHYSICIAN: Dr. England. SUBJECTIVE: She is lying in the bed, feels better, decreased cough, decreased shortness of breath. No nausea, vomiting, diarrhea. No leg pain or leg swelling. Tolerated BiPAP well. OBJECTIVE: GENERAL: No acute distress. VITAL SIGNS: Temperature is 98, heart rate is 65, respiratory rate is 20, blood pressure 120/70, pul se ox 100% on BiPAP. HEENT: Moist mucous membrane. Crowded airway. NECK: Supple, no JVD. Nasal mucosa mildly erythematous. LUNGS: Has a prolonged respiratory phase with some rhonchi. HEART: S1, S2. ABDOMEN: Soft, nontender. No organomegaly. EXTREMITIES: There is no edema. NEUROLOGIC: Awake, alert, follows simple commands. MEDICATIONS: She is on Claritin 10 mg daily, Colace 100 mg twice a day, Coreg 3.125 mg twice a day, Ecotrin 81 mg daily, Flonase 1 spray each nostril twice a day, Lasix 40 mg daily, Lipitor 40 mg daily , Lovenox 30 mg subQ daily, Pepcid 20 mg daily, promethazine DM 5 mL q. 6 hours p.r.n., Robitussin 10 0 mg q. 4 hours p.r.n., Singulair 10 mg daily, multivitamins daily, Xopenex inhaled q. 6 hours. LABORATORY DATA: Shows hemoglobin 12.1, hematocrit 36.0, WBC 4.9, platelet is 101. Sodium 140, pota ssium 4.6, chloride 102, bicarbonate 31, BUN 30, creatinine 1.3, glucose was 118, calcium is 9.6. IMPRESSION AND PLAN: Chronic obstructive lung disease, cardiac diastolic dysfunction with pulmonary hypertension, may have sleep apnea syndrome, rheumatoid arthritis, status post fall, has a chronic co ugh, may have . Pulmonary point of view, doing okay. Keep head elevated at 45 degrees. Encour age BiPAP use. Inhaled bronchodilator, cough suppressant. Gastric prophylaxis. DVT prophylaxis. O ut of bed to chair. Physical therapy. We will follow with you. Berenice Whitt MD cc: [phone] TT: 06/18/2016 18:29:13 Confirmation # [id number] Dictation # [id number] mn
--- NOTE | 2016-06-19 16:57 | PN ---
DATE: 06/17/2016 The patient is status post cardiac catheterization. Status post cardiac cath, she is doing better. She complained of cough, otherwise seems okay. She is weak. Gait is unstable. PHYSICAL EXAMINATION: VITAL SIGNS: Temperature is 98, heart rate 65, blood pressure 155/74, respiration 19, saturation 100 % on room air. HEAD AND NECK: Normal. No JVD, no thyromegaly. CHEST: Clear, good air entry. CARDIAC: First sound, second sound normal. ABDOMEN: Soft, obese, nontender. EXTREMITIES: No edema. NEUROLOGIC: Normal. LABORATORY STUDIES: White count 4.1, hemoglobin 11.7, hematocrit 34.6, platelets 93. Her chemistry is as follows: Sodium 139, potassium 4.2, chloride 107, bicarbonate 25, BUN 34, creatinine 1.2. Stacie er function test is normal. Her proBNP is 1920. IMPRESSION AND PLAN: 1. Acute non-ST elevation myocardial infarction, status post cardiac catheterization, nonobstructive coronary artery disease. Continue medical treatment, beta blockers. 2. Congestive heart failure, chronic diastolic heart failure with acute exacerbation, pulmonary hype rtension. Continue Lasix. 3. Generalized weakness, recurrent falls. The patient will need physical therapy. TCU will be too short for her. She may need at least 3-4 weeks of physical therapy. If she is not better, she may n eed a permanent assisted placement. 4. Hypertension, hypercholesterolemia, history of rheumatoid arthritis, thrombocytopenia, probably r elated to her underlying rheumatoid. Follow up with washing machine loader. Continue current treatment. Forest England MD cc: [phone] TT: 06/19/2016 16:57:00 Confirmation # [id number] Dictation # [id number] en
--- NOTE | 2016-06-19 17:00 | DS ---
The patient doing better. She is going for rehabilitation. No chest pain, no short of breath, mild cough, otherwise stable. PHYSICAL EXAMINATION: VITAL SIGNS: Temperature 97.4, heart rate 65, blood pressure 126/76, respiration 20, saturation 100% . The patient also getting BiPAP at night. HEAD AND NECK: Normal. No JVD. No thyromegaly. CHEST: Clear, good air entry. CARDIAC: First sound, second sound normal. ABDOMEN: Soft, obese, nontender. EXTREMITIES: No edema. NEUROLOGIC: Normal. LABORATORY DATA: White count 4.9, hemoglobin 12.1, hematocrit 36.0, platelets 101. Chemistry: [place] um 140, potassium 4.6, chloride 102, bicarbonate 31, BUN 30, creatinine 1.3, blood sugar 118 and calc ium 9.6. Liver function test is normal. Her proBNP is 1920. That is the day previous. Last BNP 19 20. Cardiac cath shows nonobstructive coronary artery disease. DISCHARGE DIAGNOSES: 1. Acute non-ST elevation myocardial infarction. 2. Nonobstructive coronary artery disease. 3. Chronic diastolic heart failure with acute exacerbations. 4. Hypertension. 5. Hypercholesterolemia. 6. Unsteady gait with severe osteoarthritis -- rheumatoid arthritis. 7. Thrombocytopenia. PLAN: Discharge the patient home on her medications, was reconciled, and she will be going to [facility]. Discussed with the daughter at the bedside about all her meds, explained to her in details. Will follow up at [facility]. Forest England MD cc: [phone] TT: 06/19/2016 16:59:47 en
== END 2016-06-18 20:56 | DRG 280 ==
LOC: ED 14:30 → ERH 18:23 → 2RSO 22:35 → OBSVTOIN 06-15 15:16 → 2RSO 06-16 22:35 → 5RNO 06-18 10:30
PROVIDERS: ADMIT Internal Medicine; ATTEND Internal Medicine
PROC: 4A023N7 Measurement of Cardiac Sampling and Pressure, Left Heart, Percutaneous Approach (ICD-10-PCS; principal; 2016-06-16)
PROC: B211YZZ Fluoroscopy of Multiple Coronary Arteries using Other Contrast (ICD-10-PCS; 2016-06-16)
PROC: B215YZZ Fluoroscopy of Left Heart using Other Contrast (ICD-10-PCS; 2016-06-16)
DX: I21.4 Non-ST elevation (NSTEMI) myocardial infarction (principal); I50.33 Acute on chronic diastolic (congestive) heart failure; R57.9 Shock, unspecified; N18.4 Chronic kidney disease, stage 4 (severe); D69.6 Thrombocytopenia, unspecified; I27.2 Other secondary pulmonary hypertension; N17.9 Acute kidney failure, unspecified; F03.90 Unspecified dementia, unspecified severity, without behavioral disturbance, psychotic disturbance, mood disturbance, and anxiety; I08.3 Combined rheumatic disorders of mitral, aortic and tricuspid valves; I48.0 Paroxysmal atrial fibrillation; I13.0 Hypertensive heart and chronic kidney disease with heart failure and stage 1 through stage 4 chronic kidney disease, or unspecified chronic kidney disease; W01.0XXA Fall on same level from slipping, tripping and stumbling without subsequent striking against object, initial encounter; D53.9 Nutritional anemia, unspecified; E78.00 Pure hypercholesterolemia, unspecified; E78.5 Hyperlipidemia, unspecified; F51.02 Adjustment insomnia; G47.33 Obstructive sleep apnea (adult) (pediatric); G89.29 Other chronic pain; H91.90 Unspecified hearing loss, unspecified ear; I25.10 Atherosclerotic heart disease of native coronary artery without angina pectoris; M06.9 Rheumatoid arthritis, unspecified; J44.9 Chronic obstructive pulmonary disease, unspecified; K21.9 Gastro-esophageal reflux disease without esophagitis; K52.9 Noninfective gastroenteritis and colitis, unspecified; M19.90 Unspecified osteoarthritis, unspecified site; M54.30 Sciatica, unspecified side; R29.6 Repeated falls; Y92.009 Unspecified place in unspecified non-institutional (private) residence as the place of occurrence of the external cause; Y93.01 Activity, walking, marching and hiking; Z79.82 Long term (current) use of aspirin; Z79.899 Other long term (current) drug therapy; Z85.820 Personal history of malignant melanoma of skin; Z86.73 Personal history of transient ischemic attack (TIA), and cerebral infarction without residual deficits; Z87.891 Personal history of nicotine dependence; Z90.49 Acquired absence of other specified parts of digestive tract; Z95.0 Presence of cardiac pacemaker; Z95.5 Presence of coronary angioplasty implant and graft; Z96.653 Presence of artificial knee joint, bilateral; R26.81 Unsteadiness on feet; M51.9 Unspecified thoracic, thoracolumbar and lumbosacral intervertebral disc disorder; M46.82 Other specified inflammatory spondylopathies, cervical region; R55 Syncope and collapse; H26.9 Unspecified cataract; Z98.42 Cataract extraction status, left eye; N28.1 Cyst of kidney, acquired; R32 Unspecified urinary incontinence; F41.9 Anxiety disorder, unspecified; Z88.6 Allergy status to analgesic agent; Z88.1 Allergy status to other antibiotic agents; Z88.5 Allergy status to narcotic agent; Z88.8 Allergy status to other drugs, medicaments and biological substances; Z87.892 Personal history of anaphylaxis; M79.603 Pain in arm, unspecified; M25.559 Pain in unspecified hip; M25.569 Pain in unspecified knee; R42 Dizziness and giddiness; R74.0 Nonspecific elevation of levels of transaminase and lactic acid dehydrogenase [LDH]; R13.13 Dysphagia, pharyngeal phase

== ENCOUNTER 2016-07-03 11:45 | Observation (INO) | payer MEDICARE ==
[2016-07-03 11:45] VITALS: BMI 25.0
[2016-07-03] MEDS ORDERED: Sodium Chloride 0.9% 1,000 ML IV STA (12:06)
--- NOTE | 2016-07-03 12:06 | ED PDOC ---
Arrival/HPI - General Time Seen by Provider: 07/03/16 11:48 Historian: Patient - History of Present Illness Narrative History of Present Illness (Text): 07/03/16 12:04 80 year old female sent to the emergency department by Dr. England for evaluation of right sided abdominal pain. Patient states she is eating normally. Last bowel movement reported yesterday which was normal. Denies nausea , vomiting, hematuria, chest pain, shortness of breath, leg swelling, or other symptoms. Time/Duration: < week Symptom Onset: Gradual Symptom Course: Unchanged Modifying Factors (Text): None Associated Symptoms (Text): None Past Medical History - Provider Review Nursing Documentation Reviewed: Yes - Infectious Disease Hx of Infectious Diseases: None - Tetanus Immunization Tetanus Immunization: Unknown - Past Medical History Past Medical History: No Previous - Cardiac Hx Cardiac Disorders: Yes Hx Congestive Heart Failure: Yes Hx Hypertension: Yes - Pulmonary Hx Chronic Obstructive Pulmonary Disease (COPD): Yes - Neurological HX Cerebrovascular Accident: Yes - HEENT Hx Cataracts: Yes (sx l eye) Hx Deafness: Yes (hearing aid uses left only) Other/Comment: glasses - Renal Hx Renal Disorder: Yes (HX Renal cyst) - Endocrine/Metabolic Hx Endocrine Disorders: No - Hematological/Oncological Hx Blood Transfusions: No Hx Blood Transfusion Reaction: No - Integumentary Other/Comment: red buttocks skin discolorations to arms chest and back, 1cm round dry scab to lle from fal few weeks ago - Musculoskeletal/Rheumatological Hx Falls: Yes - Gastrointestinal Hx Gastrointestinal Disorders: Yes (reflux) Hx Diverticulitis: Yes - Genitourinary/Gynecological Hx Incontinence: Yes (dribbles) Other/Comment: right and left lumpectomy - Psychiatric Hx Psychophysiologic Disorder: Yes Hx Anxiety: Yes Hx Bipolar Disorder: No Hx Depression: No Hx Emotional Abuse: No Hx Hallucinations: No Hx Panic Disorder: No Hx Post Traumatic Stress Disorder: No Hx Psychosis: No Hx Physical Abuse: No Hx Schizophrenia: No Hx Sexual Abuse: No Hx Substance Use: No - Past Surgical History Past Surgical History: Non-Contributing - Surgical History Hx Cholecystectomy: Yes Other/Comment: Back Sx, r knee replacement, r rotator cuff sx, loop recorder 03/21. r& l lumpectomy - Anesthesia Hx Anesthesia Reactions: No Hx Malignant Hyperthermia: No - Suicidal Assessment Feels Threatened In Home Enviroment: No Family/Social History - Physician Review Nursing Documentation Reviewed: Yes Family/Social History: Unknown Family HX Smoking Status: Former Smoker Hx Alcohol Use: No Hx Substance Use: No Hx Substance Use Treatment: No Allergies/Home Meds Allergies/Adverse Reactions: Allergies acetaminophen Allergy (Mild, Verified 07/03/16 12:18) ANAPHYLAXIS codeine Allergy (Mild, Verified 07/03/16 12:18) RASH levofloxacin [From Levaquin] Allergy (Verified 07/03/16 12:18) ANAPHYLAXIS albuterol Adverse Reaction (Verified 07/03/16 12:18) DIZZINESS Review of Systems - Physician Review All systems were reviewed & negative as marked: Yes - Review of Systems Respiratory: absent: SOB Cardiovascular: absent: Chest Pain, Edema Gastrointestinal: Abdominal Pain. absent: Stool Changes, Nausea, Vomiting, Appetite Changes Genitourinary Female: absent: Dysuria, Hematuria Physical Exam Vital Signs Reviewed: Yes Vital Signs Temp Pulse Resp BP Pulse Ox 07/03/16 14:41 74 18 113/90 99 07/03/16 12:20 97.9 F 73 16 166/53 H 95 Temperature: Afebrile Blood Pressure: Normal Pulse: Regular Respiratory Rate: Normal Appearance: Positive for: Well-Appearing, Non-Toxic, Comfortable Pain Distress: None Mental Status: Positive for: Alert and Oriented X 3 - Systems Exam Head: Present: Atraumatic, Normocephalic Pupils: Present: PERRL Extroacular Muscles: Present: EOMI Conjunctiva: Present: Normal Mouth: Present: Moist Mucous Membranes Neck: Present: Normal Range of Motion Respiratory/Chest: Present: Clear to Auscultation, Good Air Exchange. No: Respiratory Distress, Accessory Muscle Use Cardiovascular: Present: Regular Rate and Rhythm, Normal S1, S2. No: Murmurs Abdomen: Present: Normal Bowel Sounds. No: Tenderness, Distention, Peritoneal Signs Back: Present: Normal Inspection Upper Extremity: Present: Normal Inspection. No: Cyanosis, Edema Lower Extremity: Present: Normal Inspection. No: Edema Neurological: Present: GCS=15, CN II-XII Intact, Speech Normal Skin: Present: Warm, Dry, Normal Color. No: Rashes Psychiatric: Present: Alert, Oriented x 3, Normal Insight, Normal Concentration Medical Decision Making ED Course and Treatment: Impression: 80 year old female sent to the emergency department by Dr. England for evaluation of right sided abdominal pain. Differential Diagnosis included but are not limited to: Nonspecific abdominal pain Plan: -- CT Abdomen/Pelvis -- Labs -- Reassess and disposition Prior Visits: Notes and results from previous visits were reviewed. Patient last seen in the ED on 06/14/16 for dizziness and fall, and admitted for CHF, dizziness, hip pain , knee pain, shoulder pain, inability to ambulate due to knee. Progress Notes: PROCEDURE: CT Abdomen and Pelvis with contrast Color Matcher : Tommy Lujan MD IMPRESSION: No acute pathology. - Lab Interpretations Lab Results: 07/03/16 12:45 07/03/16 12:45 Lab Results 07/03/16 13:14: Urine Color Yellow, Urine Appearance Clear, Urine pH 7.0, Ur Specific [place] 1.010, Urine Protein Negative, Urine Glucose (UA) Negative, Urine Ketones Negative, Urine Blood Negative, Urine Nitrate Negative, Urine Bilirubin Negative, Urine Urobilinogen 0.2, Ur Leukocyte Esterase Negative 07/03/16 12:45: WBC 5.5, RBC 3.95, Hgb 13.4, Hct 38.3, MCV 97.0, MCH 33.9, MCHC 35.0, RDW 18.8 H, Plt Count 116 L, MPV 8.6, Gran % 65.8, Lymph % (Auto) 22.8, Spencer % (Auto) 6.7 H, Eos % (Auto) 4.3, Baso % (Auto) 0.4, Gran # 3.64, Lymph # 1.3, Spencer # 0.4, Eos # 0.2, Baso # 0.02, PT 10.6, INR 0.98, APTT 26.9, Sodium 141, Potassium 4.5, Chloride 99, Carbon Dioxide 34 H, Anion Gap 13, BUN 27 H, Creatinine 1.0, Est GFR ( Amer) > 60, Est GFR (Non-Af Amer) 53, Random Glucose 87, Calcium 9.8, Total Bilirubin 0.9, AST 50 H, ALT 46, Alkaline Phosphatase 142 H, Total Protein 7.8, Albumin 3.9, Globulin 3.8, Albumin/ Globulin Ratio 1.0 L, Lipase 310 H - RAD Interpretation Radiology Orders: 07/03/16 12:06 ABD PELVIS PO & IV CONTRAST [CT] Stat - Medication Orders Current Medication Orders: Discontinued Medications Famotidine (Pepcid) 20 mg IVP STAT STA Stop: 07/03/16 12:07 Last Admin: 07/03/16 12:50 Dose: 20 MG IVP Administration Document 07/03/16 12:50 [facility] (Rec: 07/03/16 12:50 [facility] [id number]) Charges for Administration # of IVP Administrations 1 Sodium Chloride (Sodium Chloride 0.9%) 1,000 mls @ 100 mls/hr IV .Q10H STA Stop: 07/03/16 22:05 Last Admin: 07/03/16 12:50 Dose: 100 MLS/HR eMAR Start Stop Document 07/03/16 12:50 [facility] (Rec: 07/03/16 12:50 [facility] [id number]) Intravenous Solution Start Date 07/03/16 Start Time 12:50 Iohexol (Omnipaque 300 100 Ml) Confirm Administered Dose 100 ml IJ .STK-MED ONE Stop: 07/03/16 12:25 ED OBSERVATION Discharge: Yes Date of observation admission: 07/03/16 Time of observation admission: 13:31 - Observation admission statement Patient is being placed in observation because:: abdominal pain - Goals of Observation Goals of observation are:: monitor patient's response to treatments in in the Emergency department - Progress Note Progress Note: 07/03/16 13:31 Patient resting in no acute distress 07/03/16 14:55 On re-evaluation, patient feels better and is in no acute distress. CT negative. Will discharge home. I have discussed the results and plan with the patient, who expresses understanding. Patient in agreement with plan to be discharged home. Patient is stable for discharge. Patient was instructed to follow up with physician or return if symptoms worsen or new concerning symptoms arise. - Scribe Statement The provider has reviewed the documentation as recorded by the Damian Chappell Provider Scribe Attestation: All medical record entries made by the Franibfran were at my direction and personally dictated by me. I have reviewed the chart and agree that the record accurately reflects my personal performance of the history, physical exam, medical decision making, and the department course for this patient. I have also personally directed, reviewed, and agree with the discharge instructions and disposition. Disposition/Present on Arrival - Present on Arrival Any Indicators Present on Arrival: No History of DVT/PE: No History of Uncontrolled Diabetes: No Urinary Catheter: No History Surgical Site Infection Following: None - Disposition Have Diagnosis and Disposition been Completed?: Yes Diagnosis: Abdominal pain Disposition: HOME/ ROUTINE Disposition Time: 14:50 Patient Problems: Current Active Problems Problem Status Diagnosed Anemia, macrocytic Acute Colitis Acute Congestive heart failure (CHF) Acute Coronary arteriosclerosis in [place] artery Acute Dizziness Acute Edema Acute Gastroenteritis Acute Hip pain Acute Inability to ambulate due to knee Acute Knee pain Acute Sciatica Acute Shock Acute Shoulder pain Acute Thrombocytopenia Acute Transaminitis Acute COPD (chronic obstructive pulmonary disease) Chronic Dyslipidemia Chronic Gait instability Chronic Hypertension Chronic Pacemaker Chronic Presence of stent in coronary artery in patient with coronary artery disease Chronic Acute diarrhea Resolved Condition: STABLE
[2016-07-03 12:23] VITALS: TEMP 97.9
[2016-07-03] MEDS ORDERED: Iohexol 300 100 ML IJ ONE ×2 (12:24→14:09)
[2016-07-03 12:46] LABS: ADD MANUAL DIFF? NO
[2016-07-03 13:00] LABS: INR 0.98 (0.93-1.08); PARTIAL THROMBOPLASTIN TIME 26.9 Seconds (23.7-30.8)
[2016-07-03 13:05] LABS: ALKALINE PHOSPHATASE 142 U/L (38-133); ALT/SGPT 46 U/L (7-56); AST/SGOT 50 U/L (15-39); BILIRUBIN,TOTAL 0.9 mg/dL (0.2-1.3); BLOOD UREA NITROGEN 27 mg/dL (7-21); CALCIUM 9.8 mg/dL (8.4-10.5); CARBON DIOXIDE 34 mmol/L (21-33); CHLORIDE 99 mmol/L (98-107); GFR AFRICAN-AMERICAN > 60; GLUCOSE,RANDOM 87 mg/dL (70-110); LIPASE 310 U/L (23-300); POTASSIUM 4.5 mmol/L (3.6-5.0); SODIUM 141 mmol/L (132-148); TOTAL PROTEIN 7.8 g/dL (5.8-8.3)
[2016-07-03 13:27] LABS: URINE BILIRUBIN NEGATIVE (NEGATIVE); URINE BLOOD NEGATIVE (NEGATIVE); URINE GLUCOSE (UA) NEGATIVE (NEGATIVE); URINE KETONE NEGATIVE (NEGATIVE); URINE LEUKOCYTE ESTERASE NEGATIVE Leu/uL (NEGATIVE); URINE PROTEIN NEGATIVE mg/dL (<30 mg/dL); URINE UROBILINOGEN 0.2 E.U./dL (<1 E.U./dL)
[2016-07-03 13:32] LABS: URINE APPEARANCE CLEAR (CLEAR); URINE COLOR YELLOW (YELLOW)
[2016-07-03 14:01] LABS: BASO # 0.02 K/mm3 (0.0-2.0); BASO % 0.4 % (0.0-3.0); EOS # 0.2 (0.0-0.7); EOS % 4.3 % (1.5-5.0); GRAN # 3.64 (1.4-6.5); GRAN % 65.8 % (50.0-68.0); HEMATOCRIT 38.3 % (36.0-48.0); LYMPH # 1.3 (1.2-3.4); LYMPH % 22.8 % (22.0-35.0); MEAN CORPUSCULAR HEMOGLOBIN 33.9 pg (25.0-35.0); MEAN PLATELET VOLUME 8.6 fl (7.0-11.0); MONO # 0.4 (0.1-0.6); MONO % 6.7 % (1.0-6.0); PLATELET COUNT 116 10^3/uL (120.0-450.0); RED CELL DISTRIBUTION WIDTH 18.8 % (11.5-14.5); WHITE BLOOD COUNT 5.5 10^3/ul (4.5-11.0)
[2016-07-03 14:41] VITALS: BP 113/90; PULSE 74; RESP 18; O2SAT 99
--- NOTE | 2016-07-03 14:44 | CT ---
PROCEDURE: CT Abdomen and Pelvis with contrast HISTORY: right sided abdominal pain COMPARISON: 12/01/15. TECHNIQUE: Contrast dose: 100 cc Omnipaque 300 Radiation dose: Total exam DLP = 426 mGy-cm. This CT exam was performed using one or more of the following dose reduction techniques: Automated exposure control, adjustment of the mA and/or kV according to patient size, and/or use of iterative reconstruction technique. FINDINGS: LOWER THORAX: Unremarkable. LIVER: Unremarkable. No gross lesion or ductal dilatation. GALLBLADDER AND BILE DUCTS: Cholecystectomy with extra-hepatic biliary dilation. PANCREAS: Unremarkable. No gross lesion or ductal dilatation. SPLEEN: Unremarkable. ADRENALS: Unremarkable. No mass. KIDNEYS AND URETERS: Bilateral renal cysts. No hydronephrosis. No solid mass. VASCULATURE: Unremarkable. No aortic aneurysm. BOWEL: Extensive colonic diverticulosis. No obstruction. No gross mural thickening. APPENDIX: Normal appendix. PERITONEUM: Unremarkable. No free fluid. No free air. LYMPH NODES: Unremarkable. No enlarged lymph nodes. BLADDER: Unremarkable. REPRODUCTIVE: Unremarkable. BONES: No acute fracture. OTHER FINDINGS: None. IMPRESSION: No acute pathology.
== END 2016-07-03 14:53 | disposition home or self-care (01) ==
LOC: ED 11:45 → EROBSV 13:39
PROVIDERS: ADMIT Emergency Medicine; ATTEND Emergency Medicine
DX: R10.9 Unspecified abdominal pain (principal); I10 Essential (primary) hypertension; K21.9 Gastro-esophageal reflux disease without esophagitis; Z87.891 Personal history of nicotine dependence
CPT/HCPCS: 74177; 80053; 81003; 83690; 85025; 85610; 85730; 87086; 96374; 99282; G0378; J7040; Q9967

== ENCOUNTER 2016-08-21 22:37 | Observation (INO) | payer MEDICARE ==
[2016-08-21 22:41] VITALS: BMI 24.0
--- NOTE | 2016-08-21 22:53 | ED PDOC ---
Arrival/HPI - General Time Seen by Provider: 08/21/16 22:39 Historian: Patient, Family - History of Present Illness Narrative History of Present Illness (Text): 08/21/16 22:52 Darcy Mcguire is an 80 year old female, whose past medical history includes CAD with multiple stents, CHF, COPD, rheumatoid arthritis, hypertension, pacemaker, and GERD, who presents to the Emergency department brought in by EMS complaining of generalized weakness. Patient states 1 hour prior to arrival she began feeling weak and and was unable to get out of bed on her own secondary. Patient notes she also had mid-sternal chest pain. Patient denies any fever, chills, shortness of breath, vomiting, diarrhea, headache, vision changes, or any other complaints. Patient reports occasional cough. Patient also reports she developed a sty to the right eye over the past 2-3 days. PMD: Dr. Juli Nunez Time/Duration: 1 hour Symptom Onset: Gradual Symptom Course: Unchanged Activities at Onset: Rest, Light Context: Home Past Medical History - Provider Review Nursing Documentation Reviewed: Yes - Infectious Disease Hx of Infectious Diseases: None - Tetanus Immunization Tetanus Immunization: Unknown - Past Medical History Past Medical History: No Previous - Cardiac Hx Cardiac Disorders: Yes Hx Congestive Heart Failure: Yes - Pulmonary Hx Chronic Obstructive Pulmonary Disease (COPD): Yes - Neurological HX Cerebrovascular Accident: Yes - HEENT Hx HEENT Disorder: Yes - Renal Hx Renal Disorder: Yes (HX Renal cyst) - Endocrine/Metabolic Hx Endocrine Disorders: No - Hematological/Oncological Hx Blood Disorders: No - Integumentary Hx Dermatological Disorder: No - Musculoskeletal/Rheumatological Hx Musculoskeletal Disorders: Yes Hx Falls: Yes Other/Comment: cellulitis - Gastrointestinal Hx Gastrointestinal Disorders: Yes (reflux) Hx Diverticulitis: Yes - Genitourinary/Gynecological Hx Genitourinary Disorders: Yes Hx Incontinence: Yes (dribbles) - Psychiatric Hx Psychophysiologic Disorder: Yes Hx Anxiety: Yes Hx Bipolar Disorder: No Hx Depression: No Hx Emotional Abuse: No Hx Hallucinations: No Hx Panic Disorder: No Hx Post Traumatic Stress Disorder: No Hx Psychosis: No Hx Physical Abuse: No Hx Schizophrenia: No Hx Sexual Abuse: No Hx Substance Use: No - Past Surgical History Past Surgical History: Non-Contributing - Surgical History Other/Comment: Back Sx, r knee replacement, r rotator cuff sx, loop recorder 03/21. r& l lumpectomy - Anesthesia Hx Anesthesia Reactions: No Hx Malignant Hyperthermia: No - Suicidal Assessment Feels Threatened In Home Enviroment: No Family/Social History - Physician Review Nursing Documentation Reviewed: Yes Family/Social History: No Known Family HX Smoking Status: Former Smoker Hx Alcohol Use: No Hx Substance Use: No Hx Substance Use Treatment: No Allergies/Home Meds Allergies/Adverse Reactions: Allergies acetaminophen Allergy (Mild, Verified 08/21/16 22:41) ANAPHYLAXIS codeine Allergy (Mild, Verified 08/21/16 22:41) RASH Iodinated Contrast Media - Oral and Allergy (Verified 08/21/16 22:42) SHORTNESS OF BREATH levofloxacin [From Levaquin] Allergy (Verified 08/21/16 22:41) ANAPHYLAXIS albuterol Adverse Reaction (Verified 08/21/16 22:41) DIZZINESS Review of Systems - Physician Review All systems were reviewed & negative as marked: Yes - Review of Systems Constitutional: Other (+generalized weakness). absent: Fevers Eyes: Normal ENT: Normal Respiratory: Cough. absent: SOB Cardiovascular: Chest Pain Gastrointestinal: Normal. absent: Abdominal Pain, Diarrhea, Nausea, Vomiting Genitourinary Female: Normal Musculoskeletal: Normal. absent: Back Pain, Neck Pain Skin: Normal Neurological: Normal. absent: Headache, Dizziness Endocrine: Normal Hemo/Lymphatic: Normal Psychiatric: Normal Physical Exam Vital Signs Reviewed: Yes Vital Signs Temp Pulse Resp BP Pulse Ox 08/21/16 22:47 97.6 F 78 18 175/109 H 96 08/21/16 22:46 97.6 F 78 16 175/109 H 96 Temperature: Afebrile Blood Pressure: Hypertensive Pulse: Regular Respiratory Rate: Normal Appearance: Positive for: Well-Appearing, Non-Toxic, Comfortable Pain Distress: None Mental Status: Positive for: Alert and Oriented X 3 - Systems Exam Head: Present: Atraumatic, Normocephalic, Other (Right eye sty) Pupils: Present: PERRL Extroacular Muscles: Present: EOMI Conjunctiva: Present: Normal Mouth: Present: Moist Mucous Membranes Neck: Present: Normal Range of Motion Respiratory/Chest: Present: Clear to Auscultation, Good Air Exchange. No: Respiratory Distress, Accessory Muscle Use Cardiovascular: Present: Regular Rate and Rhythm, Normal S1, S2. No: Murmurs Abdomen: Present: Normal Bowel Sounds. No: Tenderness, Distention, Peritoneal Signs Upper Extremity: Present: Normal Inspection. No: Cyanosis, Edema Lower Extremity: Present: Normal Inspection. No: Edema Neurological: Present: GCS=15, CN II-XII Intact, Speech Normal Skin: Present: Warm, Dry, Normal Color. No: Rashes Psychiatric: Present: Alert, Oriented x 3, Normal Insight, Normal Concentration Medical Decision Making ED Course and Treatment: 08/21/16 22:52 Impression: 80 year old female presents for weakness and chest pain. Plan: -- EKG -- Chest X-ray -- Labs, cardiac enzymes -- UA -- Reassess and disposition Prior Visits: Notes and results from previous visits were reviewed. Progress Notes: 08/21/16 23:11 Reviewed EKG, paced rhythm at 66 bpm. 08/21/16 23:15 Chest X-ray shows no acute disease, as read by me. 08/22/16 00:[address] Nunez, who is aware and agrees with plans. Accepts pt in to his service. Pt will go to Telemetry observation for chest pain/weakness. Requests Dr. Maravilla on consult. Pt and family agreeable with plan. 08/22/16 01:29 noted recent cath with 50% mid lad - Lab Interpretations Lab Results: 08/21/16 23:17 08/21/16 23:17 Lab Results 08/21/16 23:17: Sodium 141, Potassium 4.0, Chloride 108 H, Carbon Dioxide 26, Anion Gap 11, BUN 26 H, Creatinine 1.1, Est GFR ( Amer) 58, Est GFR (Non- Af Amer) 48, Random Glucose 87, Calcium 9.6, Magnesium 2.2, Total Bilirubin 1.9 H, AST 34, ALT 37, Alkaline Phosphatase 101, Lactate Dehydrogenase 469, Total Creatine Kinase 49, Troponin I < 0.01 D, Total Protein 6.7, Albumin 3.7, Globulin 3.0, Albumin/Globulin Ratio 1.2 08/21/16 23:17: PT 11.9 H, INR 1.10 H, APTT 25.9 08/21/16 23:17: WBC 5.1, RBC 4.21, Hgb 13.0, Hct 39.5, MCV 93.8, MCH 30.9, MCHC 32.9, RDW 16.2 H, Plt Count 116 L, MPV 9.2, Gran % 53.0, Lymph % (Auto) 37.5 H, [place] % (Auto) 6.3 H, Eos % (Auto) 3.0, Baso % (Auto) 0.2, Gran # 2.69, Lymph # 1.9, [place] # 0.3, Eos # 0.2, Baso # 0.01 I have reviewed the lab results: Yes - RAD Interpretation Radiology Orders: 08/21/16 22:52 CHEST PORTABLE [RAD] Stat [place] Worker: ED Physician - EKG Interpretation Interpreted by ED Physician: Yes Type: 12 lead EKG - Medication Orders Current Medication Orders: Discontinued Medications Aspirin (Aspirin) 325 mg PO STAT STA Stop: 08/22/16 00:59 - Scribe Statement The provider has reviewed the documentation as recorded by the Damian Morel Provider Attestation: All medical record entries made by the Damian were at my direction and personally dictated by me. I have reviewed the chart and agree that the record accurately reflects my personal performance of the history, physical exam, medical decision making, and the department course for this patient. I have also personally directed, reviewed, and agree with the discharge instructions and disposition. Disposition/Present on Arrival - Present on Arrival Any Indicators Present on Arrival: No History of DVT/PE: No History of Uncontrolled Diabetes: No Urinary Catheter: No History of Decub. Ulcer: No History Surgical Site Infection Following: None - Disposition Have Diagnosis and Disposition been Completed?: Yes Diagnosis: Chest pain, Weakness Disposition: HOSPITALIZED Disposition Time: 01:00 Condition: STABLE
[2016-08-21 23:43] LABS: ADD MANUAL DIFF? NO
[2016-08-22 00:05] LABS: INR 1.1 (0.93-1.08); PARTIAL THROMBOPLASTIN TIME 25.9 Seconds (23.7-30.8)
[2016-08-22 00:15] LABS: ALB/GLOB RATIO 1.2 (1.1-1.8); ALKALINE PHOSPHATASE 101 U/L (38-133); ALT/SGPT 37 U/L (7-56); AST/SGOT 34 U/L (15-39); BILIRUBIN,TOTAL 1.9 mg/dL (0.2-1.3); BLOOD UREA NITROGEN 26 mg/dL (7-21); CALCIUM 9.6 mg/dL (8.4-10.5); CARBON DIOXIDE 26 mmol/L (21-33); CHLORIDE 108 mmol/L (98-107); GFR AFRICAN-AMERICAN 58; GLUCOSE,RANDOM 87 mg/dL (70-110); MAGNESIUM 2.2 mg/dL (1.7-2.2); SODIUM 141 mmol/L (132-148); TOTAL PROTEIN 6.7 g/dL (5.8-8.3)
[2016-08-22 00:27] LABS: TROPONIN I < 0.01 ng/mL
[2016-08-22 00:53] LABS: BASO # 0.01 K/mm3 (0.0-2.0); BASO % 0.2 % (0.0-3.0); EOS # 0.2 (0.0-0.7); GRAN # 2.69 (1.4-6.5); HEMATOCRIT 39.5 % (36.0-48.0); LYMPH # 1.9 (1.2-3.4); LYMPH % 37.5 % (22.0-35.0); MEAN CELL VOLUME 93.8 fL (80.0-105.0); MEAN CORPUSCULAR HEMOGLOBIN 30.9 pg (25.0-35.0); MEAN CORPUSCULAR HGB CONC 32.9 g/dl (31.0-37.0); MEAN PLATELET VOLUME 9.2 fl (7.0-11.0); MONO # 0.3 (0.1-0.6); MONO % 6.3 % (1.0-6.0); PLATELET COUNT 116 10^3/uL (120.0-450.0); RED CELL DISTRIBUTION WIDTH 16.2 % (11.5-14.5); WHITE BLOOD COUNT 5.1 10^3/ul (4.5-11.0)
[2016-08-22 06:22] VITALS: O2SAT 98
--- NOTE | 2016-08-22 10:10 | RAD ---
HISTORY: cp COMPARISON: 06/14/2016 FINDINGS: LUNGS: No active pulmonary disease. PLEURA: No significant pleural effusion identified, no pneumothorax apparent. CARDIOVASCULAR: Normal. OSSEOUS STRUCTURES: No significant abnormalities. VISUALIZED UPPER ABDOMEN: Normal. OTHER FINDINGS: Single lead pacemaker IMPRESSION: No active disease.
--- NOTE | 2016-08-22 11:05 | CARD ---
APPROVED REPORT EKG Measurement Heart [id number] <Conclusion> Electronic ventricular pacemaker: 100% V. Paced with one PVC
[2016-08-22 12:13] VITALS: RESP 18; TEMP 98
[2016-08-22] MEDS: Levalbuterol 0.63 MG/3 ML Inhal Soln UD IH SCH ×2 (16:05→19:22)
--- NOTE | 2016-08-22 17:35 | HP ---
HISTORY OF PRESENT ILLNESS: The patient is an 80-year-old female with a history of coronary artery d isease status post multiple stent placements by Dr. Maravilla in the past, who presented to the Emergency Room on 08/21/2016 with generalized weakness and precordial and epigastric discomfort, which was nonr adiating. There was no diaphoresis, no nausea, no vomiting. The patient is admitted to the telemetr y unit for further observation and management. PAST MEDICAL HISTORY: Includes coronary artery disease status post stent placements x 5, hypertensio n, hypertensive cardiovascular disease and history of congestive heart failure, obstructive sleep nuclear worker technician ea, COPD and asthma, gastroesophageal reflux disease, mild chronic kidney disease, hypercholesterolem ia, and rheumatoid arthritis. PAST SURGICAL HISTORY: The patient is status post pacemaker placement. She is status post right tot al knee replacement and status post cholecystectomy. CURRENT MEDICATIONS: Include Plavix 75 mg daily, Pepcid 20 mg daily, Coreg 12.5 mg twice daily, mult ivitamin, Lipitor 40 mg daily, Colace 100 mg twice daily, Lasix 40 mg daily, Ecotrin 81 mg daily, aml odipine 2.5 mg daily, Breo-Ellipta 100/25 one inhalation daily. ALLERGIES: THE PATIENT REPORTS ALLERGIES TO PERCOCET, ACETAMINOPHEN, CODEINE, QUINOLONES and ALBUTER OL. SOCIAL HISTORY: The patient has a history of tobacco use, quit in 1974. There is no history of drug use. FAMILY HISTORY: Noncontributory. REVIEW OF SYSTEMS: The patient denies diarrhea, headache, weakness, fainting spells, dizziness. She denies rash or jaundice. The patient had cardiac catheterization on 06/15/2016, which showed nonobs tructive coronary disease. PHYSICAL EXAMINATION: GENERAL: The patient is a well-developed female in no acute distress. VITAL SIGNS: Blood pressure 105/78, pulse 63, temperature 97.8, respiratory rate 19. HEENT: Head is normocephalic, atraumatic. Pupils equal, round, reactive to light. Extraocular mov ements intact. NECK: Supple. No thyromegaly, no carotid bruit. LUNGS: Clear. HEART: Regular rate and rhythm. There is a permanent pacemaker in the left chest wall. ABDOMEN: Soft, nontender, bowel sounds are normoactive. EXTREMITIES: Without cyanosis, clubbing or edema. There is a healed surgical scar of the right knee . NEUROLOGIC: The patient is awake and oriented x 3 without focal sensory or motor deficits. There is mild sensorineural hearing loss bilaterally. SKIN: Warm and dry. LABORATORY DATA: WBC is 5.1, hemoglobin 13.0, hematocrit 39.5. Sodium 141, potassium 4.0, chloride 108, CO2 26, BUN 26, creatinine 1.1, glucose 87. Troponin is less than 0.01. Chest x-ray shows no a ctive disease. IMPRESSION: 1. Chest pain, possibly atypical. 2. Coronary artery disease status post multiple stent placements. 3. Hypertension, hypertensive cardiovascular disease, history of congestive heart failure. 4. Chronic obstructive pulmonary disease and asthma. 5. Chronic kidney disease. 6. Hypercholesterolemia. 7. Rheumatoid arthritis. 8. Gastroesophageal reflux disease. 9. Status post permanent pacemaker placement. PLAN: We will obtain cardiology consult from Dr. Osman/Taiwo, monitor on telemetry, repeat troponin levels, social work for discharge planning. Wilmer Nunez JD, MD cc: [id number] TT: 08/22/2016 17:34:54 ln
[2016-08-22 19:15] VITALS: BP 134/60; PULSE 64
--- NOTE | 2016-08-22 20:26 | CON ---
DATE: 08/22/2016 TYPE OF DICTATION: Progress note. REASON FOR CONSULTATION: Followup cardiac evaluation, history of AICD, history of multiple stents, history of pacemaker, admitted with 3 episodes of fell down and generalized weakness. BRIEF CLINICAL HISTORY: This is an 80-year-old female with a past medical history significant for mu ltiple recent coronary artery disease, paroxysmal atrial fibrillation, chronic obstructive pulmonary disease, history of pharyngeal dysphagia, sick sinus syndrome with permanent pacemaker, admitted donte use she tried to get up and 3 times she fell down backward and since then she developed epigastric pa in so came to the Emergency Room feeling generalized weakness. PAST MEDICAL HISTORY: Significant for sick sinus syndrome, status post permanent pacemaker which was upgraded after loop recorder found to be 6-second pause, history of multiple stents, Previous cardi ac workup as follows: The patient had echocardiogram on 05/27/2015 that shows LV function normal, mi ld aortic stenosis, trace to mild mitral regurgitation, mild tricuspid regurgitation. Last stress te st 11/18/2015 shows no reversible ischemia. The patient's last admission 06/15/2016 showed significa nt T inversion which was new, so the patient underwent cardiac catheterization on 06/16/2016 that prema wed nonobstructive coronary artery disease limited to proximal LAD 55% to 60%; all previous patent st ent patent in LAD, circumflex and RCA were patent; preserved LV function, ejection fraction 55%. EDP was in the range of 15 dated 06/16/2016. History of chronic obstructive pulmonary disease. REVIEW OF SYSTEMS: As per HPI. PHYSICAL EXAMINATION: VITAL SIGNS: Temperature afebrile, heart rate 65, blood pressure 105/78. HEENT: PERRLA. Extraocular muscles intact. NECK: Supple. No carotid bruit. No thyromegaly. CHEST: Clear to auscultation. HEART: S1, S2, regular. ABDOMEN: Soft. EXTREMITIES: Clubbing and cyanosis negative. LABORATORY DATA: Blood workup as follows: WBC 5.1, hemoglobin 13, hematocrit 39.5, platelet count 1 16. Chemistry shows sodium 141, potassium 4, chloride 108, carbon dioxide 26, anion gap of 11, BUN 2 6, creatinine 1.1. Troponin 0.01. IMPRESSION: No evidence of acute myocardial infarction, status post fall and generalized weakness, history of coronary artery disease, status post recent catheterization on 06/16/2016 with patent sten t of the LAD and circumflex and RCA, preserved left ventricular function and ejection fraction 55% to 60%; EDP was in the range of the range of 15. Medical treatment recommended. Status post fall and needs gait training. History of COPD, history of pharyngeal dysphagia, history of sick sinus syndrom e, status post permanent pacemaker, preserved left ventricular function. Last echo dated 05/27/2015 shows mild aortic stenosis, trace to mild mitral regurgitation, mild tricuspid regurgitation. Last s tress 11/18/2015 negative. RECOMMENDATION: Continue gait training orthostatic hypotension. We will discontinue telemetry . Thank you, Dr. Nunez, for providing the opportunity in taking care of the patient. Berenice Maravilla MD cc: [id number] TT: 08/22/2016 20:25:19 Confirmation # [id number] Dictation # [id number] ln
--- NOTE | 2016-08-23 17:24 | DS ---
HOSPITAL COURSE: The patient is an 80-year-old female admitted through the Emergency Department on 0 08/22/2016 with chest and epigastric discomfort. Serial EKG and cardiac enzymes were negative for acu te myocardial infarction. The patient was seen by cardiology, Dr. Maravilla, who discontinued telemetry. The patient was discharged to home in stable condition on 08/22/2016. Physical examination and valentin l signs are as per admission history and physical dictated 08/22/2016. The patient will be followed in the office in the next 1-2 weeks. The patient was discharged on the medications listed on the adm ission history and physical. Wilmer Nunez JD, MD cc: [id number] TT: 08/23/2016 17:22:59 ne
== END 2016-08-22 21:04 | disposition home or self-care (01) ==
LOC: ED 22:37 → ERH 08-22 00:59 → 2RSO 08-22 03:13
PROVIDERS: ADMIT Internal Medicine; ATTEND Internal Medicine
DX: R07.9 Chest pain, unspecified (principal); I25.10 Atherosclerotic heart disease of native coronary artery without angina pectoris; N18.2 Chronic kidney disease, stage 2 (mild); I50.9 Heart failure, unspecified; I13.0 Hypertensive heart and chronic kidney disease with heart failure and stage 1 through stage 4 chronic kidney disease, or unspecified chronic kidney disease; J44.9 Chronic obstructive pulmonary disease, unspecified; K21.9 Gastro-esophageal reflux disease without esophagitis; M06.9 Rheumatoid arthritis, unspecified; E78.00 Pure hypercholesterolemia, unspecified; I48.0 Paroxysmal atrial fibrillation; I49.5 Sick sinus syndrome; R13.13 Dysphagia, pharyngeal phase; G47.33 Obstructive sleep apnea (adult) (pediatric); Z95.810 Presence of automatic (implantable) cardiac defibrillator; Z95.5 Presence of coronary angioplasty implant and graft; Z96.651 Presence of right artificial knee joint; Z90.49 Acquired absence of other specified parts of digestive tract; Z87.891 Personal history of nicotine dependence
CPT/HCPCS: 36415; 71010; 80053; 82550; 83615; 83735; 84484; 85025; 85610; 85730; 93005; 99285; G0378

== ENCOUNTER 2017-02-21 10:30 | Day surgery (SDC) | payer MEDICARE ==
[2017-02-21 11:54] VITALS: BMI 24.0
[2017-02-21] MEDS ORDERED: Sodium Chloride 0.9% 1,000 ML IV SCH ×2 (12:47→13:00)
[2017-02-21 13:58] VITALS: BP 154/85; PULSE 70; RESP 18; TEMP 87; O2SAT 96
== END 2017-02-21 14:46 | disposition home or self-care (01) ==
LOC: ENDO 10:30
PROVIDERS: ATTEND Internal Medicine Gastroenterology
DX: K57.30 Diverticulosis of large intestine without perforation or abscess without bleeding (principal); K64.8 Other hemorrhoids; K56.2 Volvulus; J44.9 Chronic obstructive pulmonary disease, unspecified; I25.10 Atherosclerotic heart disease of native coronary artery without angina pectoris; Z98.61 Coronary angioplasty status
CPT/HCPCS: 45378; J7040

== ENCOUNTER 2017-05-12 06:45 | Emergency (ER) | payer MEDICARE ==
[2017-05-12 06:50] VITALS: BMI 21.2
[2017-05-12 07:01] VITALS: RESP 18; TEMP 97.6
--- NOTE | 2017-05-12 08:03 | ED PDOC ---
Arrival/HPI - General Chief Complaint: GI Problem Time Seen by Provider: 05/12/17 07:17 Historian: Patient - History of Present Illness Narrative History of Present Illness (Text): 05/12/17 07:59 An 81 year old female, whose past medical history includes CAD with multiple stents, COPD, rheumatoid arthritis, hypertension, CHF, pacemaker, GERD, and Dementia, presents to the emergency department complaining of vomiting, frequent bowel movements and urination. Patient reports symptoms developed after drinking almost half of cough syrup medicine bottle this morning. Patient lives at home and has a visiting nurse. Notes right sided abdominal pain, headache and left breast pain, which patient states are chronic and she's had them for a long time. Reports no new pain in the last two days. Patient denies any other complaints at this time. PMD: Dr. England Symptom Onset: Sudden Symptom Course: Unchanged Activities at Onset: Rest Context: Home Past Medical History - Provider Review Nursing Documentation Reviewed: Yes - Infectious Disease Hx of Infectious Diseases: None - Tetanus Immunization Tetanus Immunization: Unknown - Past Medical History Past Medical History: No Previous - Cardiac Hx Pacemaker: Yes - Pulmonary Hx Chronic Obstructive Pulmonary Disease (COPD): Yes - Neurological Hx Dementia: Yes Hx Paralysis: No - HEENT Hx HEENT Disorder: Yes - Renal Hx Renal Disorder: Yes (HX Renal cyst) - Endocrine/Metabolic Hx Endocrine Disorders: No - Hematological/Oncological Hx Blood Transfusions: No Hx Blood Transfusion Reaction: No - Integumentary Hx Dermatological Disorder: No - Musculoskeletal/Rheumatological Hx Musculoskeletal Disorders: Yes - Gastrointestinal Hx Gastrointestinal Disorders: Yes (reflux) Hx Diverticulitis: Yes - Genitourinary/Gynecological Hx Genitourinary Disorders: Yes Hx Incontinence: Yes (dribbles) - Psychiatric Hx Emotional Abuse: No Hx Physical Abuse: No Hx Substance Use: No - Past Surgical History Past Surgical History: Non-Contributing - Surgical History Other/Comment: Back Sx, r knee replacement, r rotator cuff sx, loop recorder 03/21. r& l lumpectomy - Anesthesia Hx Anesthesia Reactions: No Hx Malignant Hyperthermia: No - Suicidal Assessment Feels Threatened In Home Enviroment: No Family/Social History - Physician Review Nursing Documentation Reviewed: Yes Family/Social History: No Known Family HX Smoking Status: Former Smoker Hx Alcohol Use: No Hx Substance Use: No Hx Substance Use Treatment: No Allergies/Home Meds Allergies/Adverse Reactions: Allergies codeine Allergy (Mild, Verified 08/21/16 22:41) RASH Iodinated Contrast- Oral and IV Dye Allergy (Verified 08/21/16 22:42) SHORTNESS OF BREATH levofloxacin [From Levaquin] Allergy (Verified 08/21/16 22:41) ANAPHYLAXIS albuterol Adverse Reaction (Verified 08/21/16 22:41) DIZZINESS Review of Systems - Physician Review All systems were reviewed & negative as marked: Yes - Review of Systems Cardiovascular: absent: Chest Pain Musculoskeletal: absent: Back Pain Physical Exam - Physical Exam Narrative Physical Exam (Text): 05/12/17 07:59 Constitutional: No acute distress. Head: Normocephalic. Atraumatic. Eyes: PERRL. s/p b/l cataracts surgery. ENT: Moist mucous membranes. Neck: Supple. Cardiovascular: Regular rate. Chest: No tenderness. Respiratory: Clear to auscultation bilaterally. GI: Soft. Nontender. Nondistended. Back: No CVA tenderness. Musculoskeletal: No tenderness or swelling of extremities. Skin: No rash. Neurologic: Alert, no focal deficit. Vital Signs Reviewed: Yes Vital Signs Temp Pulse Resp BP Pulse Ox 05/12/17 07:00 97.6 F 72 18 137/88 96 Appearance: Positive for: Well-Appearing, Non-Toxic, Comfortable Pain Distress: None Mental Status: Positive for: Alert and Oriented X 3 Medical Decision Making ED Course and Treatment: 05/12/17 07:58 Impression: An 81 year old female with vomiting, frequent bowel movements and urination. Plan: -- EKG -- labs -- Urinalysis -- Zofran -- Reassess and disposition Prior Visits: Notes and results from previous visits were reviewed. Patient was last seen in the emergency department on 08/22/16 for evaluation of generalized weakness. Progress Notes: 05/12/17 08:34 EKG: Ordered, reviewed, and independently interpreted the EKG. Rate : 65 BPM Rhythm : ventricularly paced 05/12/17 11:00 Patient in no distress, states feels better. vat packer/friend at bedside. No vomiting. Labs unremarkable. Will discharge home, f/u PMD, return to ED for worsening pain, fever, vomiting, weakness, or any other problem. - Lab Interpretations Lab Results: 05/12/17 07:00 05/12/17 07:00 Lab Results 05/12/17 10:13: Urine Color Yellow, Urine Appearance Clear, Urine pH 6.0, Ur Specific [place] 1.025, Urine Protein 100 H, Urine Glucose (UA) Negative, Urine Ketones Trace H, Urine Blood Negative, Urine Nitrate Negative, Urine Bilirubin Negative, Urine Urobilinogen 0.2, Ur Leukocyte Esterase Negative, Urine RBC Negative, Urine WBC Negative, Ur Epithelial Cells 0 - 2, Hyaline Casts 0 - 2 05/12/17 07:00: Sodium 146, Potassium 3.5 L, Chloride 107, Carbon Dioxide 26, Anion Gap 17, BUN 22 H, Creatinine 1.1, Est GFR ( Amer) 57, Est GFR (Non- Af Amer) 47, Random Glucose 142 H, Calcium 10.4, Total Bilirubin 1.8 H, AST 50 H , ALT 49, Alkaline Phosphatase 153 H, Total Protein 7.7, Albumin 4.5, Globulin 3.2, Albumin/Globulin Ratio 1.4, Lipase 367 H 05/12/17 07:00: WBC 6.5, RBC 4.22, Hgb 16.0, Hct 43.8, MCV 103.8, MCH 37.9 H, MCHC 36.5, RDW 19.6 H, Plt Count 78 L, MPV 9.8, Gran % 76.7 H, Lymph % (Auto) 15.7 L, [place] % (Auto) 4.0, Eos % (Auto) 3.1, Baso % (Auto) 0.5, Gran # 4.99, Lymph # (Auto) 1.0 L, [place] # (Auto) 0.3, Eos # (Auto) 0.2, Baso # (Auto) 0.03 I have reviewed the lab results: Yes - EKG Interpretation Interpreted by ED Physician: Yes Type: 12 lead EKG - Medication Orders Current Medication Orders: Discontinued Medications Ondansetron HCl (Zofran Inj) 4 mg IVP STAT STA Stop: 05/12/17 07:41 Last Admin: 05/12/17 08:20 Dose: 4 mg IVP Administration Document 05/12/17 08:20 [facility] (Rec: 05/12/17 08:21 [facility] [id number]) Charges for Administration # of IVP Administrations 1 - Scribe Statement The provider has reviewed the documentation as recorded by the Scribe Belqes Gillian Provider Damian Attestation: All medical record entries made by the Franibfran were at my direction and personally dictated by me. I have reviewed the chart and agree that the record accurately reflects my personal performance of the history, physical exam, medical decision making, and the department course for this patient. I have also personally directed, reviewed, and agree with the discharge instructions and disposition. Disposition/Present on Arrival - Present on Arrival Any Indicators Present on Arrival: No History of DVT/PE: No History of Uncontrolled Diabetes: No Urinary Catheter: No History of Decub. Ulcer: No History Surgical Site Infection Following: Orthopedic Procedures - Disposition Have Diagnosis and Disposition been Completed?: Yes Diagnosis: Vomiting Disposition: HOME/ ROUTINE Disposition Time: 10:53 Patient Plan: Discharge Condition: STABLE Discharge Instructions (ExitCare): Nausea and Vomiting, Adult Prescriptions: Ondansetron ODT [Zofran ODT] 4 mg PO Q8 #12 odt Referrals: Forest England MD [Primary Care Provider] - Follow up with primary Forms: [employer] (Macedonian)
[2017-05-12 08:25] LABS: ALB/GLOB RATIO 1.4 (1.1-1.8); ALBUMIN 4.5 g/dL (3.0-4.8); CALCIUM 10.4 mg/dL (8.4-10.5)
[2017-05-12 08:44] LABS: BASO # 0.03 K/mm3 (0.0-2.0); BASO % 0.5 % (0.0-3.0); EOS # 0.2 (0.0-0.7); EOS % 3.1 % (1.5-5.0); GRAN # 4.99 (1.4-6.5); GRAN % 76.7 % (50.0-68.0); LYMPH % 15.7 % (22.0-35.0); MEAN CELL VOLUME 103.8 fl (80.0-105.0); MEAN CORPUSCULAR HEMOGLOBIN 37.9 pg (25.0-35.0); MEAN CORPUSCULAR HGB CONC 36.5 g/dl (31.0-37.0); MEAN PLATELET VOLUME 9.8 fl (7.0-11.0); MONO # 0.3 (0.1-0.6); RBC 4.22 10^6/uL (3.5-6.1); RED CELL DISTRIBUTION WIDTH 19.6 % (11.5-14.5); WHITE BLOOD COUNT 6.5 10^3/ul (4.5-11.0)
--- NOTE | 2017-05-12 09:45 | CARD ---
APPROVED REPORT EKG Measurement Heart [id number] <Conclusion> Electronic ventricular pacemaker
[2017-05-12 10:16] LABS: URINE BILIRUBIN NEGATIVE (NEGATIVE); URINE BLOOD NEGATIVE (NEGATIVE); URINE GLUCOSE (UA) NEGATIVE (NEGATIVE); URINE LEUKOCYTE ESTERASE NEGATIVE Leu/uL (NEGATIVE); URINE NITRATE NEGATIVE (NEGATIVE); URINE PROTEIN 100 mg/dL (<30 mg/dL); URINE UROBILINOGEN 0.2 E.U./dL (<1 E.U./dL)
[2017-05-12 10:17] LABS: URINE APPEARANCE CLEAR (CLEAR); URINE COLOR YELLOW (YELLOW)
[2017-05-12 10:23] LABS: URINE EPITHELIAL CELLS 0 - 2 /hpf (0-5); URINE HYALINE CAST 0 - 2 /hpf; URINE RBC NEGATIVE /hpf (0-2); URINE WBC NEGATIVE /hpf (0-6)
[2017-05-12 11:33] VITALS: O2SAT 97
[2017-05-12 11:35] VITALS: BP 140/85; PULSE 70
== END 2017-05-12 11:35 | disposition home or self-care (01) ==
LOC: ED 06:45
DX: R11.10 Vomiting, unspecified (principal); M06.9 Rheumatoid arthritis, unspecified; I25.10 Atherosclerotic heart disease of native coronary artery without angina pectoris; I50.9 Heart failure, unspecified; I10 Essential (primary) hypertension; Z87.891 Personal history of nicotine dependence; Z95.0 Presence of cardiac pacemaker
CPT/HCPCS: 80053; 81001; 83690; 85025; 87086; 93005; 96374; 99284; J2405

== ENCOUNTER 2017-07-04 08:28 | Day surgery (SDC) | payer MEDICARE ==
[2017-07-04] MEDS ORDERED: Propofol 10 mg/ml Inj (20 ML) ONE (10:38)
[2017-07-04] MEDS ORDERED: Etomidate 20 mg/10ml Inj IV ONE (10:38)
[2017-07-04] MEDS ORDERED: Sodium Chloride 0.9% 1,000 ML IV SCH (11:00)
[2017-07-04 12:23] VITALS: BP 120/74; PULSE 72; RESP 15; TEMP 97.9; O2SAT 96
== END 2017-07-04 13:35 | disposition home or self-care (01) ==
LOC: ENDO 08:28
PROVIDERS: ATTEND Internal Medicine Gastroenterology
DX: K29.50 Unspecified chronic gastritis without bleeding (principal); K44.9 Diaphragmatic hernia without obstruction or gangrene; I25.10 Atherosclerotic heart disease of native coronary artery without angina pectoris; K21.9 Gastro-esophageal reflux disease without esophagitis; G47.30 Sleep apnea, unspecified; J44.9 Chronic obstructive pulmonary disease, unspecified; E78.00 Pure hypercholesterolemia, unspecified; Z95.5 Presence of coronary angioplasty implant and graft; Z95.0 Presence of cardiac pacemaker; M19.90 Unspecified osteoarthritis, unspecified site; F03.90 Unspecified dementia, unspecified severity, without behavioral disturbance, psychotic disturbance, mood disturbance, and anxiety; Z86.73 Personal history of transient ischemic attack (TIA), and cerebral infarction without residual deficits; M06.9 Rheumatoid arthritis, unspecified; R10.13 Epigastric pain; E78.5 Hyperlipidemia, unspecified; Q43.8 Other specified congenital malformations of intestine; Z79.82 Long term (current) use of aspirin
CPT/HCPCS: 43239; 88305; 88342; J2704; J7040 ×2

== ENCOUNTER 2017-08-14 15:09 | Observation (INO) | payer MEDICARE ==
--- NOTE | 2017-08-14 16:38 | ED PDOC ---
Arrival/HPI - General Chief Complaint: Dizziness/Lightheaded Time Seen by Provider: 08/14/17 15:17 Historian: Patient - History of Present Illness Narrative History of Present Illness (Text): 08/14/17 16:30 81yr old female presents today with fall and right knee pain with generalized weakness. pt states she has been having a cough for the past 2 days. pt states she has been having abdominal pain since her last abdominal surgery for which she cant remember when it was. pt states she was leaving the GI doctors office when she fell. pt states she felt as if her legs got weak. pt states she was feeling dizzy. pt denies hitting her head. she denies headaches. pt denies cp or sob today. pt states she was having chest pain yesterday. no fever/chills. pt denies urinary symptoms. pt states she has been having a dry cough for the past 2 days. pt states "the cough is bad". pt denies sick contacts. Past Medical History - Provider Review Nursing Documentation Reviewed: Yes - Travel History Have you recently traveled outside [place] w/in the past 3 mons?: No - Infectious Disease Hx of Infectious Diseases: None - Tetanus Immunization Tetanus Immunization: Unknown - Past Medical History Past Medical History: No Previous - Cardiac Hx Pacemaker: Yes - Pulmonary Hx Chronic Obstructive Pulmonary Disease (COPD): Yes - Neurological Hx Dementia: Yes Hx Paralysis: No - HEENT Hx HEENT Disorder: Yes - Renal Hx Renal Disorder: Yes (HX Renal cyst) - Endocrine/Metabolic Hx Endocrine Disorders: No - Hematological/Oncological Hx Blood Transfusions: No Hx Blood Transfusion Reaction: No - Integumentary Hx Dermatological Disorder: No - Musculoskeletal/Rheumatological Hx Musculoskeletal Disorders: Yes - Gastrointestinal Hx Gastrointestinal Disorders: Yes (reflux) Hx Diverticulitis: Yes Hx Gastroesophageal Reflux: Yes - Genitourinary/Gynecological Hx Genitourinary Disorders: Yes Hx Incontinence: Yes (dribbles) - Psychiatric Hx Emotional Abuse: No Hx Physical Abuse: No Hx Substance Use: No - Past Surgical History Past Surgical History: Non-Contributing - Surgical History Other/Comment: Back Sx, r knee replacement, r rotator cuff sx, loop recorder 03/21. r& l lumpectomy - Anesthesia Hx Anesthesia Reactions: No Hx Malignant Hyperthermia: No - Suicidal Assessment Feels Threatened In Home Enviroment: No Family/Social History - Physician Review Nursing Documentation Reviewed: Yes Family/Social History: Unknown Family HX Smoking Status: Former Smoker Hx Alcohol Use: No Hx Substance Use: No Hx Substance Use Treatment: No Allergies/Home Meds Allergies/Adverse Reactions: Allergies codeine Allergy (Mild, Verified 06/28/17 11:22) RASH Iodinated Contrast- Oral and IV Dye Allergy (Verified 07/04/17 09:31) SHORTNESS OF BREATH levofloxacin [From Levaquin] Allergy (Verified 06/28/17 11:22) ANAPHYLAXIS albuterol Adverse Reaction (Verified 06/28/17 11:22) DIZZINESS Home Medications: Home Meds Medication Instructions Recorded Confirmed Aspirin [Adult Low Dose Aspirin EC] 81 mg PO DAILY 06/28/17 07/04/17 Atorvastatin [Lipitor] 40 mg PO DAILY 06/28/17 07/04/17 Calcium/Vitamin D [Oyster Shell 1 tab PO DAILY 06/28/17 07/04/17 Calcium/Vitamin D 500 mg-200 IU] Carvedilol [Coreg] 12.5 mg PO DAILY 06/28/17 07/04/17 Cetirizine HCl [All Day Allergy 10 mg PO DAILY PRN 06/28/17 07/04/17 Relief] Clopidogrel [Plavix] 1 tab PO DAILY 06/28/17 07/04/17 Donepezil [Aricept] 5 mg PO DAILY 06/28/17 07/04/17 Leflunomide [Arava] 20 mg PO DAILY 06/28/17 07/04/17 Mirabegron [Myrbetriq] 50 mg PO DAILY 06/28/17 07/04/17 Montelukast [Singulair] 10 mg PO DAILY 06/28/17 07/04/17 Omeprazole 20 mg PO DAILY 06/28/17 07/04/17 Ranitidine HCl [Acid Filenet Admin] 75 mg PO DAILY 06/28/17 07/04/17 Ropinirole HCl [Requip] 1 tab PO DAILY 06/28/17 07/04/17 amLODIPine [Norvasc] 2.5 mg PO DAILY 06/28/17 07/04/17 Review of Systems - Review of Systems Constitutional: Fatigue. absent: Fevers ENT: Sore Throat. absent: Sinus Congestion Respiratory: Cough. absent: SOB, Sputum, Wheezing Cardiovascular: absent: Chest Pain, Palpitations Gastrointestinal: Abdominal Pain. absent: Constipation, Diarrhea, Nausea, Vomiting Genitourinary Female: absent: Dysuria, Frequency Musculoskeletal: Arthralgias (right knee pain). absent: Back Pain, Neck Pain Skin: absent: Rash, Pruritis Neurological: Other (generalized weakness). absent: Headache Physical Exam Vital Signs Reviewed: Yes Vital Signs Temp Pulse Resp BP Pulse Ox 08/14/17 17:45 72 16 158/72 H 99 08/14/17 16:10 169/79 H 08/14/17 15:55 98.4 F 86 16 98 Temperature: Afebrile Blood Pressure: Normal Pulse: Regular Respiratory Rate: Normal Appearance: Positive for: Well-Appearing, Non-Toxic, Comfortable Pain Distress: None Mental Status: Positive for: Alert and Oriented X 3 - Systems Exam Head: Present: Atraumatic Pupils: Present: PERRL Extroacular Muscles: Present: EOMI Ears: Present: Normal Mouth: Present: Moist Mucous Membranes Neck: Present: Normal Range of Motion, Trachea Midline. No: MIDLINE TENDERNESS , Paraspinal Tenderness Respiratory/Chest: Present: Clear to Auscultation, Good Air Exchange. No: Respiratory Distress, Accessory Muscle Use Cardiovascular: Present: Regular Rate and Rhythm, Normal S1, S2. No: Murmurs Abdomen: Present: Tenderness (diffuse lower abdominal tenderness), Normal Bowel Sounds. No: Distention, Peritoneal Signs, Rebound, Guarding Back: Present: Normal Inspection. No: CVA Tenderness, Midline Tenderness, Paraspinal Tenderness Upper Extremity: Present: Normal Inspection, Normal ROM Lower Extremity: Present: NORMAL PULSES, Normal ROM, Tenderness (right knee; + edema and tenderness noted over the anterior medial aspect of the knee; full rom of knee; no calf tenderness. sensation and distal pulses intact. cap refill <2. ), Swelling, Neurovascularly Intact, Capillary Refill < 2 s. No: Erythema, Deformity Neurological: Present: GCS=15, Speech Normal Skin: Present: Warm, Dry, Normal Color. No: Rashes Psychiatric: Present: Alert, Oriented x 3 Medical Decision Making ED Course and Treatment: 08/14/17 16:42 81yr old female s/p fall c/o generalized weakness, cough x 2 days, diffuse abdominal pain "since last abdominal surgery". pt has rx for cbc with manual diff. ekg; 92b/m electronic ventricular pacemaker cxr; wnl cbc: platelets 85 cmp; bun: 27/ cr 1.2 bnp: 2770 trop: wnl Right knee xray; no fracture, hardware in place head ct:FINDINGS: HEMORRHAGE: No acute parenchymal, subarachnoid or extra-axial hemorrhage. BRAIN: Moderate to significant diffuse/confluent chronic periventricular white matter ischemic changes seen extending peripherally into the deep and subcortical white matter both cerebral hemispheres. There is also some extension of these changes into the white matter tracts of both basal nuclei. Multiple more discrete deep and subcortical white matter and bilateral basal nuclei lacunar type infarcts also present. Note that the possibility of a small hyperacute infarct cannot be excluded. Clinical correlation recommended. . Moderate to significant volume loss. Vascular calcifications both carotid siphons and vertebral arteries. VENTRICLES: No obstructive hydrocephalus. CALVARIUM: Calvarium intact. Hyperostosis frontalis interna again noted PARANASAL SINUSES: Unremarkable as visualized. No significant inflammatory changes. MASTOID AIR CELLS: Unremarkable as visualized. No inflammatory changes. OTHER FINDINGS: Changes of bilateral cataract surgery again noted. IMPRESSION: No acute intracranial hemorrhage. Moderate to significant chronic white matter with a scattered basal nuclei ischemic changes as described. Moderate to significant volume loss. No acute fractures. Hyperostosis frontalis interna. abd/pelvis ct: FINDINGS: LOWER THORAX: Mild dependent/passive type atelectasis both posterior lower lung zones. There is a vague somewhat translucent ground-glass opacity in the lateral aspect right posterior sulcus abutting the pleural surface likely some scarring. No evidence of effusion or basilar pneumothorax. Heart is appears mildly enlarged. No significant pericardial effusion. LIVER: Liver exhibits normal size measuring nearly 15 cm in CC dimension. No obvious hepatic mass or collection. GALLBLADDER AND BILE DUCTS: Cholecystectomy. PANCREAS: Pancreas appears slightly atrophic and fatty replaced. SPLEEN: Spleen exhibits normal size and attenuation pattern without mass collection or calcification. ADRENALS: No obvious adrenal lesions KIDNEYS AND URETERS: The kidneys demonstrate relatively symmetric size. There is an elliptical shaped approximately 2.56 x 2.3 cm exophytic hyperdense lesion arising from the lower pole right kidney that probably represents hyperdense cyst though given the Hounsfield units in the 60s recommend follow-up renal ultrasound to confirm and exclude solid mass. There is a 2nd exophytic lesion seen arising from the posterolateral aspect mid to lower pole right kidney measuring approximately 2.4 x 1.3 cm which the exhibits Hounsfield units ranging between 8 and 14 consistent with cyst. . There is also a small cyst seen arising from the anterior cortex mid to lower pole left kidney. No evidence of nephrolithiasis or hydronephrosis BLADDER: Urinary bladder is physiologically distended. No evidence of intraluminal urinary bladder calculi. REPRODUCTIVE: The uterus is unremarkable. APPENDIX: Unremarkable. BOWEL: Evaluation of the bowel is somewhat limited due to the lack of oral contrast material. Stomach is incompletely distended which in part accounts for thick-walled appearance. Gastritis not or other intrinsic/invasive wall lesion including gastric carcinoma not excluded. Clinical correlation recommended. Visualized loops of small bowel exhibit relatively normal contour and caliber. Some fecalized content present within small bowel suggesting stasis. Stool and air seen throughout the large bowel. Multiple colonic diverticula. No obvious evidence of acute diverticulitis however evaluation is somewhat limited due to the lack of oral and intravenous contrast material. Clinical correlation with history, physical exam and laboratory values. PERITONEUM: Unremarkable. No fluid collection. No free air. LYMPH NODES: Unremarkable. No enlarged lymph nodes. VASCULATURE: Vascular calcifications probably abdominal aorta and iliac arteries. The BONES: Multilevel degenerative spondylosis of the lower thoracic and lumbar spine. No acute compression fractures nor retropulsed fragments. OTHER FINDINGS: None. IMPRESSION: There is an elliptical shaped approximately 2.56 x 2.3 cm exophytic hyperdense lesion arising from the lower pole right kidney that probably represents hyperdense cyst though given the Hounsfield units in the 60s recommend follow- up renal ultrasound to confirm and exclude solid mass. Cholecystectomy. Multiple colonic diverticula. No obvious evidence of acute diverticulitis however evaluation is somewhat limited due to the lack of oral and intravenous contrast material. Clinical correlation with history, physical exam and laboratory values. ASA given pO all results discussed with patient; pt states she feels achy all over; denies cp or sob at present time. US renal added as ct shows hyperdense cyst in right lower pole. case discussed with dr. villela; accepts observational status admission impression: syncope, knee pain, chest pain, elevated BNP admit observational status. - Lab Interpretations Lab Results: 08/14/17 16:30 08/14/17 16:30 Lab Results 08/14/17 18:30: Urine Color Light yellow, Urine Appearance Clear, Urine pH 6.5, Ur Specific [place] 1.010, Urine Protein Trace H, Urine Glucose (UA) Negative, Urine Ketones Negative, Urine Blood Negative, Urine Nitrate Negative, Urine Bilirubin Negative, Urine Urobilinogen 0.2, Ur Leukocyte Esterase Negative, Urine RBC 0 - 2, Urine WBC 1 - 3, Ur Epithelial Cells 1 - 3, Urine Bacteria Many 08/14/17 16:30: PT 13.4 H, INR 1.17 H, APTT 35.9 08/14/17 16:30: WBC 6.6, RBC 3.12 L, Hgb 14.2, Hct 32.9 L, MCV 105.4 H D, MCH 45.5 H, MCHC 43.2 H, RDW 21.8 H, Plt Count 85 L, Manual Plt Count 87 L, MPV 9.6 , Gran % 71.5 H, Lymph % (Auto) 20.0 L, [place] % (Auto) 4.4, Eos % (Auto) 3.5, Baso % (Auto) 0.6, Gran # 4.73, Lymph # (Auto) 1.3, [place] # (Auto) 0.3, Eos # ( Auto) 0.2, Baso # (Auto) 0.04 08/14/17 16:30: Sodium 146, Potassium 4.2, Chloride 107, Carbon Dioxide 28, Anion Gap 15, BUN 27 H, Creatinine 1.2, Est GFR ( Amer) 52, Est GFR (Non- Af Amer) 43, Random Glucose 94, Calcium 9.8, Total Bilirubin 1.5 H, AST 42 H, ALT 39, Alkaline Phosphatase 117, Lactate Dehydrogenase 628, Total Creatine Kinase 52, Troponin I < 0.01, NT-Pro-B Natriuret Pep 2770 H, Total Protein 7.2, Albumin 4.3, Globulin 2.9, Albumin/Globulin Ratio 1.5, Lipase 297 - RAD Interpretation Radiology Orders: 08/14/17 16:03 ABD & PELVIS W/O PO OR IV CONT [CT] Stat HEAD W/O CONTRAST [CT] Stat CHEST ONE VIEW [RAD] Stat KNEE W PATELLA RIGHT 3 VIEW [RAD] Stat 08/14/17 19:13 RENAL [US] Stat - Medication Orders Current Medication Orders: Discontinued Medications Aspirin (Aspirin) 325 mg PO STAT STA Stop: 08/14/17 18:33 Last Admin: 08/14/17 18:49 Dose: 325 mg Disposition/Present on Arrival - Present on Arrival Any Indicators Present on Arrival: No History of DVT/PE: No History of Uncontrolled Diabetes: No Urinary Catheter: No History of Decub. Ulcer: No History Surgical Site Infection Following: None - Disposition Have Diagnosis and Disposition been Completed?: No Diagnosis: Syncope, Chest pain, Elevated brain natriuretic peptide (BNP) level Disposition: HOSPITALIZED Disposition Time: 17:00 Patient Plan: Observation Patient Problems: Current Active Problems Problem Status Onset Chest pain Acute Elevated brain natriuretic peptide (BNP) level Acute Syncope Acute Condition: FAIR
[2017-08-14 16:44] LABS: BASO # 0.04 K/mm3 (0.0-2.0); BASO % 0.6 % (0.0-3.0); EOS # 0.2 (0.0-0.7); EOS % 3.5 % (1.5-5.0); GRAN # 4.73 (1.4-6.5); GRAN % 71.5 % (50.0-68.0); HEMOGLOBIN 14.2 g/dL (12.0-16.0); LYMPH # 1.3 (1.2-3.4); MEAN CELL VOLUME 105.4 fl (80.0-105.0); MEAN CORPUSCULAR HEMOGLOBIN 45.5 pg (25.0-35.0); MEAN CORPUSCULAR HGB CONC 43.2 g/dl (31.0-37.0); MEAN PLATELET VOLUME 9.6 fl (7.0-11.0); MONO # 0.3 (0.1-0.6); MONO % 4.4 % (1.0-6.0); RBC 3.12 10^6/uL (3.5-6.1); RED CELL DISTRIBUTION WIDTH 21.8 % (11.5-14.5); WHITE BLOOD COUNT 6.6 10^3/ul (4.5-11.0)
[2017-08-14 16:50] LABS: INR 1.17 (0.93-1.08); PROTHROMBIN TIME 13.4 SECONDS (9.4-12.5)
[2017-08-14 16:51] LABS: PARTIAL THROMBOPLASTIN TIME 35.9 Seconds (25.1-36.5)
[2017-08-14 16:54] LABS: ALB/GLOB RATIO 1.5 (1.1-1.8); ALBUMIN 4.3 g/dL (3.0-4.8); ALT/SGPT 39 U/L (7-56); AST/SGOT 42 U/L (14-36); BLOOD UREA NITROGEN 27 mg/dL (7-21); CALCIUM 9.8 mg/dL (8.4-10.5); GFR AFRICAN-AMERICAN 52; GFR NON-AFRICAN AMERICAN 43; LIPASE 297 U/L (23-300)
[2017-08-14 17:06] LABS: B-TYPE NATRIURETIC PEPTIDE 2770 pg/mL (0-450); TROPONIN I < 0.01 ng/mL
--- NOTE | 2017-08-14 17:32 | CT ---
PROCEDURE: CT HEAD WITHOUT CONTRAST. HISTORY: Status post fall. COMPARISON: Comparison made with prior study dated 06/14/2016 TECHNIQUE: Axial computed tomography images were obtained through the head/brain without intravenous contrast. Radiation dose: Total exam DLP = 774.23 mGy-cm. This CT exam was performed using one or more of the following dose reduction techniques: Automated exposure control, adjustment of the mA and/or kV according to patient size, and/or use of iterative reconstruction technique. . FINDINGS: HEMORRHAGE: No acute parenchymal, subarachnoid or extra-axial hemorrhage. BRAIN: Moderate to significant diffuse/confluent chronic periventricular white matter ischemic changes seen extending peripherally into the deep and subcortical white matter both cerebral hemispheres. There is also some extension of these changes into the white matter tracts of both basal nuclei. Multiple more discrete deep and subcortical white matter and bilateral basal nuclei lacunar type infarcts also present. Note that the possibility of a small hyperacute infarct cannot be excluded. Clinical correlation recommended. . Moderate to significant volume loss. Vascular calcifications both carotid siphons and vertebral arteries. VENTRICLES: No obstructive hydrocephalus. CALVARIUM: Calvarium intact. Hyperostosis frontalis interna again noted PARANASAL SINUSES: Unremarkable as visualized. No significant inflammatory changes. MASTOID AIR CELLS: Unremarkable as visualized. No inflammatory changes. OTHER FINDINGS: Changes of bilateral cataract surgery again noted. IMPRESSION: No acute intracranial hemorrhage. Moderate to significant chronic white matter with a scattered basal nuclei ischemic changes as described. Moderate to significant volume loss. No acute fractures. Hyperostosis frontalis interna.
--- NOTE | 2017-08-14 17:53 | CT ---
PROCEDURE: CT abdomen pelvis 08/14/2017 HISTORY: Abdominal pain. Generalized weakness. . Technologist notation indicates prior cholecystectomy and right breast tumor COMPARISON: None. TECHNIQUE: Contiguous axial images of the abdomen and pelvis performed following without oral or intravenous contrast material. Additional 2D sagittal and coronal read reformats generated. This CT exam was performed using one or more of the following dose reduction techniques: Automated exposure control, adjustment of the mA and/or kV according to patient size, and/or use of iterative reconstruction technique. Radiation dose: Total exam DLP = 249.15 mGy-cm. FINDINGS: LOWER THORAX: Mild dependent/passive type atelectasis both posterior lower lung zones. There is a vague somewhat translucent ground-glass opacity in the lateral aspect right posterior sulcus abutting the pleural surface likely some scarring. No evidence of effusion or basilar pneumothorax. Heart is appears mildly enlarged. No significant pericardial effusion. LIVER: Liver exhibits normal size measuring nearly 15 cm in CC dimension. No obvious hepatic mass or collection. GALLBLADDER AND BILE DUCTS: Cholecystectomy. PANCREAS: Pancreas appears slightly atrophic and fatty replaced. SPLEEN: Spleen exhibits normal size and attenuation pattern without mass collection or calcification. ADRENALS: No obvious adrenal lesions KIDNEYS AND URETERS: The kidneys demonstrate relatively symmetric size. There is an elliptical shaped approximately 2.56 x 2.3 cm exophytic hyperdense lesion arising from the lower pole right kidney that probably represents hyperdense cyst though given the Hounsfield units in the 60s recommend follow-up renal ultrasound to confirm and exclude solid mass. There is a 2nd exophytic lesion seen arising from the posterolateral aspect mid to lower pole right kidney measuring approximately 2.4 x 1.3 cm which the exhibits Hounsfield units ranging between 8 and 14 consistent with cyst. . There is also a small cyst seen arising from the anterior cortex mid to lower pole left kidney. No evidence of nephrolithiasis or hydronephrosis BLADDER: Urinary bladder is physiologically distended. No evidence of intraluminal urinary bladder calculi. REPRODUCTIVE: The uterus is unremarkable. APPENDIX: Unremarkable. BOWEL: Evaluation of the bowel is somewhat limited due to the lack of oral contrast material. Stomach is incompletely distended which in part accounts for thick-walled appearance. Gastritis not or other intrinsic/invasive wall lesion including gastric carcinoma not excluded. Clinical correlation recommended. Visualized loops of small bowel exhibit relatively normal contour and caliber. Some fecalized content present within small bowel suggesting stasis. Stool and air seen throughout the large bowel. Multiple colonic diverticula. No obvious evidence of acute diverticulitis however evaluation is somewhat limited due to the lack of oral and intravenous contrast material. Clinical correlation with history, physical exam and laboratory values. PERITONEUM: Unremarkable. No fluid collection. No free air. LYMPH NODES: Unremarkable. No enlarged lymph nodes. VASCULATURE: Vascular calcifications probably abdominal aorta and iliac arteries. The BONES: Multilevel degenerative spondylosis of the lower thoracic and lumbar spine. No acute compression fractures nor retropulsed fragments. OTHER FINDINGS: None. IMPRESSION: There is an elliptical shaped approximately 2.56 x 2.3 cm exophytic hyperdense lesion arising from the lower pole right kidney that probably represents hyperdense cyst though given the Hounsfield units in the 60s recommend follow-up renal ultrasound to confirm and exclude solid mass. Cholecystectomy. Multiple colonic diverticula. No obvious evidence of acute diverticulitis however evaluation is somewhat limited due to the lack of oral and intravenous contrast material. Clinical correlation with history, physical exam and laboratory values. See above discussion for additional details and findings.
--- NOTE | 2017-08-14 18:01 | RAD ---
PROCEDURE: Right Knee Radiographs. HISTORY: Pain. No history of recent/ related trauma provided COMPARISON: None. FINDINGS: BONES: Unremarkable components right TKA JOINTS: Normal. No osteoarthritis. JOINT EFFUSION: None. OTHER FINDINGS: None. IMPRESSION: No acute findings related to/accounting for the clinical presentation. Additional benign and/or incidental findings described above.
--- NOTE | 2017-08-14 18:02 | RAD ---
PROCEDURE: CHEST RADIOGRAPH, 1 VIEW HISTORY: fall/ COMPARISON: 08/21/2016 FINDINGS: LUNGS: Clear. PLEURA: No pneumothorax or pleural fluid seen. CARDIOVASCULAR: No radiographic findings to suggest acute or significant cardiovascular disease. Position/ configuration of pacemaker device: Satisfactory. OSSEOUS STRUCTURES: No significant abnormalities. VISUALIZED UPPER ABDOMEN: Normal. OTHER FINDINGS: None. IMPRESSION: No active disease. No acute/significant interval changes.
[2017-08-14 18:39] LABS: PH,URINE 6.5 (4.7-8.0); URINE BILIRUBIN NEGATIVE (NEGATIVE); URINE BLOOD NEGATIVE (NEGATIVE); URINE GLUCOSE (UA) NEGATIVE (NEGATIVE); URINE LEUKOCYTE ESTERASE NEGATIVE Leu/uL (NEGATIVE); URINE PROTEIN TRACE mg/dL (<30 mg/dL); URINE UROBILINOGEN 0.2 E.U./dL (<1 E.U./dL)
[2017-08-14 18:45] LABS: URINE APPEARANCE CLEAR (CLEAR); URINE COLOR LIGHT YELLOW (YELLOW)
[2017-08-14 18:55] LABS: URINE BACTERIA MANY (NEG); URINE RBC 0 - 2 /hpf (0-2)
--- NOTE | 2017-08-14 20:57 | US ---
EXAM: US Retroperitoneal Limited, Renal EXAM DATE/TIME: 08/14/2017 7:13 PM CLINICAL HISTORY: The patient age is 81 years old and is female; Abnormal findings; Abnormal lab test; Abnormal kidney function lab tests; Additional info: Abnormal CT; Hyperdense lesion right kidney Facility exam id and description: [facility] renal renal TECHNIQUE: Real-time ultrasound of the retroperitoneum (limited) with image documentation. COMPARISON: US - ABDOMEN COMPLETE 2015-12-03 15:02 FINDINGS: Right kidney: The right kidney measures 9.3 x 4.7 x 5.6 cm. At the lower pole of the right kidney, there is a heterogeneously hypoechoic mildly complex cyst with posterior acoustic enhancement. This measures 2.1 x 1.8 x 1.5 cm. An additional tiny hypoechoic cyst is seen at the lower pole measuring 0.6 x 0.4 x 0.6 cm. No shadowing stones. No hydronephrosis. Left kidney: The left kidney measures 10.2 x 4.2 x 5.4 cm. There is a hypoechoic cyst at the lower pole of the left kidney measuring 1.0 x 1.0 x 1.9 cm. No shadowing stones. No hydronephrosis. IMPRESSION: 1. Bilateral renal cysts. A mildly complex cyst is seen at the lower pole of the right kidney. Follow-up ultrasonography is recommended.
[2017-08-15 00:17] VITALS: BMI 20.5
[2017-08-15 06:52] LABS: CALCIUM 9.4 mg/dL (8.4-10.5)
[2017-08-15 07:01] LABS: HEMOGLOBIN 13.6 g/dL (12.0-16.0); MEAN CORPUSCULAR HEMOGLOBIN 31.9 pg (25.0-35.0); MEAN CORPUSCULAR HGB CONC 33.5 g/dl (31.0-37.0); RBC 4.27 10^6/uL (3.5-6.1); RED CELL DISTRIBUTION WIDTH 16.3 % (11.5-14.5); WHITE BLOOD COUNT 6.7 10^3/ul (4.5-11.0)
[2017-08-15 07:03] LABS: MEAN CELL VOLUME 95.1 fl (80.0-105.0)
[2017-08-15] MEDS ORDERED: Potassium Chloride 20 mEq ER Tab PO STA (07:37)
[2017-08-15] MEDS: Mirabegron [Myrbetriq] 50 MG (HOME MED) PO SCH (10:05)
[2017-08-15] MEDS ORDERED: Promethazine DM 6.25 mg-15 mg/5 ml Syrup PO PRN (10:35)
--- NOTE | 2017-08-15 10:41 | CARD ---
APPROVED REPORT EKG Measurement Heart [id number] <Conclusion> 100% V. Paced No change
[2017-08-15] MEDS ORDERED: MethylPREDNISolone 40 mg Vial IV ONE (11:00)
[2017-08-15 11:04] LABS: HDL CHOLESTEROL 39 mg/dL (29-60)
[2017-08-15 11:15] LABS: LDL CHOLESTEROL 34 mg/dL (0-129)
[2017-08-15 11:16] LABS: TROPONIN I < 0.01 ng/mL
--- NOTE | 2017-08-15 11:54 | CP.PCM.CON ---
<Rosa Sullivan - Last Filed: 08/15/17 11:54> History of Present Illness - History of Present Illness History of Present Illness: Seen and examined at bedside earlier today, chart reviewed. Request for GI consult for abdominal pain. HPI: This is an 81 year old female with a history of CPOD, CAD on Plavix, Dementia, Reflux disease, known to our outpatient service, came to the ER after fall, patient endorses that she was leaving our office and as she was getting ready to leave she felt her legs get weak and fell, She endorses that she has problems with her right knee. She did c/o feeling dizzy. Ct head done and no acute bleeding or infarct, does show chronic changes, no acute fracture. Patient complain of abdominal pain, same area as she complain of in the past, mid abdomen that radiates to right side to her back,patient did have ct scan done in ER and reveal diverticulosis, no inflammatory process, gastric wall appear thickened, exophytic hyperdense lesion in the right kidney. Renal US done and reveal renal cyst, mild complex cyst in the lower pole if the right kidney. No symptoms of nausea or vomiting but at times the patient occasionally has symptoms of dyspepsia. Patient is having BM but can be inconsistent, it can be loose or appears stringy as per the patient but does not notice any melena or bright red blood per rectum. Her last BM was last night and it was soft brown. They also report that the patient has been bruising easily, patient last CBC done outpatient show thrombocytopenia. Patient c/o coughing and phlegm, no fever or chills, CXR show no active disease. In review of her endoscopy which was on 07/04/2017, she was found to have a 1- cm hiatus hernia and patchy mild inflammation characterized by erythema in the gastric body. Biopsies were taken and these reveal superficial erosions but no intestinal metaplasia or H. pylori. The exam of the duodenum was normal. Most recent colonoscopy was in 2017 and this showed a very redundant colon. Past Medical History:Chronic obstructive pulmonary disease,Sleep apnea ( obstructive),Coronary artery disease,Hypercholesterolemia,Hypertension,5 cardiac stents, pacemaker. Reflux disease, Osteoarthritis, Stroke, Dementia, Rheumatoid arthritis. Surgical History: right knee replacement, lumpectomy (Rt.) and lower back surgery, Rt. rotator cuff surgery.Last Colonoscopy was done on Feb 21, 2017. Social History:Non smoker, denies alcoholic beverages, illtict drugs Allergy: codeine, percocet Medications:reviewed as per MAR, significant for PLAVIX Family History:No family hx of colon cancer. ROS: systems reviewed with positive findings, see HPI Past Patient History - Infectious Disease Hx of Infectious Diseases: None - Tetanus Immunizations Tetanus Immunization: Unknown - Past Medical History & Family History Past Medical History?: Yes - Past Social History Smoking Status: Former Smoker - CARDIAC Hx Cardiac Disorders: Yes Hx Angina: No Hx Cardia Arrhythmia: Yes Hx Circulatory Problems: No Hx Congestive Heart Failure: Yes Hx Heart Murmur: No Hx Heart Transplant: No Hx Hypercholesterolemia: Yes Hx Hypertension: Yes Hx Internal Defibrillator: No Hx Mitral Valve Prolapse: No Hx Pacemaker: Yes Hx Peripheral Edema: No Hx Peripheral Vascular Disease: No - PULMONARY Hx Respiratory Disorders: Yes Hx Asthma: No Hx Bronchitis: No Hx Chronic Obstructive Pulmonary Disease (COPD): Yes Hx Emphysema: Yes Hx Pneumonia: Yes Hx Respiratory Aspiration: No Hx Respiratory Tract Infection: Yes Hx Sleep Apnea: No Hx Tuberculosis: No - NEUROLOGICAL Hx Neurological Disorder: Yes (herniated disc) Hx Alzheimer's Disease: No HX Cerebrovascular Accident: No Hx Dementia: Yes Hx Dizziness: No Hx Meningitis: No Hx Migraine: No Hx Parkinson's Disease: No Hx Seizures: No Hx Transient Ischemic Attacks (TIA): Yes - HEENT Hx HEENT Problems: Yes Hx Blind: No Hx Cataracts: Yes Hx Deafness: Yes (Hard of hearing) Hx Difficulty Chewing: No Hx Epistaxis: No Hx Glaucoma: No Hx Macular Degeneration: No - RENAL Hx Chronic Kidney Disease: No Hx Dialysis: No Hx Kidney Stones: No Hx Neurogenic Bladder: No Hx Pyelonephritis: No Hx Renal (Kidney) Cancer: No Hx Renal Failure: No - ENDOCRINE/METABOLIC Hx Endocrine Disorders: No Hx Adrenal Cancer: No Hx Diabetes Insipidus: No Hx Diabetes Mellitus Type 1: No Hx Diabetes Mellitus Type 2: No Hx Hyperthyroidism: No Hx Hypothyroidism: No Hx Systemic Lupus Erythematosus: No - HEMATOLOGICAL/ONCOLOGICAL Hx Blood Disorders: Yes Hx AIDS: No Hx Anemia: Yes Hx Cancer: No Hx Chemotherapy: No Hx Cirrhosis: No Hx Hemophilia: No Hx Hepatitis A: No Hx Hepatitis B: No Hx Hepatitis C: No Hx Human Immunodeficiency Virus (HIV): No Hx Metastesis: No Hx Shingles: No Hx Sickle Cell Disease: No Hx Unexplained Bleeding: No - INTEGUMENTARY Hx Dermatological Problems: Yes (dermatitis) Hx Basil Cell: No Hx Eczema: No Hx Melanoma: No Hx Psoriasis: No Hx Squamous Cell: No - MUSCULOSKELETAL/RHEUMATOLOGICAL Hx Musculoskeletal Disorders: Yes Hx Arthritis: Yes Hx Back Pain: Yes Hx Degenerative Joint Disease: Yes Hx Falls: Yes Hx Fractures: No Hx Gout: No Hx Herniated Disk: Yes Hx Myasthenia Gravis: No Hx Osteoarthritis: Yes Hx Osteomyelitis: No Hx Osteoporosis: No Hx Rhabdomyolysis: No Hx Spinal Stenosis: No Hx Unsteady Gait: Yes - GASTROINTESTINAL Hx Gastrointestinal Disorders: Yes Hx Colostomy: Yes (reversal) Hx Crohn's Disease: No Hx Diverticulitis: No Hx Gall Bladder Disease: Yes Hx Gastroesophageal Reflux: Yes Hx Ileostomy: No Hx Liver Failure: No Hx Pancreatitis: No HX Swallowing Problems: No Hx Ulcer: No - GENITOURINARY/GYNECOLOGICAL Hx Genitourinary Disorders: Yes Hx Hematuria: No Hx Incontinence: Yes Hx Sexually Transmitted Disorders: No Hx Urinary Tract Infection: No - PSYCHIATRIC Hx Psychophysiologic Disorder: Yes Hx Anxiety: Yes Hx Bipolar Disorder: No Hx Depression: No Hx Emotional Abuse: No Hx Hallucinations: No Hx Panic Symptoms: No Hx Paranoia: No Hx Post Traumatic Stress Disorder: No Hx Psychosis: No Hx Physical Abuse: No Hx Schizophrenia: No Hx Sexual Abuse: No - SURGICAL HISTORY Hx Surgeries: Yes (benign breast lumepectomy) Hx Amputation: No Hx Appendectomy: No Hx Cardiac Catheterization: Yes Hx Cholecystectomy: Yes Hx Coronary Stent: Yes Hx Gastric Bypass Surgery: No Hx Hysterectomy: No Hx Kidney Transplant: No Hx Liver Transplant: No Hx Mastectomy: No Hx Musculoskeletal Surgery: Yes (right knee , right rotator cuff) Hx Open Heart Surgery: No Hx Orthopedic Surgery: Yes Hx Splenectomy: No Hx Valve Replacement: No - ANESTHESIA Hx Anesthesia Reactions: No Hx Malignant Hyperthermia: No Meds Allergies/Adverse Reactions: Allergies Allergy/AdvReac Type Severity Reaction Status Date / Time codeine Allergy Mild RASH Verified 06/28/17 11:22 Iodinated Contrast- Oral and Allergy SHORTNESS Verified 07/04/17 09:31 IV Dye OF BREATH levofloxacin [From Levaquin] Allergy ANAPHYLAXIS Verified 06/28/17 11:22 albuterol AdvReac DIZZINESS Verified 06/28/17 11:22 - Medications Medications: Current Medications Amlodipine Besylate (Norvasc) 5 mg PO DAILY LYNDSEY Last Admin: 08/15/17 10:00 Dose: 5 mg Aspirin (Ecotrin) 81 mg PO DAILY [facility] Last Admin: 08/15/17 10:01 Dose: 81 mg Atorvastatin Calcium (Lipitor) 40 mg PO DAILY [facility] Last Admin: 08/15/17 10:01 Dose: 40 mg Carvedilol (Coreg) 12.5 mg PO DAILY [facility] Last Admin: 08/15/17 10:01 Dose: 12.5 mg Clopidogrel Bisulfate (Plavix) 75 mg PO DAILY [facility] Last Admin: 08/15/17 10:01 Dose: 75 mg Donepezil HCl (Aricept) 5 mg PO DAILY [facility] Last Admin: 08/15/17 10:01 Dose: 5 mg Furosemide (Lasix) 40 mg PO DAILY [facility] Levalbuterol HCl (Xopenex) 1.25 mg IH [id number] PRN PRN Reason: Shortness of Breath Loratadine (Claritin) 10 mg PO DAILY PRN PRN Reason: Allergy symptoms Montelukast Sodium (Singulair) 10 mg PO DAILY [facility] Last Admin: 08/15/17 10:00 Dose: 10 mg Mirabegron [ Myrbetriq] 50 Mg ( Home Med) 50 mg PO DAILY [facility] Last Admin: 08/15/17 10:05 Dose: Not Given Potassium Chloride (K-Dur 20 Meq Er Tab) 40 meq PO ONCE ONE Stop: 08/15/17 15:01 Promethazine HCl/Dextromethorphan (Phenergan Dm Syrup) 5 ml PO Q6H PRN PRN Reason: Cough Ropinirole HCl (Requip) 0.25 mg PO BID [facility] Last Admin: 08/15/17 10:01 Dose: 0.25 mg Physical Exam - Constitutional Appears: No Acute Distress - Head Exam Head Exam: NORMOCEPHALIC - Eye Exam Eye Exam: Scleral icterus. absent: Normal appearance - ENT Exam ENT Exam: Mucous Membranes Moist - Neck Exam Neck exam: Positive for: Normal Inspection - Respiratory Exam Respiratory Exam: NORMAL BREATHING PATTERN. absent: Respiratory Distress - Cardiovascular Exam Cardiovascular Exam: +S1, +S2 - GI/Abdominal Exam GI & Abdominal Exam: Normal Bowel Sounds, Soft, Tenderness (diffuse mid abdomen to right quadrant, no rebound or guarding). absent: Guarding, Organomegaly, Rebound - Extremities Exam Extremities exam: Positive for: calf tenderness, pedal pulses present. Negative for: pedal edema Additional comments: right knee edema - Neurological Exam Neurological exam: Alert, Oriented x3 - Skin Skin Exam: Dry, Warm Results - Vital Signs Recent Vital Signs: Last Vital Signs Temp 97.6 F 08/15/17 06:00 Pulse 69 08/15/17 10:01 Resp 20 08/15/17 06:00 BP 159/96 H 08/15/17 10:01 Pulse Ox 97 08/15/17 06:00 - Labs Result Diagrams: 08/15/17 05:30 08/15/17 05:30 Labs: Laboratory Results - last 24 hr 08/15/17 08/15/17 08/15/17 05:30 05:30 07:00 WBC 6.7 RBC 4.27 Hgb 13.6 Hct 40.6 MCV 95.1 D MCH 31.9 MCHC 33.5 RDW 16.3 H Plt Count 73 L MPV 10.0 Sodium 146 Potassium 3.5 L Chloride 109 H Carbon Dioxide 28 Anion Gap 13 BUN 26 H Creatinine 1.1 Est GFR ( Amer) 57 Est GFR (Non-Af Amer) 47 Random Glucose 72 Calcium 9.4 Lactate Dehydrogenase 549 Total Creatine Kinase 37 Triglycerides 75 Cholesterol 84 L HDL Cholesterol 39 Assessment & Plan - Assessment and Plan (Free Text) Assessment: ASSESSMENT: S/p Fall, Dizziness Abdominal Pain Thrombocytopenia CAD, s/p cardiac stent on PLAVIX Right knee Pain COPD Right renal cyst PLAN: diet as tolerated monitor cbc, platelets and overt GI bleeding recommend hematology evaluation for thrombobytopenia recommend pulmonary eval H/O CPOD avoid any PPI at the moment for low platelets on Plavix & Aspirin Thank you for this consult and for allowing us to participate in your patient care, further recommendation based upon clinical course. Seen and discussed w/ Dr. Goldsmith. <Caryn Goldsmith V - Last Filed: 08/15/17 22:52> Meds - Medications Medications: Current Medications Amlodipine Besylate (Norvasc) 5 mg PO DAILY [facility] Last Admin: 08/15/17 10:00 Dose: 5 mg Aspirin (Ecotrin) 81 mg PO DAILY [facility] Last Admin: 08/15/17 10:01 Dose: 81 mg Atorvastatin Calcium (Lipitor) 40 mg PO DAILY [facility] Last Admin: 08/15/17 10:01 Dose: 40 mg Carvedilol (Coreg) 12.5 mg PO DAILY [facility] Last Admin: 08/15/17 10:01 Dose: 12.5 mg Clopidogrel Bisulfate (Plavix) 75 mg PO DAILY [facility] Last Admin: 08/15/17 10:01 Dose: 75 mg Donepezil HCl (Aricept) 5 mg PO DAILY [facility] Last Admin: 08/15/17 10:01 Dose: 5 mg Furosemide (Lasix) 40 mg PO DAILY [facility] Levalbuterol HCl (Xopenex) 1.25 mg IH [id number] PRN PRN Reason: Shortness of Breath Last Admin: 08/15/17 20:51 Dose: 1.25 mg Loratadine (Claritin) 10 mg PO DAILY PRN PRN Reason: Allergy symptoms Montelukast Sodium (Singulair) 10 mg PO DAILY [facility] Last Admin: 08/15/17 10:00 Dose: 10 mg Mirabegron [ Myrbetriq] 50 Mg ( Home Med) 50 mg PO DAILY [facility] Last Admin: 08/15/17 10:05 Dose: Not Given Promethazine HCl/Dextromethorphan (Phenergan Dm Syrup) 5 ml PO Q6H PRN PRN Reason: Cough Last Admin: 08/15/17 21:16 Dose: 5 ml Ropinirole HCl (Requip) 0.25 mg PO BID [facility] Last Admin: 08/15/17 18:14 Dose: 0.25 mg Results - Vital Signs Recent Vital Signs: Last Vital Signs Temp 97 F L 08/15/17 18:00 Pulse 82 08/15/17 22:00 Resp 18 08/15/17 18:00 BP 131/86 08/15/17 18:00 Pulse Ox 97 08/15/17 06:00 - Labs Result Diagrams: 08/15/17 05:30 08/15/17 05:30 Labs: Laboratory Results - last 24 hr 08/15/17 08/15/17 08/15/17 05:30 05:30 07:00 WBC 6.7 RBC 4.27 Hgb 13.6 Hct 40.6 MCV 95.1 D MCH 31.9 MCHC 33.5 RDW 16.3 H Plt Count 73 L MPV 10.0 Sodium 146 Potassium 3.5 L Chloride 109 H Carbon Dioxide 28 Anion Gap 13 BUN 26 H Creatinine 1.1 Est GFR ( Amer) 57 Est GFR (Non-Af Amer) 47 Random Glucose 72 Calcium 9.4 Lactate Dehydrogenase 549 Total Creatine Kinase 37 Troponin I < 0.01 Triglycerides 75 Cholesterol 84 L LDL Cholesterol Direct 34 HDL Cholesterol 39 Attending/Attestation - Attestation I have personally seen and examined this patient.: Yes I have fully participated in the care of the patient.: Yes I have reviewed all pertinent clinical information: Yes Notes (Text): This is an addendum to GI progress report dictated by Rosa Sullivan APN.The patient was seen and examined earlier. Medical records, lab studies, imagings were reviewed. Last 24 hours events reviewed. Agreed with the above treatment plan as outlined in Rosa Sullivan APN's notes with the addition of the following Status post fall History of GERD Chronic constipation addendum: Status post EGD: On examination abdomen soft no tenderness Both Plavix and PPI are on hold in view of thrombocytopenia Patient also has macrocytosis in addition would benefit from hematology evaluation. history of chronic cough.Follow-up pulmonary evaluation 08/15/17 22:49
[2017-08-15] MEDS ORDERED: MethylPREDNISolone Depo 40 mg/ml Inj IM ONE ×2 (14:56→14:59)
[2017-08-15] MEDS ORDERED: Bupivacaine 0.5% Inj(30mL) IJ ONE (14:56)
[2017-08-15] MEDS ORDERED: Potassium Chloride 20 mEq ER Tab PO ONE (15:00)
--- NOTE | 2017-08-15 18:14 | RAD ---
PROCEDURE: Left Knee Radiographs. HISTORY: Left knee pain COMPARISON: None. FINDINGS: BONES: No acute fracture. JOINTS: Degenerative changes are mild. JOINT EFFUSION: No significant joint effusion. OTHER FINDINGS: None. IMPRESSION: No acute findings related to/accounting for the clinical presentation.
[2017-08-15] MEDS: Levalbuterol 1.25 MG/3 ML Inhal Soln UD IH PRN (20:51)
[2017-08-15] MEDS ORDERED: Oxymetazoline 0.05% Nasal Spray (30 ml) NS SCH (23:15)
[2017-08-15] MEDS: Oxymetazoline 0.05% Nasal Spray (30 ml) NS SCH (23:46)
--- NOTE | 2017-08-16 06:00 | CON ---
DATE: REASON FOR CONSULTATION: Cardiac evaluation, admitted with fall, mechanical, after the leg gave up, also complained of generalized weakness, chest pain, abdominal pain and shortness of breath while cleaning her house. BRIEF CLINICAL HISTORY: This is an 81-year-old female with past medical history significant for COPD, coronary artery disease, status post multiple stent, history of pacemaker, sick sinus syndrome, multiple syncope secondary to sick sinus syndrome, who states that she was cleaning her house yesterday because water came in from the ceiling, feels one episode of tightness, one episode of chest pain and shortness of breath, lied down, and felt better, and then started inhaler, did better. This morning, while walking, her right knee gave up and fell down, so called the ambulance and brought here. Denies any further episode of chest pain. Denies any previous episode of shortness of breath or palpitation. PAST MEDICAL HISTORY: Past history significant for sick sinus syndrome, status post permanent pacemaker, was initially put loop recorder because of recurrent syncope. The loop recorder shows 6-second pause pacemaker. History of coronary artery disease, history of multiple stents, history of COPD, history of laryngeal motility and multiple episode of dizziness and multiple fall. Previous cardiac workup as follows; the patient had an echocardiography on 05/27/2015 that shows LV function normal, mild aortic stenosis, trace to mild mitral regurgitation, mild tricuspid regurgitation. Last stress test on 11/17/2015 shows no reversible ischemia. The patient's last admission on 06/15/2016, shows significant T inversion. The patient underwent cardiac catheterization on 06/16/2016 that shows nonoperative coronary artery disease, limited, only proximal LAD 55% stenosis, an old previous stent in the LAD, circumflex artery is patent, ejection fraction 55%, EDP in the range of 15, dated 06/16/2016. History of chronic COPD, history of repeat echo on 05/24/2016 shows ejection fraction of 65%, RV severely dilated, moderately reduced RV function, LV function normal. No aortic regurgitation. Mild mitral regurgitation. Moderate to severe tricuspid regurgitation. RV systolic pressure of 46. CURRENT MEDICATIONS: The patient is taking amlodipine 5 mg daily, Requip, Singulair, Meloxicam, Aricept, Plavix, carvedilol, aspirin. REVIEW OF SYSTEMS: As per HPI. PHYSICAL EXAMINATION: VITAL SIGNS: Height of the patient is 5 feet 4 inches, weight of the patient 120 pounds, body mass index 20.6 kg/m2. Temperature afebrile, heart rate 69, blood pressure 159/96. HEENT: PERRLA. Extraocular muscles intact. NECK: Supple. No carotid bruit. No thyromegaly. CHEST: Clear to auscultation. HEART: S1 and S2 regular. ABDOMEN: Soft. EXTREMITIES: Clubbing and cyanosis negative. LABORATORY DATA: Blood workup as follows; WBC 6.3, hemoglobin , hematocrit 40.6, platelet count 73. Chemistry shows sodium 146, potassium 3.5, chloride 109, carbon dioxide 28, anion gap of 13, BUN 26, creatinine 1.1. BNP 2770. First troponin 0.01 that remains negative. IMPRESSION: An 81-year-old female with past medical history significant for multiple stents, history of sick sinus syndrome, status post pacemaker, history of chronic obstructive pulmonary disease, laryngeal dysphagia, admitted after a fall because the knee gave up. Prior to patient coming to the hospital, 24 hours ago, states that she was cleaning house because the water came in from ceiling, had one episode of chest pain, denies any further episode of chest pain, but also complained of abdominal pain. RECOMMENDATION: Follow up serial CPK. We will add morning specimen CPK and troponin. Supplement potassium. Resume blood pressure medication. We will get echo. Last echo was a year ago that shows preserved LV function, moderate to severe tricuspid regurgitation, mild mitral regurgitation, no aortic regurgitation, dilated RV. Last catheterization in 05/2016 because of significant T inversion, patent PTCA site, nonischemic coronary artery disease, preserved LV function. We will continue gentle diuretics. We will follow with you. Since the patient in significant TR, possibly there is elevated BNP secondary to congestive heart failure (right heart failure). We will continue negative fluid balance and give her the diuretics. Supplement potassium. We will follow with you. Also get lipid profile, TSH, hemoglobin A1c. Thank you, Dr. England for providing us the opportunity in taking care of Darcy Mcguire. Berenice Maravilla MD [facility] # [id number]
[2017-08-16 06:02] VITALS: O2SAT 96
[2017-08-16 06:32] LABS: B-TYPE NATRIURETIC PEPTIDE 2280 pg/mL (0-450)
[2017-08-16 07:19] LABS: ALB/GLOB RATIO 1.4 (1.1-1.8); ALBUMIN 4.1 g/dL (3.0-4.8); ALT/SGPT 39 U/L (7-56); AST/SGOT 34 U/L (14-36); BLOOD UREA NITROGEN 30 mg/dL (7-21); CALCIUM 9.8 mg/dL (8.4-10.5); GFR AFRICAN-AMERICAN > 60; GFR NON-AFRICAN AMERICAN 53
--- NOTE | 2017-08-16 07:33 | CON ---
DATE: 08/15/2017 REFERRING PHYSICIAN: Dr. England. REASON FOR CONSULTATION: Chronic lung disease, sleep apnea syndrome, has chronic sinusitis with postnasal drip. HISTORY OF PRESENT ILLNESS: This is an 81-year-old female with multiple medical issues including chronic sinusitis, sleep apnea syndrome, Alzheimer's-type dementia, history of GERD, multiple joint arthritis, apparently slipped while coming out of her physician's office and fell, also been complaining of cough, postnasal drip, stuffy nose. She has a known sleep apnea syndrome in the past, refused CPAP use. No hemoptysis. No hematemesis. No hematuria. No diarrhea reported. PAST MEDICAL HISTORY: As per history of present illness. SOCIAL HISTORY: Former smoker. Denies any alcohol use. FAMILY HISTORY: No significant cardiopulmonary disease reported. ALLERGIES: SHE IS ALLERGIC TO CODEINE, IODINATED CONTRAST, LEVAQUIN, AND ALBUTEROL GAVE HER DIZZINESS. MEDICATIONS: She is on Aricept 5 mg daily, Claritin 10 mg daily, Coreg 12.5 mg daily, Ecotrin 81 mg daily, Lasix 40 mg daily, Lipitor 40 mg daily, Norvasc 5 mg daily, Phenergan DM 5 mL every 6 hours p.r.n., Plavix 75 mg daily, Requip 0.25 mg twice a day, Singulair 10 mg daily, Xopenex inhaled every 6 hours p.r.n. REVIEW OF SYSTEMS: On and off headache, rhinitis. No nausea, no vomiting. No diarrhea. No leg pain or leg swelling, has a right knee discomfort. PHYSICAL EXAMINATION: GENERAL: Sitting at side of the bed. VITAL SIGNS: Temperature is 98, heart rate 64, respiratory rate is 18, blood pressure 131/86, pulse ox 97% on room air. HEENT: Moist mucous membrane. Nasal mucosa mildly erythematous. Maxillary sinus, mild tenderness. LUNGS: Has fair airflow with rhonchi. HEART: S1, S2. ABDOMEN: Soft, nontender, no organomegaly. EXTREMITIES: There is no edema. NEUROLOGIC: Awake, alert; follows simple commands. LABORATORY DATA: Shows hemoglobin 13.6, hematocrit 40.6, WBC 6.7, platelet count is . INR 1.17, PTT 36. Sodium 146, potassium 3.5, chloride 109, bicarbonate 28, BUN 26, creatinine 1.1, calcium 9.4, LDH 549. Troponin less than 0.01. Cholesterol is 84. Urinalysis shows wbc's 1-3. Had an abdominal and pelvic CAT scan done on admission which shows there is a 2.5 x 2.3 exophytic hyperdense lesion arising from the lower pole of the right kidney, probably representing hyperdense cyst, though the given the in the 60s, needs followup. Has diverticula. Lower chest area shows some atelectasis. There are some ground-glass opacities. CAT scan of the head was done in the ER, shows no acute intracranial hemorrhage, moderate significant chronic white matter with scattered basal nuclei ischemia changes as described, more to significant volume loss. Also, has knee x-ray done which shows no acute finding accounting for any clinical presentation. IMPRESSION AND PLAN: Cardiac diastolic dysfunction with pulmonary hypertension, history of chronic lung disease, sleep apnea syndrome, rheumatoid arthritis, history of methotrexate use in the past, status post fall with knee pain, also has sinusitis. I agree with Dr. England the present management. We will try CPAP at 6 cm at 35% oxygen . Also, add Singulair 10 mg at bedtime, Flonase 1 spray each nostril twice a day, Afrin 1 spray each nostril twice a day, add doxycycline 100 mg twice a day. We will recommend repeat sleep study upon discharge as outpatient and PFT as outpatient. Follow up CT of the abdomen to assure the stability of cystic lesion in the kidney. Thank you and we will follow with you. Berenice Whitt MD
[2017-08-16] MEDS: Levalbuterol 1.25 MG/3 ML Inhal Soln UD IH PRN (07:55)
[2017-08-16 08:39] LABS: HEMOGLOBIN 13.2 g/dL (12.0-16.0); MEAN CELL VOLUME 94.1 fl (80.0-105.0); MEAN CORPUSCULAR HEMOGLOBIN 30.9 pg (25.0-35.0); MEAN CORPUSCULAR HGB CONC 32.8 g/dl (31.0-37.0); MEAN PLATELET VOLUME 11.3 fl (7.0-11.0); RBC 4.27 10^6/uL (3.5-6.1); RED CELL DISTRIBUTION WIDTH 16.2 % (11.5-14.5); WHITE BLOOD COUNT 9.5 10^3/ul (4.5-11.0)
--- NOTE | 2017-08-16 08:48 | CON ---
DATE: 08/15/2017 ORTHOPEDIC CONSULT LOCATION: Room 260, bed 1. HISTORY OF PRESENT ILLNESS: An 81-year-old female with complaints of pain in her left knee, suspect osteoarthritis. No effusion. She had a recent total knee done at the right a couple of years ago. There is mild instability. The main complaint is left knee discomfort. She was offered total knee on that side, but refused it at that time, so will x-ray her left knee, do physical therapy for ambulation, strengthening exercises to avoid another fall where she fell at home and she needs to get strength in her knee by physical therapy and she needs to walk with a walker and we will re-x-ray her left knee. To help her pain, we could give her Depo-Medrol and Marcaine injection and there is no effusion of either knee, which is a good sign. Has adequate range of motion. Does walk with a walker. The main things strength and minimize her fall again and re-x-ray the left knee to see if there is significant arthritis. If so, we would give her Depo-Medrol and Marcaine injections to make her perform physical therapy better. Javid Griffin DO
[2017-08-16] MEDS ORDERED: Fluticasone Nasal 50 mcg/Spray NS SCH (10:00)
[2017-08-16] MEDS: Mirabegron [Myrbetriq] 50 MG (HOME MED) PO SCH (12:03)
[2017-08-16 12:16] VITALS: BP 123/69; PULSE 96; RESP 20; TEMP 97.7
--- NOTE | 2017-08-16 12:27 | PN ---
DATE: 08/16/2017 REASON FOR CONSULTATION AND FOLLOWUP: Cardiac evaluation, admitted with fall, mechanical, after legs gave up, also complaining of generalized weakness, chest pain, which is very tender, nonischemic chest pain. SUBJECTIVE: Patient denies any chest pain but complained of on bending forwards, she feels chest pain, which is very tender. OBJECTIVE: GENERAL: Not in apparent distress, now wanted to get the pacemaker, she was supposed to have this week but she missed the appointment. VITAL SIGNS: As follows; temperature afebrile, heart rate 70, blood pressure 141/80. HEENT: PERRLA, intact. NECK: Supple. No carotid bruit. No thyromegaly. CHEST: Clear to auscultation. HEART: S1 and S2 regular. ABDOMEN: Soft. EXTREMITIES: Clubbing and cyanosis negative. LABORATORY DATA: Blood workup as follows; WBC 9.5, hemoglobin 13.2, hematocrit 40.2, platelet count 91. Chemistry shows sodium 147, potassium , carbon dioxide 29, anion gap of 18, BUN 30, creatinine 1. BNP 2280. IMPRESSION: An 81-year-old female with past medical history significant for coronary artery disease, status post multiple stents, status post pacemaker, who came in with the complaint of generalized weakness, headache, flank pain, abdominal pain radiating to the epigastrium and chest pain was tender in the xiphoid area; so far, no evidence of acute myocardial infarction. Previously, patient had extensive workup and most recently, patient had a cardiac catheterization in 05/2016 because of significant T inversion that shows patent percutaneous transluminal coronary angioplasty site. Last echo showed preserved left ventricular function, [id number] tricuspid regurgitation, mild mitral regurgitation, no aortic regurgitation. CAT scan and abdominal ultrasound shows multiple cysts in both kidneys. RECOMMENDATIONS: Continue Coreg. Continue aspirin. Continue gentle diuretics. Continue to supplement potassium. So far, no evidence of acute ME. Chest pain is atypical, musculoskeletal. We will discontinue Telemetry and get the pacemaker interrogation. We will also get echo because last echo was on 05/26/2016. We will follow with you. We will also repeat the blood workup in the morning. Thank you, Dr. England, for providing us the opportunity in taking care of patient, Darcy Mcguire. Berenice Maravilla MD
[2017-08-16] MEDS: Oxymetazoline 0.05% Nasal Spray (30 ml) NS SCH (12:32)
--- NOTE | 2017-08-16 13:05 | CP.PCM.PN ---
<Rosa Sullivan - Last Filed: 08/16/17 13:05> Subjective - Date & Time of Evaluation Date of Evaluation: 08/16/17 Time of Evaluation: 10:10 - Subjective Subjective: Seen and examined at the bedside earlier this morning, occasional cough no complaints of hemoptysis. Patient had soft bowel movement yesterday no reports of bleeding. Right knee swelling decreased. Occasional abdominal discomfort no acute distress. No acute overnight events reported. Objective - Vital Signs/Intake and Output Vital Signs (last 24 hours): Temp Pulse Resp BP Pulse Ox 97.7 F 96 H 20 123/69 96 08/16/17 12:00 08/16/17 12:00 08/16/17 12:00 08/16/17 12:00 08/16/17 06:00 Intake and Output: 08/16/17 08/16/17 06:59 18:59 Intake Total 360 Output Total 200 Balance 160 - Medications Medications: Current Medications Amlodipine Besylate (Norvasc) 5 mg PO DAILY [facility] Last Admin: 08/16/17 09:04 Dose: 5 mg Aspirin (Ecotrin) 81 mg PO DAILY [facility] Last Admin: 08/16/17 09:02 Dose: 81 mg Atorvastatin Calcium (Lipitor) 40 mg PO DAILY [facility] Last Admin: 08/16/17 09:04 Dose: 40 mg Carvedilol (Coreg) 12.5 mg PO DAILY [facility] Last Admin: 08/16/17 09:03 Dose: 12.5 mg Clopidogrel Bisulfate (Plavix) 75 mg PO DAILY [facility] Last Admin: 08/16/17 09:03 Dose: 75 mg Donepezil HCl (Aricept) 5 mg PO DAILY [facility] Last Admin: 08/16/17 09:03 Dose: 5 mg Doxycycline Hyclate (Doryx) 100 mg PO Q12 LYNDSEY PRN Reason: Protocol Last Admin: 08/16/17 09:03 Dose: 100 mg Fluticasone Propionate (Flonase) 1 actuation NS BID [facility] Last Admin: 08/16/17 09:05 Dose: 1 spr Furosemide (Lasix) 40 mg PO DAILY [facility] Last Admin: 08/16/17 09:03 Dose: 40 mg Levalbuterol HCl (Xopenex) 1.25 mg IH [id number] PRN PRN Reason: Shortness of Breath Last Admin: 08/16/17 07:55 Dose: 1.25 mg Loratadine (Claritin) 10 mg PO DAILY PRN PRN Reason: Allergy symptoms Last Admin: 08/16/17 09:04 Dose: 10 mg Montelukast Sodium (Singulair) 10 mg PO DAILY [facility] Last Admin: 08/16/17 09:04 Dose: 10 mg Mirabegron [ Myrbetriq] 50 Mg ( Home Med) 50 mg PO DAILY [facility] Last Admin: 08/16/17 12:03 Dose: Not Given Oxymetazoline HCl (Afrin 0.05%) 0 ml NS Q12H [facility] Last Admin: 08/16/17 12:32 Dose: 1 spr Promethazine HCl/Dextromethorphan (Phenergan Dm Syrup) 5 ml PO Q6H PRN PRN Reason: Cough Last Admin: 08/15/17 21:16 Dose: 5 ml Ropinirole HCl (Requip) 0.25 mg PO BID [facility] Last Admin: 08/16/17 09:02 Dose: 0.25 mg - Labs Labs: 08/16/17 06:30 08/16/17 06:00 PT 13.4 SECONDS (9.4-12.5) H 08/14/17 16:30 INR 1.17 (0.93-1.08) H 08/14/17 16:30 APTT 35.9 Seconds (25.1-36.5) 08/14/17 16:30 - Constitutional Appears: No Acute Distress - Head Exam Head Exam: NORMOCEPHALIC - Eye Exam Eye Exam: Normal appearance. absent: Scleral icterus - ENT Exam ENT Exam: Mucous Membranes Moist - Neck Exam Neck Exam: Normal Inspection - Respiratory Exam Respiratory Exam: NORMAL BREATHING PATTERN. absent: Wheezes, Respiratory Distress - Cardiovascular Exam Cardiovascular Exam: +S1, +S2 - GI/Abdominal Exam GI & Abdominal Exam: Soft, Normal Bowel Sounds. absent: Guarding, Tenderness, Organomegaly, Rebound - Extremities Exam Extremities Exam: absent: Calf Tenderness Additional comments: right knee swelling improved - Neurological Exam Neurological Exam: Alert, Awake, Oriented x3 - Skin Skin Exam: Dry, Warm Assessment and Plan - Assessment and Plan (Free Text) Assessment: ASSESSMENT: S/p Fall, Dizziness Abdominal Pain Thrombocytopenia CAD, s/p cardiac stent on PLAVIX Right knee Pain COPD Right renal cyst PLAN: diet as tolerated monitor cbc, platelets and overt GI bleeding hematology evaluation for thrombobytopenia avoid any PPI at the moment for low platelets on Plavix & Aspirin Seen and discussed w/ Dr. Goldsmith. <Caryn Goldsmith V - Last Filed: 08/16/17 22:48> Objective - Vital Signs/Intake and Output Vital Signs (last 24 hours): Temp Pulse Resp BP Pulse Ox 97.7 F 96 H 20 123/69 96 08/16/17 12:00 08/16/17 12:00 08/16/17 12:00 08/16/17 12:00 08/16/17 06:00 Intake and Output: 08/16/17 08/17/17 18:59 06:59 Intake Total 840 Output Total 550 Balance 290 - Labs Labs: 08/16/17 06:30 08/16/17 06:00 PT 13.4 SECONDS (9.4-12.5) H 08/14/17 16:30 INR 1.17 (0.93-1.08) H 08/14/17 16:30 APTT 35.9 Seconds (25.1-36.5) 08/14/17 16:30 Attending/Attestation - Attestation I have personally seen and examined this patient.: Yes I have fully participated in the care of the patient.: Yes I have reviewed all pertinent clinical information, including history, physical exam and plan: Yes Notes (Text): This is an addendum to GI progress report dictated by the Woodworking Craftsman.The patient was seen and examined earlier. Medical records, lab studies, imagings were reviewed. Last 24 hours events reviewed. Agreed with the above treatment plan as outlined in Woodworking Craftsman 's notes the with the addition of the following Patient's platelets shows progressive I'll write for hematologic Continue Carafate Avoid indomethacin and other NSAIDs. Continue low-dose aspir Continue PPI 08/16/17 22:47
--- NOTE | 2017-08-16 14:40 | PN ---
DATE: 08/16/2017 PULMONARY PROGRESS NOTE REFERRING PHYSICIAN: Forest England MD SUBJECTIVE: She is sitting side of the bed, friends are at bedside. Night was unremarkable. Tolerated BiPAP for 5 hours or so. Still have stuffy runny nose, postnasal drip, but feels better. No nausea, vomiting, diarrhea, leg pain, or leg swelling. OBJECTIVE: GENERAL: In no acute distress. VITAL SIGNS: Temperature is 98, heart rate is 96, respiratory rate is 20, blood pressure 123/69, pulse ox 96% on nasal cannula. HEENT: Moist mucous membrane. Crowded airway. Mallampati score is 4. Mild maxillary area tenderness. LUNGS: Few scattered rhonchi. HEART: S1, S2. ABDOMEN: Soft and nontender. No organomegaly. EXTREMITIES: No edema. NEUROLOGIC: Awake and alert. Follows simple commands. MEDICATIONS: She is on Afrin 1 spray each nostril twice a day, Aricept 5 mg daily, also on Claritin 10 mg daily p.r.n., Coreg 12.5 mg daily, doxycycline 100 mg twice a day, Ecotrin 81 mg daily, Flonase 1 spray each nostril twice a day, Lasix 40 mg daily, Lipitor 40 mg daily, getting Myrbetriq, Norvasc 5 mg daily, Phenergan DM 5 mL every 6 hours p.r.n., Plavix 75 mg daily, Requip 0.25 mg twice a day, Singulair 10 mg daily, Xopenex inhaled every 6 hours. LABORATORY DATA: Shows hemoglobin 13.2, hematocrit 40.2, WBC 9.5, and platelets 91. Sodium 147, potassium 4.4, chloride 104, bicarbonate 29. BUN 30, creatinine 1. Glucose is 201. Calcium is 9.8, phosphorous 2.9, magnesium is 1.9. AST 34, ALT 39, alkaline phosphatase is 118. ProBNP 2280. Albumin is 4.1. Cholesterol is 84. TSH 0.59. IMPRESSION AND PLAN: Cardiac diastolic dysfunction with pulmonary hypertension with high proBNP, also has sinusitis, postnasal drip, chronic obstructive lung disease, there may be component of sleep apnea syndrome, rheumatoid arthritis, has been on methotrexate at one time. There is a right knee discomfort, probably chronic degenerative joint disease. Pulmonary point of view, she is doing okay. Encourage CPAP use. Keep head at 45 degrees. Continue montelukast, Flonase, bronchodilator, and antibiotics. Thank you and we will follow with you. Berenice Whitt MD
--- NOTE | 2017-08-16 16:26 | CARD ---
APPROVED REPORT EXAM: Two-dimensional and M-mode echocardiogram with Doppler and color Doppler. INDICATION Dyspnea Chest Pain 2D DIMENSIONS Left Atrium (2D)4.4 (1.6-4.0cm)IVSd1.2 (0.7-1.1cm) LVDd2.9 (3.9-5.9cm)PWd1.4 (0.7-1.1cm) LVDs2.2 (2.5-4.0cm)FS (%) 24.7 % LVEF (%)50.5 (>50%) M-Mode DIMENSIONS Aortic Root2.50 (2.2-3.7cm)Aortic Cusp Exc.0.80 (1.5-2.0cm) Aortic Valve AoV Peak Cpchccbb160.0cm/Erickson Peak GR.7mmHg Mitral Valve E/A ratio0.0 TDI E/Lateral E'0.0E/Medial E'0.0 Tricuspid Valve TR Peak [id number] [id number] Peak Gr.13mmHg [id number] LEFT VENTRICLE The left ventricle is normal size. There is mild concentric left ventricular hypertrophy. The left ventricular function is normal.EF-55% Septal motion consistent with conduction abnormality. Transmitral Doppler flow pattern is Grade II-pseudonormal filling dynamics. No left ventricle thrombus noted on this study. There is no ventricular septal defect visualized. There is no left ventricular aneurysm. There is no mass noted in the left ventricle. RIGHT VENTRICLE The right ventricle is normal size. There is normal right ventricular wall thickness. The right ventricular systolic function is normal. ATRIA The left atrium is mildly dilated. The right atrium size is normal. The interatrial septum is intact with no evidence for an atrial septal defect. AORTIC VALVE The aortic valve is calcified and displays decreased opening. There is mild aortic regurgitation. Aortic Sclerosis Vs Mild As There is no aortic valvular vegetation. MITRAL VALVE The mitral valve is mildly thickened but opens well. Mitral annular calcification is mild to moderate. Mitral regurgitation is mild. There is no mitral valve stenosis. There is no evidence of mitral valve prolapse. TRICUSPID VALVE The tricuspid valve leaflets are thickened , but open well. There is mild tricuspid regurgitation.RVSSP-31 mmof Hg. There is no tricuspid valve stenosis. There is no tricuspid valve prolapse or vegetation. PULMONIC VALVE The pulmonic valve is mildly thickened. There is trace to mild pulmonic valvular regurgitation. There is no pulmonic valvular stenosis. GREAT VESSELS The aortic root is normal in size. The ascending aorta is normal in size. The pulmonary artery is normal. The IVC is normal in size and collapses >50% with inspiration. PERICARDIAL EFFUSION There is no pleural effusion. There is no pericardial effusion. <Conclusion> The left ventricle is normal size. There is mild concentric left ventricular hypertrophy. The left ventricular function is normal.EF-55% There is mild aortic regurgitation. Aortic Sclerosis Vs Mild As Mitral regurgitation is mild. There is mild tricuspid regurgitation.RVSSP-31 mmof Hg. The IVC is normal in size and collapses >50% with inspiration. There is no pericardial effusion.
--- NOTE | 2017-08-17 00:30 | HP ---
REASON FOR ADMISSION: The patient had a syncopal episode, fell, and fell on her knee, followed by knee pain. She also mentions she has some abdominal pain, chest pain, short of breath and felt very weak. HISTORY OF PRESENT ILLNESS: An 81-year-old female with a history of COPD, coronary artery disease, multiple stents, hypertension, hypercholesterolemia, severe osteoarthritis, treated for rheumatoid with Arava. She came in with history of sick sinus syndrome in the past. She came in with a fall. She fell on her knee since she felt unsteady, and lightheaded and fell, hit her knees. She felt after that, some chest discomfort that resolved by itself after 10 minutes, and she also felt short of breath. She has been coughing since the last couple of days, but no phlegm. No nausea. No vomiting. No wheezing. No fever. No chills. PAST MEDICAL HISTORY: As I mentioned above, sick sinus syndrome, coronary artery disease, hypertension, permanent pacemaker, history of gait instability, history of hypercholesterolemia, COPD, asthma, acid reflux, knee replacement. ALLERGIES: CODEINE, IODINATED CONTRAST, ORAL AND IV DYE, LEVAQUIN AND ALBUTEROL MAKES HER TACHYCARDIC. REVIEW OF SYSTEMS: As in the present illness. GENERAL: Weakness and urinary incontinence; otherwise, negative. CARDIOPULMONARY: Chest pain and short of breath. MUSCULOSKELETAL: Neck pain, back pain and knee arthritis pain. MEDICATIONS: At home, she takes multiple medications. She takes calcium, vitamin D, Arava 20 mg p.o. daily, Aricept 5 mg daily, Requip 0.25 mg b.i.d., Mobic 15 mg p.o. daily, Norvasc 5 mg daily, Singulair 10 mg, Myrbetriq 50 mg p.o. daily, once a day, Coreg 12.5 mg p.o. b.i.d., Lipitor 40 every night, Plavix 75 once a day, aspirin 81 once a day. PHYSICAL EXAMINATION: GENERAL: The patient was seen in the telemetry floor. She seems alert, awake, oriented x3, comfortable, walking with a walker and seems stable. VITAL SIGNS: Temperature 98.5, heart rate 80, blood pressure 105/64, respirations 16. HEENT: Head and neck exam normal. No JVD. No thyromegaly. CHEST: Cleared bilaterally. CARDIAC: First and second sounds normal. ABDOMEN: Soft and nontender. EXTREMITIES: There is no edema. There is mild tenderness in the right knee. No effusion. No hotness. No swelling. NEUROLOGICAL: Normal. LABORATORY DATA: The patient had a white count of 6.6, , platelets 87. PT, PTT was within normal range. Chemistry noted for sodium 146, potassium is 3.5, chloride 109, bicarb 28, BUN 26, creatinine 1.1. Liver enzymes seems within normal range, except bilirubin slightly elevated at 1.5. ALT is 39, normal. AST 42, a little bit high. The patient has proBNP, it is 2770. Lipase was normal. The patient also had x-rays of the knee, no fractures. Head CT was negative for any bleed. She also had a chest x-ray, which shows no active disease, clear lungs. She had pacemaker device. CT scan of the abdomen and pelvis was negative except for the patient has renal cyst, we will follow up on that. IMPRESSION AND PLAN: 1. An 81-year-old female with syncope, dizzy, unsteady, had trauma to her knee. She complains of chest pain, abdominal pain with weakness. We will admit the patient for observation. We will get a Cardiology consult by Dr. Maravilla. We will repeat troponin, BMP, repeat lab in the morning. 2. Dyspnea with coughing. We will get Dr. Whitt, Pulmonary consult due to patient is on Xopenex and the patient had sleep apnea. 3. Hypercholesterolemia, hypertension. Resume medications, Lipitor and Coreg. Continue Plavix and aspirin. 4. The patient does have urinary incontinence, gait disorder, get physical therapy, resume Myrbetriq, the medications she is taking. 5. Thrombocytopenia, low platelets. She will get Hematology to see the patient's low platelets. She does have reaction to Arava in the past. I am going to give her Solu-Medrol 40 mg one time and get the Hematology consult to see and evaluate the low platelet. She did respond to prednisone in the past beautifully and was started on Arava. We have to speak with the armor reconnaissance specialist and follow up on that was with marbleizing machine tender. At this time, continue current therapy. Follow up clinically. Forest England MD
--- NOTE | 2017-08-18 08:41 | DS ---
HISTORY OF PRESENT ILLNESS: Patient is seen walking with the walker, stable, no falls, no other complaints except a urinary incontinence that seems intermittently getting worse. Patient seen by urologist in the past, Dr. Hawkins. Patient currently has no chest pain. She had an echo done and she was cleared by other consultants to be discharged. PHYSICAL EXAMINATION: VITAL SIGNS: As follows, temperature 97.7, heart rate 72, blood pressure 141/88, respirations 20, sat 95% on room air. HEAD AND NECK: Normal. No JVD. No thyromegaly. CHEST: Clear bilaterally. CARDIAC: First sound and second sound normal. ABDOMEN: Soft, nontender. EXTREMITIES: No edema. NEUROLOGIC: Normal. Alert, awake, oriented x3. Walking, moves all extremities. LABORATORY DATA: White count 9.5, hemoglobin 16.2, hematocrit 40.2; platelets up to 91, from 73 it went up to 91 platelet count was 94. Patient also had PT and PTT which were normal. Her urinalysis was negative. Patient also had a renal ultrasound because of questionable cyst in the right kidney and it was small right kidney cyst, a complex cyst, needs followup, ultrasound of the kidneys in the next few months. Patient was explained those findings. Also patient had a CT abdomen and pelvis which is noted for the kidney cyst; otherwise negative, no acute findings. Patient had electrocardiogram which was sinus rhythm. Also she had knee x-ray which shows no acute findings, no swelling, no effusions. She also had an echocardiogram before being discharged, read by Dr. Maravilla, and it was good LV function, 55% to 60%, mild concentric LVH, and mild aortic regurgitation, mild mitral regurgitation, aortic valve sclerosis, and no vegetations, no masses, and no other findings. Patient cleared to be discharged. Patient also had CT abdomen which shows cholecystectomy, diverticuli in the colon and kidney cysts; otherwise, negative. DISCHARGE DIAGNOSES: 1. Recurrent falls versus syncope. Patient does have a history of sinus bradycardia with symptoms of dizziness. Currently she has a permanent pacemaker. 2. Gait disorder. Continue physical therapy, already consulted physical therapy to be done as outpatient at home by the nurse. 3. Hypertension. 4. Hypercholesterolemia. 5. Coronary artery disease with multiple stenting. 6. Mild aortic regurgitation with sclerotic aortic valve. 7. Urinary incontinence. We will continue current medication. I added Detrol to the other medicine . 8. Continue all other medications except Arava due to association with low platelets. Discussed with Dr. Velasquez before discharge. 9. Thrombocytopenia. Etiology probably drug induced. Patient does have history of rheumatoid. I explained the patient to stop Arava and we will discuss with on outpatient consult. 10. 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 Continue current therapy. Follow up with automobile mechanic supervisor as outpatient. PLAN: Continue current therapy. No Arava. Continue all medications plus Detrol. Forest England MD
== END 2017-08-16 17:54 | disposition home or self-care (01) ==
LOC: ED 15:09 → ERH 19:16 → 2RNO 21:23
PROVIDERS: ADMIT Internal Medicine; ATTEND Internal Medicine
DX: R55 Syncope and collapse (principal); D69.6 Thrombocytopenia, unspecified; E78.00 Pure hypercholesterolemia, unspecified; G30.9 Alzheimer's disease, unspecified; F02.80 Dementia in other diseases classified elsewhere, unspecified severity, without behavioral disturbance, psychotic disturbance, mood disturbance, and anxiety; G47.30 Sleep apnea, unspecified; I08.1 Rheumatic disorders of both mitral and tricuspid valves; I11.0 Hypertensive heart disease with heart failure; I25.10 Atherosclerotic heart disease of native coronary artery without angina pectoris; I27.20 Pulmonary hypertension, unspecified; J32.9 Chronic sinusitis, unspecified; J98.11 Atelectasis; K21.9 Gastro-esophageal reflux disease without esophagitis; K57.30 Diverticulosis of large intestine without perforation or abscess without bleeding; M06.9 Rheumatoid arthritis, unspecified; M47.9 Spondylosis, unspecified; M85.80 Other specified disorders of bone density and structure, unspecified site; N28.1 Cyst of kidney, acquired; R32 Unspecified urinary incontinence; W19.XXXA Unspecified fall, initial encounter; Z53.20 Procedure and treatment not carried out because of patient's decision for unspecified reasons; Z79.82 Long term (current) use of aspirin; Z79.899 Other long term (current) drug therapy; Z87.891 Personal history of nicotine dependence; Z95.0 Presence of cardiac pacemaker; Z95.5 Presence of coronary angioplasty implant and graft; Z96.651 Presence of right artificial knee joint; Z88.5 Allergy status to narcotic agent; Z88.8 Allergy status to other drugs, medicaments and biological substances; Z88.1 Allergy status to other antibiotic agents; Z91.041 Radiographic dye allergy status; R07.89 Other chest pain
CPT/HCPCS: 36415; 70450; 71045; 73560; 73562; 74176; 76770; 80048; 80053; 80061; 81001; 82550; 83036; 83615; 83690; 83735; 83880; 84100; 84443; 84484; 85025; 85027; 85610; 85730; 93005; 93306; 94640; 94660; 96374; 96375; 97116; 97161; 99285; G0378; G8978; G8979; G8980; J1940; J2920

== ENCOUNTER 2018-02-12 13:03 | Emergency (ER) | payer MEDICARE ==
[2018-02-12 13:18] VITALS: BMI 22.0
[2018-02-12 13:19] VITALS: TEMP 97.5
--- NOTE | 2018-02-12 14:27 | ED PDOC ---
Arrival/HPI - General Chief Complaint: Dizziness/Lightheaded Time Seen by Provider: 02/12/18 13:22 Historian: Patient - History of Present Illness Narrative History of Present Illness (Text): 02/12/18 14:23 A 82 year old female, whose past medical history includes cardiac arrhythmia, emphysema, pneumonia, respiratory tract infection, herniated disc, hard of hearing, anemia, and dermatitis, presents to the emergency department c omplaining of 4 episodes of dizziness upon waking up this morning. Dizziness occurs mostly with movement/ambulating. Patient reports also experiencing left and right side neck pain; and top and back side headache. Headache is not worst in patient's life, was gradual onset. Patient denies any visual changes, tinnitus, neck stiffness, appetite changes, fever, chills, cough, chest pain, shortness of breath, urinary symptoms, or any other complaints at this time. Past Medical History - Provider Review Nursing Documentation Reviewed: Yes - Infectious Disease Hx of Infectious Diseases: None - Tetanus Immunization Tetanus Immunization: Unknown - Past Medical History Past Medical History: No Previous - Cardiac Hx Cardiac Arrhythmia: Yes Hx Circulatory Problems: No Hx Heart Murmur: No Hx Heart Transplant: No Hx Internal Defibrillator: No Hx Mitral Valve Prolapse: No Hx Peripheral Edema: No - Pulmonary Hx Bronchitis: No Hx Emphysema: Yes Hx Pneumonia: Yes Hx Respiratory Aspiration: No Hx Respiratory Tract Infection: Yes Hx Sleep Apnea: No - Neurological Hx Neurological Disorder: Yes (herniated disc) Hx Alzheimer's Disease: No HX Cerebrovascular Accident: No Hx Dizziness: No Hx Meningitis: No Hx Migraine: No Hx Parkinson's Disease: No - HEENT Hx Blind: No Hx Cataracts: Yes Hx Deafness: Yes (Hard of hearing) Hx Difficulty Chewing: No Hx Epistaxis: No Hx Glaucoma: No Hx Macular Degeneration: No - Renal Hx Renal Disorder: No Hx Dialysis: No Hx Kidney Stones: No Hx Neurogenic Bladder: No Hx Pyelonephritis: No Hx Renal Cancer: No Hx Renal Failure: No - Endocrine/Metabolic Hx Adrenal Cancer: No Hx Diabetes Insipidus: No Hx Diabetes Mellitus Type 1: No Hx Diabetes Mellitus Type 2: No Hx Hyperthyroidism: No Hx Hypothyroidism: No Hx Systemic Lupus Erythematosus: No - Hematological/Oncological Hx Blood Disorders: Yes Hx AIDS: No Hx Anemia: Yes Hx Cancer: No Hx Chemotherapy: No Hx Cirrhosis: No Hx Hemophilia: No Hx Hepatitis A: No Hx Hepatitis B: No Hx Hepatitis C: No Hx Metastasis: No Hx Shingles: No Hx Sickle Cell Disease: No Hx Unexplained Bleeding: No - Integumentary Hx Dermatological Disorder: Yes (dermatitis) Hx Basal Cell Carcinoma: No Hx Eczema: No Hx Melanoma: No Hx Psoriasis: No Hx Squamous Cell Carcinoma: No - Musculoskeletal/Rheumatological Hx Fractures: No Hx Gout: No Hx Myasthenia Gravis: No Hx Osteomyelitis: No Hx Osteoporosis: No Hx Rhabdomyolysis: No Hx Spinal Stenosis: No Hx Unsteady Gait: Yes - Gastrointestinal Hx Gastrointestinal Disorders: Yes Hx Colostomy: Yes (reversal) Hx Crohn's Disease: No Hx Diverticulitis: No Hx Gall Bladder Disease: Yes Hx Gastrointestinal Ulcer: No Hx Ileostomy: No Hx Liver Failure: No Hx Pancreatitis: No HX Swallowing Problems: No - Genitourinary/Gynecological Hx Hematuria: No Hx Incontinence: Yes Hx Prostate Problems: No Hx Urinary Tract Infection: No - Psychiatric Hx Psychophysiologic Disorder: Yes Hx Anxiety: Yes Hx Bipolar Disorder: No Hx Depression: No Hx Emotional Abuse: No Hx Hallucinations: No Hx Panic Disorder: No Hx Post Traumatic Stress Disorder: No Hx Psychosis: No Hx Physical Abuse: No Hx Schizophrenia: No Hx Sexual Abuse: No Hx Substance Use: No - Past Surgical History Past Surgical History: Non-Contributing - Surgical History Hx Amputation: No Hx Appendectomy: No Hx Coronary Stent: Yes Hx Gastric Bypass Surgery: No Hx Hysterectomy: No Hx Kidney Transplant: No Hx Liver Transplant: No Hx Mastectomy: No Hx Musculoskeletal Surgery: Yes (right knee , right rotator cuff) Hx Open Heart Surgery: No Hx Orthopedic Surgery: Yes Hx Splenectomy: No Hx Valve Replacement: No - Anesthesia Hx Anesthesia Reactions: No Hx Malignant Hyperthermia: No - Suicidal Assessment Feels Threatened In Home Enviroment: No Family/Social History - Physician Review Nursing Documentation Reviewed: Yes Family/Social History: No Known Family HX Smoking Status: Former Smoker Hx Alcohol Use: No Hx Substance Use: No Hx Substance Use Treatment: No Allergies/Home Meds Allergies/Adverse Reactions: Allergies codeine Allergy (Mild, Verified 06/28/17 11:22) RASH Iodinated Contrast- Oral and IV Dye Allergy (Verified 07/04/17 09:31) SHORTNESS OF BREATH levofloxacin [From Levaquin] Allergy (Verified 06/28/17 11:22) ANAPHYLAXIS albuterol Adverse Reaction (Verified 06/28/17 11:22) DIZZINESS Home Medications: Home Meds Medication Instructions Recorded Confirmed Aspirin [Adult Low Dose Aspirin EC] 81 mg PO DAILY 06/28/17 02/12/18 Atorvastatin [Lipitor] 40 mg PO DAILY 06/28/17 02/12/18 Carvedilol [Coreg] 12.5 mg PO BID 06/28/17 02/12/18 Cetirizine HCl [All Day Allergy 10 mg PO DAILY PRN 06/28/17 02/12/18 Relief] Clopidogrel [Plavix] 75 mg PO DAILY 06/28/17 02/12/18 Donepezil [Aricept] 5 mg PO DAILY 06/28/17 02/12/18 amLODIPine [Norvasc] 5 mg PO BID 06/28/17 02/12/18 Famotidine [Heartburn Prevention] 20 mg PO DAILY 02/12/18 02/12/18 Review of Systems - Physician Review All systems were reviewed & negative as marked: Yes - Review of Systems Constitutional: absent: Fevers, Night Sweats Eyes: absent: Vision Changes Respiratory: absent: SOB, Cough Cardiovascular: absent: Chest Pain Gastrointestinal: absent: Abdominal Pain, Diarrhea, Nausea, Vomiting, Appetite Changes Genitourinary Female: absent: Urine Output Changes Musculoskeletal: Neck Pain (left and right side pain; no stiffness.) Neurological: Headache, Dizziness (4 episodes) Physical Exam - Physical Exam Narrative Physical Exam (Text): PE: Gen: NAD, cooperative, well appearing, non-toxic. Head: NCAT. HEENT: EYES: PERRL, EOMI, conjunctiva clear, no nystagmus EARS: TMs clear MOUTH: moist MM, posterior pharynx without erythema or exudate, uvula midline. CV: (+) S1S2, RRR, no M/G/R LUNGS: CTA B/L, No W/R/R, good air movement Abd: Soft, NTTP, no guarding, rebound or rigidity. Neuro: AAO x 3, GCS 15, CN 2-12 intact, motor and sensory grossly intact, 5/5 muscle strength B/L UE's and LE's. ext: no cyanosis or edema Back: Trapezius tenderness bilaterally Vital Signs Reviewed: Yes Vital Signs Temp Pulse Resp BP Pulse Ox 02/12/18 13:18 97.5 F L 79 16 138/83 98 Temperature: Afebrile Blood Pressure: Normal Pulse: Regular Respiratory Rate: Normal Appearance: Positive for: Well-Appearing, Non-Toxic, Comfortable Pain Distress: None Mental Status: Positive for: Alert and Oriented X 3 Medical Decision Making ED Course and Treatment: 02/12/18 14:26 Impression: 82 year old female with 4 episodes of dizziness, left and right side neck pain; and top and back side headache. Plan: -- EKG -- Head CT -- Chest X-ray -- Labs -- Urine Culture -- Urinalysis -- Reassess and disposition Progress Notes: EKG: Ordered, reviewed, and independently interpreted the EKG. Rate : 71 BPM Rhythm : Pacemaker Interpretation : No ST-segment elevations or depressions, no T-wave inversions, normal intervals. Comparison : No previous EKG for comparison. 02/12/2018 14:49 Chest X-ray IMPRESSION: No active disease. Dictator: Javid West MD 02/12/18 17:27 Orthostatic vital signs are negative. 02/12/18 17:[address] Dela Cruz, who is aware and agrees to discharge patient with follow-up instructions with him tomorrow. - RAD Interpretation Radiology Orders: 02/12/18 13:58 HEAD W/O CONTRAST [CT] Stat 02/12/18 13:59 CHEST PORTABLE [RAD] Stat - Scribe Statement The provider has reviewed the documentation as recorded by the Damian Powers Provider Scribe Attestation: All medical record entries made by the Scribe were at my direction and personally dictated by me. I have reviewed the chart and agree that the record accurately reflects my personal performance of the history, physical exam, [facility] decision making, and the department course for this patient. I have also personally directed, reviewed, and agree with the discharge instructions and disposition. Disposition/Present on Arrival - Present on Arrival Any Indicators Present on Arrival: No History of DVT/PE: No History of Uncontrolled Diabetes: No Urinary Catheter: No History of Decub. Ulcer: No History Surgical Site Infection Following: None - Disposition Have Diagnosis and Disposition been Completed?: Yes Diagnosis: Dizziness, Headache Disposition: HOME/ ROUTINE Disposition Time: 17:41 Patient Plan: Discharge Discharge Instructions (ExitCare): Headache, Adult (DC), Dizziness, Nonvertigo, (DC) Referrals: Jose De Jesus HERNÁNDEZ,Max Corrigan MD [Family Provider] - Follow up with primary Forms: [employer] (Bulgarian)
--- NOTE | 2018-02-12 14:53 | RAD ---
Date of service: 02/12/2018 HISTORY: dizziness COMPARISON: 08/14/2017 FINDINGS: LUNGS: No active pulmonary disease. PLEURA: No significant pleural effusion identified, no pneumothorax apparent. CARDIOVASCULAR: No aortic atherosclerotic calcification present. Normal cardiac size. No pulmonary vascular congestion. Single lead pacemaker OSSEOUS STRUCTURES: No significant abnormalities. VISUALIZED UPPER ABDOMEN: Normal. OTHER FINDINGS: None. IMPRESSION: No active disease.
[2018-02-12 15:10] LABS: INR 1.05; PARTIAL THROMBOPLASTIN TIME 28.4 Seconds (25.1-36.5)
[2018-02-12 15:23] LABS: BLOOD UREA NITROGEN 24 mg/dL (7-21); CALCIUM 9.4 mg/dL (8.4-10.5); GFR NON-AFRICAN AMERICAN 53
[2018-02-12 15:24] LABS: B-TYPE NATRIURETIC PEPTIDE 328 pg/mL (0-450); TROPONIN I 0.01 ng/mL
[2018-02-12 15:58] LABS: BASO # 0.09 K/mm3 (0.0-2.0); BASO % 1.2 % (0.0-3.0); EOS # 0.6 (0.0-0.7); EOS % 8.2 % (1.5-5.0); GRAN # 4.44 (1.4-6.5); GRAN % 59.6 % (50.0-68.0); HEMOGLOBIN 15.3 g/dL (12.0-16.0); LYMPH % 26.6 % (22.0-35.0); MEAN CELL VOLUME 102.2 fl (80.0-105.0); MEAN CORPUSCULAR HEMOGLOBIN 36.9 pg (25.0-35.0); MEAN CORPUSCULAR HGB CONC 36.1 g/dl (31.0-37.0); MONO # 0.3 (0.1-0.6); MONO % 4.4 % (1.0-6.0); RBC 4.15 10^6/uL (3.5-6.1); RED CELL DISTRIBUTION WIDTH 19.4 % (11.5-14.5); WHITE BLOOD COUNT 7.5 10^3/uL (4.5-11.0)
[2018-02-12 17:17] LABS: URINE BILIRUBIN NEGATIVE (NEGATIVE); URINE BLOOD NEGATIVE (NEGATIVE); URINE GLUCOSE (UA) NEGATIVE (NEGATIVE); URINE LEUKOCYTE ESTERASE SMALL Leu/uL (NEGATIVE); URINE PROTEIN NEGATIVE mg/dL (<30 mg/dL); URINE UROBILINOGEN 0.2 E.U./dL (<1 E.U./dL)
[2018-02-12 17:18] LABS: URINE APPEARANCE CLEAR (CLEAR); URINE COLOR YELLOW (YELLOW)
--- NOTE | 2018-02-12 17:19 | CT ---
Date of service: 02/12/2018 PROCEDURE: CT HEAD WITHOUT CONTRAST. HISTORY: dizziness COMPARISON: Noncontrast head CT performed 08/14/17 TECHNIQUE: Axial computed tomography images were obtained through the head/brain without intravenous contrast. Radiation dose: Total exam DLP = 789.32 mGy-cm. This CT exam was performed using one or more of the following dose reduction techniques: Automated exposure control, adjustment of the mA and/or kV according to patient size, and/or use of iterative reconstruction technique. FINDINGS: HEMORRHAGE: No intracranial hemorrhage. BRAIN: Moderate atrophy with prominence of the ventricles and sulci noted. No mass effect or edema. Dense intracranial atherosclerosis. Moderate scattered periventricular and subcortical white matter hypodensities, which are nonspecific, but often seen with chronic microvascular ischemic disease. 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 Please note that MRI with diffusion imaging is more sensitive in the detection of acute ischemic event. VENTRICLES: No hydrocephalus. CALVARIUM: Hyperostosis frontalis interna. Calvarium intact. PARANASAL SINUSES: Unremarkable as visualized. No significant inflammatory changes. MASTOID AIR CELLS: Unremarkable as visualized. No inflammatory changes. OTHER FINDINGS: Bilateral cataract surgery. IMPRESSION: Moderate scattered nonspecific white matter changes and scattered basal ganglia ski make changes as described above. Moderate to significant volume loss. Additional findings as above.
[2018-02-12 17:24] LABS: URINE BACTERIA NEG (NEG); URINE RBC NEGATIVE /hpf (0-2); URINE WBC 0 - 2 /hpf (0-6)
[2018-02-12 18:08] VITALS: BP 124/78; PULSE 73; RESP 17; O2SAT 97
--- NOTE | 2018-02-12 20:21 | CARD ---
APPROVED REPORT Date of service: 02/12/2018 EKG Measurement Heart [id number] <Conclusion> Electronic ventricular pacemaker
== END 2018-02-12 18:11 | disposition home or self-care (01) ==
LOC: ED 13:03
DX: R42 Dizziness and giddiness (principal); R51 Headache; Z87.891 Personal history of nicotine dependence; J43.9 Emphysema, unspecified

== ENCOUNTER 2018-04-03 16:14 | Outpatient (CLI) | payer MEDICARE | END 2018-04-03 16:15 | disposition home or self-care (01) | LOC: CARDIO 16:14 ==

== ENCOUNTER 2018-06-29 13:09 | Inpatient (IN) | payer MEDICARE ==
[2018-06-29 13:10] VITALS: BMI 22.0
--- NOTE | 2018-06-29 13:52 | ED PDOC ---
Arrival/HPI - General Chief Complaint: Chest Pain Time Seen by Provider: 06/29/18 13:12 Historian: Patient, Caregiver - History of Present Illness Narrative History of Present Illness (Text): 06/29/18 13:47 An 82 year old female, whose past medical history includes cardiac arrhythmia, emphysema, pneumonia, respiratory tract infection, herniated disc, hard of hearing, anemia, and dermatitis, is brought into the emergency department via EMS with caregiver, for a complaint of unsteady gait and erythema to the lower extremities. Home caregiver states that they had an appointment today to see Dr. Ulloa for the erythematous lower extremities. The caregiver states that the patient was very unsteady on her feet, and did not want to risk her falling, so she decided to call EMS. The patient notes that she is experiencing a cough and headache. The caregiver stats that the patient often complains of chest pain, but not today. She denies fevers, chills, dizziness, chest pain, shortness of breath, dyspnea on exertion, abdominal pain, nausea, vomiting, diarrhea, back pain, neck pain, urinary/bowel changes, or any other complaint. PMD: Dr. Brandon Dela Cruz Time/Duration: Other (Today) Symptom Onset: Sudden Symptom Course: Unchanged Activities at Onset: Rest, Light Context: Home Past Medical History - Provider Review Nursing Documentation Reviewed: Yes - Infectious Disease Hx of Infectious Diseases: None - Tetanus Immunization Tetanus Immunization: Unknown - Past Medical History Past Medical History: No Previous - Cardiac Hx Cardiac Arrhythmia: Yes Hx Circulatory Problems: No Hx Heart Murmur: No Hx Heart Transplant: No Hx Internal Defibrillator: No Hx Mitral Valve Prolapse: No Hx Peripheral Edema: No - Pulmonary Hx Bronchitis: No Hx Emphysema: Yes Hx Pneumonia: Yes Hx Respiratory Aspiration: No Hx Respiratory Tract Infection: Yes Hx Sleep Apnea: No - Neurological Hx Neurological Disorder: Yes (herniated disc) Hx Alzheimer's Disease: No HX Cerebrovascular Accident: No Hx Dizziness: No Hx Meningitis: No Hx Migraine: No Hx Parkinson's Disease: No - HEENT Hx Blind: No Hx Cataracts: Yes Hx Deafness: Yes (Hard of hearing) Hx Difficulty Chewing: No Hx Epistaxis: No Hx Glaucoma: No Hx Macular Degeneration: No - Renal Hx Renal Disorder: No Hx Dialysis: No Hx Kidney Stones: No Hx Neurogenic Bladder: No Hx Pyelonephritis: No Hx Renal Cancer: No Hx Renal Failure: No - Endocrine/Metabolic Hx Adrenal Cancer: No Hx Diabetes Insipidus: No Hx Diabetes Mellitus Type 1: No Hx Diabetes Mellitus Type 2: No Hx Hyperthyroidism: No Hx Hypothyroidism: No Hx Systemic Lupus Erythematosus: No - Hematological/Oncological Hx Blood Disorders: Yes Hx AIDS: No Hx Anemia: Yes Hx Cancer: No Hx Chemotherapy: No Hx Cirrhosis: No Hx Hemophilia: No Hx Hepatitis A: No Hx Hepatitis B: No Hx Hepatitis C: No Hx Metastasis: No Hx Shingles: No Hx Sickle Cell Disease: No Hx Unexplained Bleeding: No - Integumentary Hx Dermatological Disorder: Yes (dermatitis) Hx Basal Cell Carcinoma: No Hx Eczema: No Hx Melanoma: No Hx Psoriasis: No Hx Squamous Cell Carcinoma: No - Musculoskeletal/Rheumatological Hx Fractures: No Hx Gout: No Hx Myasthenia Gravis: No Hx Osteomyelitis: No Hx Osteoporosis: No Hx Rhabdomyolysis: No Hx Spinal Stenosis: No Hx Unsteady Gait: Yes - Gastrointestinal Hx Gastrointestinal Disorders: Yes Hx Colostomy: Yes (reversal) Hx Crohn's Disease: No Hx Diverticulitis: No Hx Gall Bladder Disease: Yes Hx Gastrointestinal Ulcer: No Hx Ileostomy: No Hx Liver Failure: No Hx Pancreatitis: No HX Swallowing Problems: No - Genitourinary/Gynecological Hx Hematuria: No Hx Incontinence: Yes Hx Prostate Problems: No Hx Urinary Tract Infection: No - Psychiatric Hx Psychophysiologic Disorder: Yes Hx Anxiety: Yes Hx Bipolar Disorder: No Hx Depression: No Hx Emotional Abuse: No Hx Hallucinations: No Hx Panic Disorder: No Hx Post Traumatic Stress Disorder: No Hx Psychosis: No Hx Physical Abuse: No Hx Schizophrenia: No Hx Sexual Abuse: No Hx Substance Use: No - Past Surgical History Past Surgical History: Non-Contributing - Surgical History Hx Amputation: No Hx Appendectomy: No Hx Coronary Stent: Yes Hx Gastric Bypass Surgery: No Hx Hysterectomy: No Hx Kidney Transplant: No Hx Liver Transplant: No Hx Mastectomy: No Hx Musculoskeletal Surgery: Yes (right knee , right rotator cuff) Hx Open Heart Surgery: No Hx Orthopedic Surgery: Yes Hx Splenectomy: No Hx Valve Replacement: No - Anesthesia Hx Anesthesia: Yes Hx Anesthesia Reactions: No Hx Malignant Hyperthermia: No - Suicidal Assessment Feels Threatened In Home Enviroment: No Family/Social History - Physician Review Nursing Documentation Reviewed: Yes Family/Social History: No Known Family HX Smoking Status: Former Smoker Hx Alcohol Use: No Hx Substance Use: No Hx Substance Use Treatment: No Allergies/Home Meds Allergies/Adverse Reactions: Allergies codeine Allergy (Mild, Verified 06/28/17 11:22) RASH Iodinated Contrast- Oral and IV Dye Allergy (Verified 07/04/17 09:31) SHORTNESS OF BREATH levofloxacin [From Levaquin] Allergy (Verified 06/28/17 11:22) ANAPHYLAXIS albuterol Adverse Reaction (Verified 06/28/17 11:22) DIZZINESS Home Medications: Home Meds Medication Instructions Recorded Confirmed Aspirin [Adult Low Dose Aspirin EC] 81 mg PO DAILY 06/28/17 06/29/18 Atorvastatin [Lipitor] 40 mg PO DAILY 06/28/17 06/29/18 Carvedilol [Coreg] 12.5 mg PO BID 06/28/17 06/29/18 Donepezil [Aricept] 5 mg PO DAILY 06/28/17 06/29/18 Famotidine [Heartburn Prevention] 20 mg PO BID 02/12/18 06/29/18 Cetirizine HCl [All Day Allergy 1 tab PO HS 06/29/18 06/29/18 Relief] Magnesium Oxide [Magnesium] 1 tab PO DAILY 06/29/18 06/29/18 Meclizine [Meclizine*] 25 mg PO TID 06/29/18 06/29/18 Review of Systems - Physician Review All systems were reviewed & negative as marked: Yes - Review of Systems Constitutional: absent: Fevers Respiratory: Cough. absent: SOB Cardiovascular: absent: Chest Pain, PRIEST Gastrointestinal: absent: Abdominal Pain, Stool Changes, Diarrhea, Nausea, Vomiting Musculoskeletal: absent: Back Pain, Neck Pain Neurological: Headache. absent: Dizziness Physical Exam Vital Signs Reviewed: Yes Vital Signs Temp Pulse Resp BP Pulse Ox 06/29/18 13:36 98.7 F 62 18 149/76 100 06/29/18 13:26 98.7 F Temperature: Afebrile Blood Pressure: Hypertensive Pulse: Regular Respiratory Rate: Normal Appearance: Positive for: Well-Appearing, Non-Toxic, Comfortable Pain Distress: None Mental Status: Positive for: Alert and Oriented X 3 - Systems Exam Head: Present: Atraumatic, Normocephalic Pupils: Present: PERRL Extroacular Muscles: Present: EOMI Conjunctiva: Present: Normal Mouth: Present: Dry Neck: Present: Normal Range of Motion Respiratory/Chest: Present: Clear to Auscultation, Good Air Exchange. No: Respiratory Distress, Accessory Muscle Use Cardiovascular: Present: Regular Rate and Rhythm, Normal S1, S2. No: Murmurs Abdomen: No: Tenderness, Distention, Peritoneal Signs Back: Present: Normal Inspection Upper Extremity: Present: Normal Inspection. No: Cyanosis, Edema Lower Extremity: No: NORMAL PULSES (Normal dorsalis pedis on the right. Could not feel pulses on the left. ) Neurological: Present: GCS=15, CN II-XII Intact, Speech Normal Skin: Present: Warm, Dry, Normal Color. No: Rashes Psychiatric: Present: Alert, Oriented x 3, Normal Insight, Normal Concentration Medical Decision Making ED Course and Treatment: 06/29/18 13:54 Impression: 82 year old female is brought into the emergency department for further evaluation of unsteady gait and erythematous lower extremities. Plan: -- EKG -- Chest X-ray -- Urinalysis -- Labs --Lasix -- Blood Culture -- IV Fluids -- Reassess and disposition Progress Notes: 06/29/18 15:11: Labs reviewed with leukocytosis of 13 with shift with elevated BNP of 3500. Chest X-ray reveals vascular congestion and cardiomegaly. Case discussed with Dr. England(internal medicine). He accepts patient to his service. Would like Dr. Maravilla (cardiology) consult. 06/29/18 15:54 Upon interrogation, patient states she changed PCP's in March and reports she had last seen Dr. Allie Dela Cruz(PCP). Called and discussed case with Dr. Dela Cruz who accepts the patient onto his service. - Lab Interpretations Lab Results: 06/29/18 14:26 06/29/18 14:26 Lab Results 06/29/18 14:30: pO2 30, VBG pH 7.42, VBG pCO2 45.0, VBG HCO3 29.2 H, VBG Total CO2 30.6 H, VBG O2 Sat (Calc) 60.7, VBG Base Excess 4.0 H, VBG Potassium 5.3 H, Glucose 141 H, Lactate 2.0, FiO2 21.0, Sodium 138.0, Chloride 106.0, Venous Blood Potassium 5.3 H 06/29/18 14:26: PT 14.5 H, INR 1.31, APTT 43.7 H 06/29/18 14:26: Sodium 142, Potassium 4.3, Chloride 105, Carbon Dioxide 28, Anion Gap 13, BUN 20, Creatinine 1.0, Est GFR ( Amer) > 60, Est GFR (Non- Af Amer) 53, Random Glucose 132 H, Calcium 9.5, Magnesium 2.0, Total Bilirubin 2.5 H, AST 37 H, ALT 36, Alkaline Phosphatase 89, Troponin I < 0.01, NT-Pro-B Natriuret Pep 3480 H, Total Protein 6.4, Albumin 3.7, Globulin 2.7, Albumin/Globulin Ratio 1.4 06/29/18 14:26: WBC 13.0 H D, RBC 4.47, Hgb 15.4, Hct 44.2, MCV 98.9 D, MCH 34.5, MCHC 34.8, RDW 19.7 H, Plt Count 82 L, MPV 9.6, Neut % (Auto) 89.2 H, Lymph % (Auto) 6.3 L, Noble % (Auto) 3.3, Eos % (Auto) 0.7 L, Baso % (Auto) 0.5, Lymph # (Auto) 0.8 L, Noble # (Auto) 0.4, Eos # (Auto) 0.1, Baso # (Auto) 0.07, Absolute Neuts (auto) 11.54 H I have reviewed the lab results: Yes - RAD Interpretation Narrative RAD Interpretations (Text): Chest X-ray Signed By: Amol Flores MD Dictated Date/Time: 06/29/18 2106 Impression:No active disease. No significant interval change compared to the prior examination (s). - EKG Interpretation EKG Interpretation (Text): 06/29/18 14:12: EKG shows paced rhythm at 69 BPM. Interpreted by ED Physician: Yes Type: 12 lead EKG - Scribe Statement The provider has reviewed the documentation as recorded by the Franibfran Alcazar Provider Scribe Attestation: All medical record entries made by the Scribe were at my direction and personally dictated by me. I have reviewed the chart and agree that the record accurately reflects my personal performance of the history, physical exam, medical decision making, and the department course for this patient. I have also personally directed, reviewed, and agree with the discharge instructions and disposition. Disposition/Present on Arrival - Present on Arrival History of DVT/PE: No History of Uncontrolled Diabetes: No Urinary Catheter: No History of Decub. Ulcer: No History Surgical Site Infection Following: None - Disposition
[2018-06-29] MEDS ORDERED: Sodium Chloride 0.9% 1,000 ML IV STA (13:59)
[2018-06-29 14:37] LABS: BASO # 0.07 K/mm3 (0.0-2.0); BASO % 0.5 % (0.0-3.0); EOS # 0.1 (0.0-0.7); EOS % 0.7 % (1.5-5.0); HEMOGLOBIN 15.4 g/dL (12.0-16.0); LYMPH # 0.8 (1.2-3.4); LYMPH % 6.3 % (22.0-35.0); MEAN CELL VOLUME 98.9 fl (80.0-105.0); MEAN CORPUSCULAR HEMOGLOBIN 34.5 pg (25.0-35.0); MEAN CORPUSCULAR HGB CONC 34.8 g/dl (31.0-37.0); MEAN PLATELET VOLUME 9.6 fl (7.0-11.0); MONO # 0.4 (0.1-0.6); MONO % 3.3 % (1.0-6.0); RBC 4.47 10^6/uL (3.5-6.1); RED CELL DISTRIBUTION WIDTH 19.7 % (11.5-14.5)
[2018-06-29 14:38] LABS: VENOUS BLOOD GAS PO2 30 mm/Hg (30-55); VENOUS BLOOD PH 7.42 (7.32-7.43)
[2018-06-29 14:50] LABS: ALB/GLOB RATIO 1.4 (1.1-1.8); ALBUMIN 3.7 g/dL (3.0-4.8); ALT/SGPT 36 U/L (7-56); AST/SGOT 37 U/L (14-36); BLOOD UREA NITROGEN 20 mg/dL (7-21); CALCIUM 9.5 mg/dL (8.4-10.5); GFR NON-AFRICAN AMERICAN 53
[2018-06-29 15:01] LABS: B-TYPE NATRIURETIC PEPTIDE 3480 pg/mL (0-450); TROPONIN I < 0.01 ng/mL
[2018-06-29 15:02] LABS: INR 1.31; PARTIAL THROMBOPLASTIN TIME 43.7 Seconds (26.9-38.3); PROTHROMBIN TIME 14.5 SECONDS (9.4-12.5)
--- NOTE | 2018-06-29 15:19 | RAD ---
Date of service: 06/29/2018 HISTORY: Shortness of breath. COMPARISON: 02/12/2018. FINDINGS: LUNGS: No active pulmonary disease. PLEURA: No significant pleural effusion identified, no pneumothorax apparent. CARDIOVASCULAR: No radiographic findings to suggest acute or significant cardiovascular disease. Position/ configuration of pacemaker Atherosclerotic calcifications identified primarily aortic arch. OSSEOUS STRUCTURES: No significant abnormalities. VISUALIZED UPPER ABDOMEN: Normal. OTHER FINDINGS: None. IMPRESSION: No active disease. No significant interval change compared to the prior examination(s).
[2018-06-29 17:39] LABS: PH,URINE 5.5 (4.7-8.0); URINE BILIRUBIN MODERATE (NEGATIVE); URINE BLOOD NEGATIVE (NEGATIVE); URINE GLUCOSE (UA) NEGATIVE (NEGATIVE); URINE LEUKOCYTE ESTERASE TRACE Leu/uL (NEGATIVE); URINE PROTEIN >=300 mg/dL (<30 mg/dL)
[2018-06-29 17:41] LABS: URINE APPEARANCE SL CLOUDY (CLEAR); URINE COLOR STRAW (YELLOW)
[2018-06-29] MEDS ORDERED: Enoxaparin 40 mg Syringe SC STA (17:41)
[2018-06-29 18:01] LABS: URINE RBC 0 - 2 /hpf (0-2)
[2018-06-29 20:57] LABS: TROPONIN I < 0.01 ng/mL
--- NOTE | 2018-06-30 00:52 | CON ---
DATE: 06/29/2018 CONSULT SERVICE: Cardiology. REASON FOR CONSULTATION AND FOLLOWUP: Cardiac evaluation, history of coronary artery disease, history of paroxysmal atrial fibrillation, history of atrial fibrillation, admitted with headache, chest pain, pain all over the body, and feeling very weak and lethargic. BRIEF CLINICAL HISTORY: An 82-year-old female with past medical history significant for paroxysmal atrial fibrillation, sick sinus syndrome, multiple pauses, history of loop recorder and then upgraded to pacemaker because there was a long pause, history of coronary artery disease status post stent, history of COPD, laryngeal dysfunction, swallowing difficulty, who is supposed to come to see Dr. Eldon Ulloa because of the redness of the both feet to rule out peripheral arterial disease. Per the patient, she was feeling very weak and lethargic. Caregiver says that the patient came to the kitchen and could not move and complaining of headache, chest pain, pain all over the body and weak, so brought here. Denies any chest pain now. Denies any shortness of breath. Denies any palpitations. Daughter is at the bedside, says an admitting blood pressure was 150/105. PAST MEDICAL HISTORY: Significant for sick sinus syndrome with implant of a permanent pacemaker. The patient had initially a loop recorder because of the recurrent syncope. Loop recorder shows 6-second pause so upgraded to pacemaker. History of coronary artery disease, history of multiple stents, history of COPD, history of laryngeal motility disorder, multiple episodes of dizziness, history of multiple falls, and gait instability. PREVIOUS CARDIAC WORKUP: As follows; the patient's most recent echocardiography done on 08/16/2017, that shows ejection fraction 55%, mild aortic regurgitation, aortic sclerosis, mild aortic stenosis, mild mitral regurgitation, mild tricuspid regurgitation, RV systolic pressure 31. EKG shows previous V-paced rhythm. Previous echo on 05/27/2015, shows LV function normal, mild aortic stenosis, [id number] mitral regurgitation, mild tricuspid regurgitation. Last stress test dated 08/20/2015, shows no reversible ischemia. Last catheterization because there was significant T inversion on 06/15/2016, on admission was new. The patient underwent cardiac catheterization dated 06/16/2016, that shows nonobstructive coronary artery disease limited only to proximal LAD, 55% stenosis. Old previous patent stent, circumflex is patent, stent is patent, ejection fraction 55%. EDP was in the range of 15, date of the cath was 06/16/2016. History of chronic COPD, history of echo as mentioned before. Previous echo 05/24/2016, ejection fraction 65%, RV severely dilated, moderately reduced RV function. LV function normal. No aortic regurgitation. Mild mitral regurgitation, [id number] tricuspid regurgitation, RV systolic pressure 46. SOCIAL HISTORY: Denies any smoking, denies any history of alcohol abuse. CURRENT MEDICATIONS: The patient at home was taking Meclizine 25 mg p.o. t.i.d., , Famotidine 20 mg p.o. b.i.d, Aricept 5 mg daily, cetirizine one tablet p.o. at bedtime, Coreg, carvedilol 12.5 mg p.o. b.i.d., atorvastatin 40 mg p.o. daily, aspirin 81 mg daily. ALLERGIES: CODEINE, IODINATED CONTRAST, LEVAQUIN, AND ALBUTEROL. PHYSICAL EXAMINATION GENERAL: As follows; height of the patient 5 feet 3 inches, weight of the patient 133 pounds, body mass index 23.6 kg/m2. VITAL SIGNS: Temperature afebrile, heart rate 62, blood pressure 149/76. HEENT: PERRLA. Extraocular muscles intact. NECK: Supple, no carotid bruit or thyromegaly. CHEST: Clear to auscultation. HEART: S1, S2 regular. ABDOMEN: Soft. EXTREMITIES: Clubbing and cyanosis negative. LABORATORY DATA: WBC 13, hemoglobin 15.4, hematocrit 44.2, platelet count 82. Chemistry shows sodium 140, potassium 4.3, chloride 105, carbon dioxide 28, anion gap 13, BUN 20, creatinine 1, total bilirubin 2.5, AST 37, ALT 36, potassium 5.3. IMPRESSION: An 82-year-old female with past medical history significant for coronary artery disease, status post multiple stents in the past, history of recurrent syncope, status post loop recorder, found to be in a 6-second pause, sick sinus syndrome status post upgraded loop recorder to pacemaker, history of multiple stents, last catheterization 05/2016, because of significant T inversion that shows nonobstructive coronary artery disease, patent stent in left anterior descending, patent stent in the circumflex. Medical treatment recommended. Admitted with generalized weakness, shortness of breath, and headache as well as weakness of the leg. History of recent leg and feet some swelling but more redness and supposed to see Dr. Ulloa. History also of laryngeal dysphagia, history of chronic obstructive pulmonary disease, and coronary artery disease as mentioned. RECOMMENDATIONS: We will follow up serial CPK, so far troponin remains flat, no evidence of acute MT. EKG shows V-paced rhythm with underlying possible atrial fibrillation. First troponin remains negative. We will follow serial CPK, though chest pain appears atypical. Uncontrolled hypertension, we will start antihypertensive medication. Follow up with you. Thank you for providing us the opportunity in taking care of the patient, Darcy Mcguire. Berenice Maravilla MD
--- NOTE | 2018-06-30 03:08 | CARD ---
APPROVED REPORT Date of service: 06/29/2018 EKG Measurement Heart [id number] 360P [id number] <Conclusion> Poor data quality, interpretation may be adversely affected Electronic ventricular pacemaker
[2018-06-30 07:01] LABS: ALB/GLOB RATIO 1.2 (1.1-1.8); ALBUMIN 3.5 g/dL (3.0-4.8); ALT/SGPT 29 U/L (7-56); AST/SGOT 35 U/L (14-36); BLOOD UREA NITROGEN 19 mg/dL (7-21); CALCIUM 9.1 mg/dL (8.4-10.5); GFR NON-AFRICAN AMERICAN 53; HDL CHOLESTEROL 42 mg/dL (29-60)
[2018-06-30 07:11] LABS: TROPONIN I < 0.01 ng/mL
[2018-06-30 07:12] LABS: LDL CHOLESTEROL 57 mg/dL (0-129)
--- NOTE | 2018-06-30 07:12 | CP.PCM.PN ---
Subjective - Date & Time of Evaluation Date of Evaluation: 06/30/18 Time of Evaluation: 06:33 - Subjective Subjective: Awake, alert, no distress Reason for consultation and follow up:Cardiac evaluation and follow up of chest pain, admitted for generalized pain and weakness, lethargic, history of coronary artery disease, paroxysmal atrial fibrillation, PPM, hypertension. Seen and examined by me and Dr. Maravilla Objective - Vital Signs/Intake and Output Vital Signs (last 24 hours): Temp Pulse Resp BP Pulse Ox 97.9 F 63 20 153/84 H 97 06/30/18 00:00 06/30/18 06:00 06/30/18 00:00 06/30/18 00:00 06/30/18 00:00 - Medications Medications: Current Medications Aspirin (Ecotrin) 81 mg PO DAILY [facility] Atorvastatin Calcium (Lipitor) 40 mg PO DAILY [facility] Carvedilol (Coreg) 12.5 mg PO BID [facility] Last Admin: 06/29/18 18:48 Dose: 12.5 mg Donepezil HCl (Aricept) 5 mg PO DAILY [facility] Enoxaparin Sodium (Lovenox) 30 mg SC DAILY [facility]; Protocol Famotidine (Pepcid) 10 mg PO BID [facility] Hydralazine HCl (Apresoline) 10 mg PO QID PRN PRN Reason: For SBP>160 Magnesium Oxide (Mag-Ox) 400 mg PO DAILY [facility] - Labs Labs: 06/29/18 14:26 06/30/18 06:10 PT 14.5 SECONDS (9.4-12.5) H 06/29/18 14:26 INR 1.31 06/29/18 14:26 APTT 43.7 Seconds (26.9-38.3) H 06/29/18 14:26 - Constitutional Appears: Non-toxic, No Acute Distress - Head Exam Head Exam: NORMAL INSPECTION, NORMOCEPHALIC - Eye Exam Eye Exam: Normal appearance Pupil Exam: NORMAL ACCOMODATION - ENT Exam ENT Exam: Mucous Membranes Moist, Normal Exam Additional comments: hard of hearing - Respiratory Exam Respiratory Exam: Decreased Breath Sounds, Clear to Ausculation Bilateral, NORMAL BREATHING PATTERN - Cardiovascular Exam Cardiovascular Exam: +S1, +S2 Additional comments: PPM V pacing - GI/Abdominal Exam GI & Abdominal Exam: Soft, Normal Bowel Sounds - Extremities Exam Extremities Exam: Full ROM, Normal Capillary Refill - Neurological Exam Neurological Exam: Alert, Awake, Oriented x3 - Psychiatric Exam Psychiatric exam: Normal Affect, Normal Mood - Skin Skin Exam: Dry, Normal Color, Warm Assessment and Plan - Assessment and Plan (Free Text) Assessment: An 82 year old female who was brought to the ER due to generalized pain and weakness, lethargic. She is unsteady on her feet/gait. Also compaints of chest pain. History of coronary artery disease post cardiac stents, paroxysmal atrial fibrillation, multiple pauses, loop recorder was inserted and showed 6 second pauses thus permanent pacemaker inserted (sick sinus syndrome),emphysema, pneumo belgica, respiratory tract infection,COPD, herniated disc, hard of hearing, anemia, and dermatitis, laryngeal dysfunction/swallowing difficulty,history of multiple falls/gait instability. Echo done on 08/16/17 and showed LVEF 55%, mild aortic/mitral/tricuspid regurgitation,RVSP 31 mmHg. Cardiac cath done on 06/16/16 showed non obstructive coronary artery disease,limited proximal LAD 55- 60%all previously placed stents in LAD, circumflex, and RCA are patent. LVEF 65%. Troponin remains normal (0.01x 3). EKG V-pacing rhythm. Chest X ray, unremarkable. no evidence of acute coronary syndrome. No evidence of congestive heart failure. Atypical chest pain. Uncontrolled blood pressure on admission. Aggressive medical treatment. Control hypertension. Will repeat Echo. Plan: For Echo to evaluate LV function Denies chest pain or shortness of breath Heart rate-V pacing Blood pressure controlled Cardiac status stable On ASA 81 mg daily, Lipitor 40 mg daily, Coreg 12.5 mg BID,Lovenox 30 mg daily Continue current medications Continue current treatment Will discontinue telemetry Will follow up Plan and treatment discussed with Dr. Maravilla
[2018-06-30 08:07] VITALS: O2SAT 95
[2018-06-30 09:21] LABS: BASO # 0.09 K/mm3 (0.0-2.0); BASO % 0.8 % (0.0-3.0); EOS # 0.1 (0.0-0.7); EOS % 0.8 % (1.5-5.0); HEMOGLOBIN 14.4 g/dL (12.0-16.0); LYMPH # 1.6 (1.2-3.4); LYMPH % 14.6 % (22.0-35.0); MEAN CELL VOLUME 98.7 fl (80.0-105.0); MEAN CORPUSCULAR HEMOGLOBIN 36.4 pg (25.0-35.0); MEAN CORPUSCULAR HGB CONC 36.8 g/dl (31.0-37.0); MEAN PLATELET VOLUME 10.1 fl (7.0-11.0); MONO # 0.6 (0.1-0.6); MONO % 5.3 % (1.0-6.0); RBC 3.96 10^6/uL (3.5-6.1); WHITE BLOOD COUNT 10.7 10^3/uL (4.5-11.0)
[2018-06-30] MEDS ORDERED: Enoxaparin 30 mg Syringe SC SCH (10:00)
[2018-06-30] MEDS ORDERED: Magnesium Oxide 400 mg Tab UD PO SCH (10:00)
[2018-06-30 16:37] VITALS: BP 156/85; PULSE 65; RESP 16; TEMP 98.4
--- NOTE | 2018-07-01 15:49 | CARD ---
APPROVED REPORT Date of service: 06/30/2018 EXAM: Two-dimensional and M-mode echocardiogram with Doppler and color Doppler. INDICATION Chest Pain LVFX 2D DIMENSIONS Left Atrium (2D)5.0 (1.6-4.0cm)IVSd1.2 (0.7-1.1cm) LVDd4.0 (3.9-5.9cm)PWd1.2 (0.7-1.1cm) LVDs2.8 (2.5-4.0cm)FS (%) 30.4 % LVEF (%)58.4 (>50%) M-Mode DIMENSIONS Aortic Root3.10 (2.2-3.7cm)Aortic Cusp Exc.1.50 (1.5-2.0cm) Aortic Valve AoV Peak Vfhxtexo339.0cm/Erickson Peak GR.12mmHgAI P 1/2 Vexh224qg Mitral Valve MV E Lyodnhgq83.2cm/sMV A Xqbutttw97.2cm/sE/A ratio0.6 TDI Lateral E' Peak V6.14cm/sMedial E' Peak V4.48cm/sE/Lateral E'8.3 E/Medial E'11.4 Pulmonary Valve PV Peak Yigepypu30.1cm/sPV Peak Grad.1mmHg Tricuspid Valve TR Peak Afgihrjp997sg/sRAP [id number] Peak Gr.39mmHg [id number] LEFT VENTRICLE The left ventricle is normal size. There is mild concentric left ventricular hypertrophy. The left ventricular function is normal.EF-55-60% Septal motion consistent with conduction abnormality. Transmitral Doppler flow pattern is Grade III-reversible restrictive diastolic dysfunction. No left ventricle thrombus noted on this study. There is no ventricular septal defect visualized. There is no left ventricular aneurysm. There is no mass noted in the left ventricle. RIGHT VENTRICLE The right ventricle is normal size. There is normal right ventricular wall thickness. The right ventricular systolic function is normal. There is a pacemaker lead in the right ventricle. ATRIA The left atrium is moderately dilated. The right atrium is borderline dilated. The right atrium size is normal. There is a catheter/pacemaker lead seen in the right atrium. The interatrial septum is intact with no evidence for an atrial septal defect. AORTIC VALVE The aortic valve is calcified but opens well. The aortic valve is moderately sclerotic. There is trace aortic regurgitation. Aortic sclerosis Vs Mild There is no aortic valvular vegetation. MITRAL VALVE The mitral valve is thickened but opens well. Mitral annular calcification is moderate.( posterior) Mitral regurgitation is mild. There is no mitral valve stenosis. There is no evidence of mitral valve prolapse. TRICUSPID VALVE The tricuspid valve leaflets are thickened , but open well. There is moderate tricuspid regurgitation.RVSP-49 mmof Hg. There is no tricuspid valve stenosis. There is no tricuspid valve prolapse or vegetation. PULMONIC VALVE The pulmonary valve is normal in structure. There is mild to moderate pulmonic valvular regurgitation. There is no pulmonic valvular stenosis. GREAT VESSELS The aortic root is normal in size. The ascending aorta is normal in size. The pulmonary artery is normal. The IVC is normal in size and collapses >50% with inspiration. PERICARDIAL EFFUSION There is no pleural effusion. There is no pericardial effusion. <Conclusion> The left ventricle is normal size. There is mild concentric left ventricular hypertrophy. The left ventricular function is normal.EF-55-60% There is trace aortic regurgitation. Aortic sclerosis Vs Mild Mitral regurgitation is mild. There is moderate tricuspid regurgitation.RVSP-49 mmof Hg. There is mild to moderate pulmonic valvular regurgitation. The IVC is normal in size and collapses >50% with inspiration. There is no pericardial effusion. PPM lead noted in RA/RV.
--- NOTE | 2018-07-02 08:59 | HP ---
DATE OF EXAM: 06/30/2018 HISTORY OF PRESENT ILLNESS: The patient is currently in room 362, bed 2. He presented to my office yesterday afternoon complaining of generalized abdominal pain very severe in nature throughout the entire abdomen. He denied any chills, but he did mention that he had some fevers. PAST MEDICAL HISTORY: Remarkable for allergies, labyrinthitis, hyperlipidemia, and reflux. ALLERGIES: CODEINE, IODINATED CONTRAST, LEVOFLOXACIN, AND ALBUTEROL. FAMILY HISTORY: Noncontributory. SOCIAL HISTORY: The patient is a former smoker and does not use illicit substances. REVIEW OF SYSTEMS: Other than the abdominal pain and the fever is entirely unremarkable. PHYSICAL EXAMINATION: VITAL SIGNS: Temperature of 97.8, pulse rate of 64, blood pressure of 126/63, and O2 saturation of 95% on room air. HEENT: PERRLA. EOMI. No icterus present. NECK: Supple with full range of motion. No bruits or jugular venous distention is appreciated. There is no adenopathy. LUNGS: Clear to auscultation and percussion. HEART: Regular rate and rhythm. ABDOMEN: Soft, it is distended. He has four quadrant pain on palpation. There is no rebound and bowel sounds are absent. EXTREMITIES: Show no deformities or edema. NEUROLOGIC: The patient is intact. LABORATORY DATA: The patient was directed to go from the office to the emergency room. In the emergency room; white blood count was 13 and platelet count of 82,000. Chemistry was normal with the random glucose of 132, AST 37 with an ALT of 36. Bilirubin was 2.5 and it is now 2.2. The patient was admitted and NG tube was placed. He was put n.p.o. This morning, the patient has a white blood cell count of 10.7. His platelet count has come up to 69,000. Chemistry is normal with a random glucose of 101. He has eaten and he has had a bowel movement and subsequently had no abdominal pains. The abdominal examination on Monday at 2 o'clock in the afternoon is perfectly unremarkable, bowel sounds are normoactive. The patient will be discharged. DISCHARGE DIAGNOSES: 1. Small bowel obstruction. 2. Diabetes. 3. Allergic rhinitis. 4. Reflux esophagitis. 5. Hyperlipidemia. PLAN: He will be followed on an outpatient basis in the office next week. Ronald MD [facility] # [id number]
--- NOTE | 2018-07-03 02:54 | DS ---
ADMISSION DIAGNOSIS: Chest pain r/o ACS. DISCHARGE DIAGNOSIS: Musculoskeletal chest wall pain. SECONDARY DIAGNOSES: CAD, paroxysmal Afib, T2DM, hyperlipidemia, GERD, COPD, sick sinus syndrome s/p pacemaker placement and dementia. CONSULTATIONS: Dr. Maravilla (Cardiology) IMAGING STUDIES: 1. Chest x-ray demonstrated a pacemaker but otherwise no acute pathology. DIAGNOSTIC STUDIES: 1. TTE demonstrated mild concentric LVH with preserved EF of 55-60% with [id number] pulmonic valvular regurgitation. PROCEDURES: None. HISTORY OF PRESENT ILLNESS: The patient is an 82-year-old woman with multiple medical comorbidities including CAD, paroxysmal Afib and and sick sinus syndrome s/p pacemaker who presented for evaluation of a several day history of anterior chest pain, malaise and weakness. She was in her usual state of health until approximately 1 week prior to presentation when she developed the aforementioned symptoms. After several days she noticed no improvement and thus opted for ED evaluation. She denied palpitations, dyspnea, orthopnea or pedal edema associated with her symptoms. In the ED she was afebrile and hemodynamically stable, albeit mildly hypertensive. Laboratory studies were largely unremarkable and she was subsequently admitted for cardiac evaluation to rule out an acute coronary syndrome. HOSPITAL COURSE: Upon admission to the remote telemetry rodriguez she was evaluated by Dr. Maravilla of Cardiology. Cardiac enzymes were cycled every 8 hours for 3 sets, all of which were unremarkable. The patient also underwent an echocardiogram with the findings as described above. After a thorough workup demonstrated no evidence of ACS, and given the patient's resolution of symptoms and clinical stability, she was cleared for discharge to home. CONDITION: Fair, improved. DISPOSITION: Home. DISCHARGE MEDICATIONS: Carvedilol 12.5 mg p.o. b.i.d., Aspirin 81 mg p.o. daily, Lipitor 40 mg p.o. daily, Lasix 40 mg p.o. daily, Pepcid 40 mg p.o. daily and Donepezil 5 mg p.o. daily. DISCHARGE INSTRUCTIONS: The patient was advised that if she has any recurrence of her symptoms to present to her PMD or to the nearest ED immediately. FOLLOWUP: The patient to follow up with her PMD within 1 week of discharge. The patient to follow up with Dr. Maravilla as scheduled. Max Dela Cruz MD [facility]
== END 2018-06-30 18:47 | disposition home or self-care (01) | DRG 313 ==
LOC: ED 13:09 → ERH 15:14 → 3RNO 18:36
PROVIDERS: ADMIT Internal Medicine; ATTEND Student in an Organized Health Care Education/Training Program
DX: R07.89 Other chest pain (principal); I10 Essential (primary) hypertension; E11.9 Type 2 diabetes mellitus without complications; I25.10 Atherosclerotic heart disease of native coronary artery without angina pectoris; I48.0 Paroxysmal atrial fibrillation; J43.9 Emphysema, unspecified; I08.1 Rheumatic disorders of both mitral and tricuspid valves; E78.5 Hyperlipidemia, unspecified; F03.90 Unspecified dementia, unspecified severity, without behavioral disturbance, psychotic disturbance, mood disturbance, and anxiety; K21.0 Gastro-esophageal reflux disease with esophagitis; R26.81 Unsteadiness on feet; Z87.891 Personal history of nicotine dependence; Z95.0 Presence of cardiac pacemaker; Z95.5 Presence of coronary angioplasty implant and graft; Z79.82 Long term (current) use of aspirin

== ENCOUNTER 2018-07-11 14:08 | Outpatient (CLI) | payer MEDICARE | END 2018-07-11 14:09 | disposition home or self-care (01) | LOC: CARDIO 14:08 ==